=== PATIENT | female | born 1970 | race Caucasian/White ===

== ENCOUNTER 2020-01-26 07:09 | Outpatient (CLI) | payer BC, SELFPAY ==
--- NOTE | ~2020-01-26 | MM_ITS ---
EXAMINATION: MM screening [facility] BI w danielle HISTORY: Screening mammogram TECHNIQUE: Craniocaudal and mediolateral oblique 3-D tomosynthesis images were obtained and synthetic 2-D images were generated. CAD analysis was submitted and interpreted. COMPARISON: 01/24/2019, 01/22/2018, 01/18/2017 BREAST PARENCHYMAL COMPOSITION: There are scattered areas of fibroglandular density. FINDINGS: RIGHT BREAST: There is no evidence of suspicious mass, calcification, or architectural distortion to suggest malignancy. There has been no significant interval change. LEFT BREAST: An asymmetry is present in the middle third of the slightly inner breast best appreciate d 4.2 cm from the nipple on the craniocaudal view. IMPRESSION: 1. Left breast asymmetry on the craniocaudal view. 2. Additional mammographic views and possible breast ultrasound are recommended. BI-RADS Category 0: Incomplete: Needs additional imaging evaluation. Reviewed, dictated and finalized at location A. IMPRESSION: 1. Left breast asymmetry on the craniocaudal view. 2. Additional mammographic views and possible breast ultrasound are recommended . BI-RADS Category 0: Incomplete: Needs additional imaging evaluation.
== END 2020-01-26 07:10 | disposition home or self-care (01) ==
LOC: ANHIMG 07:14
PROVIDERS: PCP Family Medicine; Visit Provider Student in an Organized Health Care Education/Training Program
DX: Z12.31 Encounter for screening mammogram for malignant neoplasm of breast (principal); R92.8 Other abnormal and inconclusive findings on diagnostic imaging of breast
CPT/HCPCS: 77063; 77067

== ENCOUNTER 2020-02-19 11:52 | Outpatient (CLI) | payer BC, SELFPAY ==
--- NOTE | ~2020-02-19 | MMUS_ITS ---
EXAMINATION: MM diagnostic mammo unilat LT, US breast LT limited HISTORY: Left breast asymmetry on screening mammogram TECHNIQUE: Additional 3-D tomosynthesis images of the left breast were performed and synthetic 2-D im ages were generated. CAD analysis was submitted and interpreted. High resolution limited left breast ultrasound was performed. COMPARISON: 01/26/2020, 01/24/2019, 01/22/2018, 01/18/2017 FINDINGS: MAMMOGRAPHIC FINDINGS: A subtle asymmetry persists in the middle third of the breast at the 9:00 location 4 cm deep to the n ipple. With spot compression, this is less prominent than on screening mammogram. There is no suspici ous calcification or architectural distortion. ULTRASOUND: A 7 mm cyst is seen at the 9:00 location. No suspicious cystic or solid mass is identified. IMPRESSION: 1. No mammographic or sonographic evidence of malignancy. 2. Recommend routine screening mammography in one year. BI-RADS Category 2: Benign finding(s). Reviewed, dictated and finalized at location A. IMPRESSION: 1. No mammographic or sonographic evidence of malignancy. 2. Recommend routine screening mammography in one year. BI-RADS Category 2: Benign finding(s).
== END 2020-02-19 11:53 | disposition home or self-care (01) ==
PROVIDERS: PCP Family Medicine; Visit Provider Student in an Organized Health Care Education/Training Program
DX: R92.8 Other abnormal and inconclusive findings on diagnostic imaging of breast (principal)
CPT/HCPCS: 76642; 77065

== ENCOUNTER 2020-08-03 10:06 | Outpatient (CLI) | payer BC, SELFPAY ==
--- NOTE | ~2020-08-03 | US_ITS ---
EXAMINATION: US right upper quadrant EXAM DATE: 08/03/2020 10:34 INDICATION: Other specified abnormal findings of blood chemistry. Elevated liver function tests. TECHNIQUE: Multiple grayscale and Doppler images of the abdomen right upper quadrant were obtained (b y a technologist who performed the scan) and subsequently reviewed. There is no prior study for william bello. FINDINGS: The pancreatic head and body are normal in appearance. The pancreatic tail is not visualized. Mildl y diffusely heterogeneous liver echogenicity, nonspecific. There are no focal liver lesions identifi ed. There is no evidence of intrahepatic biliary duct dilation. Portal venous flow was seen in the hepatopedal, normal direction and has normal Doppler waveform. No right-sided hydronephrosis. Common bile duct measures 3 mm, which is normal. The gallbladder wall is normal in thickness, with ex pected amount of distention. No sonographic evidence of pericholecystic fluid. There is no cholelit hiases. Technologist performing exam reports patient did not demonstrate sonographic Madrid's sign. Please note that this sign is less reliable in patients who have received pain medication. IMPRESSION: 1. Unremarkable abdominal ultrasound exam. Reviewed, dictated and finalized at location B. ERY LABORER
== END 2020-08-03 10:07 | disposition home or self-care (01) ==
PROVIDERS: PCP Family Medicine; Visit Provider Internal Medicine Gastroenterology
DX: R79.89 Other specified abnormal findings of blood chemistry (principal)
CPT/HCPCS: 76705

== ENCOUNTER 2021-02-21 07:12 | Outpatient (CLI) | payer BC, SELFPAY ==
--- NOTE | ~2021-02-21 | MM_ITS ---
EXAMINATION: MM screening [facility] BI w danielle HISTORY: Screening mammogram TECHNIQUE: Craniocaudal and mediolateral oblique 3-D tomosynthesis images were obtained and synthetic 2-D images were generated. CAD analysis was submitted and interpreted. COMPARISON: 02/19/2020, 01/26/2020, 01/24/2019, 01/22/2018 BREAST PARENCHYMAL COMPOSITION: There are scattered areas of fibroglandular density. FINDINGS: There is no evidence of suspicious mass, calcification, or architectural distortion to sugg est malignancy in either breast. There has been no suspicious interval change. IMPRESSION: 1. No mammographic evidence of malignancy. 2. Recommend routine screening mammography in one year. BI-RADS Category 1: Negative Reviewed, dictated and finalized at location A.
== END 2021-02-21 07:13 | disposition home or self-care (01) ==
LOC: ANHIMG 07:16
PROVIDERS: PCP Family Medicine; Visit Provider Student in an Organized Health Care Education/Training Program
DX: Z12.31 Encounter for screening mammogram for malignant neoplasm of breast (principal)
CPT/HCPCS: 77063; 77067

== ENCOUNTER 2022-03-09 14:33 | Outpatient (CLI) | payer BC, SELFPAY ==
--- NOTE | ~2022-03-09 | US_ITS ---
EXAMINATION: US pelvic complete w TV DATE: 03/09/2022 15:12 INDICATION: Multi uterus seen on outside CT. Comparison:Ultrasound dated 03/19/2018 TECHNIQUE: Multiple transabdominal and endovaginal sonographic images of the pelvis performed. FINDINGS: The uterus measures 8.7 x 4.8 x 4.7 cm. Uterus is retroverted. The endometrial complex horacio ures 11 mm. The right ovary measures 2.8 x 1.8 x 2.6 cm and the left ovary measures 1.8 x 0.6 x 1.4 cm. There ar e small follicles in each ovary. Normal doppler signal in both ovaries. There is free fluid in the pelvis. There are no abnormal masses seen on either side. IMPRESSION: 1. Mild endometrial thickening measuring 11 mm. Correlate for menopausal status. Reviewed, dictated and finalized at location A. IMPRESSION: 1. Mild endometrial thickening measuring 11 mm. Correlate for menopausal status .
== END 2022-03-09 14:34 | disposition home or self-care (01) ==
PROVIDERS: PCP Family Medicine; Visit Provider Student in an Organized Health Care Education/Training Program
DX: N85.2 Hypertrophy of uterus (principal)
CPT/HCPCS: 76830; 76856

== ENCOUNTER 2022-03-15 12:05 | Outpatient (CLI) | payer BC, SELFPAY ==
--- NOTE | ~2022-03-15 | MM_ITS ---
EXAMINATION: MM screening [facility] BI w danielle HISTORY: Screening TECHNIQUE: Craniocaudal and mediolateral oblique 3-D tomosynthesis images were obtained and synthetic 2-D images were generated. CAD analysis was submitted and interpreted. COMPARISON: Comparison to multiple prior studies sequentially, with oldest reviewed study dated 03/2017. BREAST PARENCHYMAL COMPOSITION: There are scattered areas of fibroglandular density. FINDINGS: There is a new mass in the upper outer quadrant of the right breast. The left breast is sta ble without evidence for malignancy. IMPRESSION: 1. New right breast mass. 2. Additional mammographic views and possible breast ultrasound are recommended. BI-RADS Category 0: Incomplete: Needs additional imaging evaluation. Reviewed, dictated and finalized at location A. IMPRESSION: 1. New right breast mass. 2. Additional mammographic views and possible breast ultrasound are recommended . BI-RADS Category 0: Incomplete: Needs additional imaging evaluation.
== END 2022-03-15 12:06 | disposition home or self-care (01) ==
PROVIDERS: PCP Family Medicine; Visit Provider Student in an Organized Health Care Education/Training Program
DX: Z12.31 Encounter for screening mammogram for malignant neoplasm of breast (principal); R92.8 Other abnormal and inconclusive findings on diagnostic imaging of breast
CPT/HCPCS: 77063; 77067

== ENCOUNTER 2022-03-27 12:13 | Outpatient (CLI) | payer BC, SELFPAY ==
--- NOTE | ~2022-03-27 | MMUS_ITS ---
EXAMINATION: MM diagnostic [facility] RT w danielle, US breast RT complete HISTORY: New right breast mass reported in upper outer quadrant of right breast on 03/15/2022 screening mammogram TECHNIQUE: Additional 3-D tomosynthesis images of the right breast were performed and synthetic 2-D i mages were generated. CAD analysis was submitted and interpreted. High resolution complete right [facility] st ultrasound including all 4 quadrants and subareolar area was performed. COMPARISON: 03/15/2022 bilateral screening mammogram FINDINGS: MAMMOGRAPHIC FINDINGS: A circumscribed approximately 18 x 21 mm opacity is noted posteriorly in the upper outer quadrant. Ci rcumscribed margins and low density as well as partial halo sign suggest benign process, likely a cys t. ULTRASOUND: 10:00 2 cm from nipple: 2.3 x 1.2 x 1.8 cm sonolucency with through transmission posterior enhancemen t, no internal vascularity, consistent with cyst. 3.8 x 4.1 x 4 mm circumscribed mixed hypoechoic and fatty lesion without internal vascularity or susp icious shadowing is noted at 10:00 2 cm from nipple, likely benign. IMPRESSION: 1. Probably benign findings 2. Six-month targeted right breast ultrasound at 10:00 2 cm from the nipple is recommended. BI-RADS category 3, probably benign findings. Reviewed, dictated and finalized at location C. IMPRESSION: 1. Probably benign findings 2. Six-month targeted right breast ultrasound at 10:00 2 cm from the nipple is recommended. BI-RADS category 3, probably benign findings.
== END 2022-03-27 12:14 | disposition home or self-care (01) ==
LOC: ANHIMG 12:14
PROVIDERS: PCP Family Medicine; Visit Provider Student in an Organized Health Care Education/Training Program
DX: R92.8 Other abnormal and inconclusive findings on diagnostic imaging of breast (principal)
CPT/HCPCS: 76641; 77061; 77065; G0279

== ENCOUNTER → 2022-07-21 15:17 | Outpatient (CLI) | payer BC, SELFPAY ==
--- NOTE | ~2022-07-21 | XR_ITS ---
XR wrist LT min 3V DATE: 07/21/2022 15:31 INDICATION: Osteoarthritis TECHNIQUE: 4 views COMPARISON: None FINDINGS: There is a distal radial volar plate with multiple anteroposteriorly directed through screw s. No recent fracture or dislocation. No periosteal reaction or bone destruction. Moderately severe osteoarthritis at the first carpometacarpal joint. IMPRESSION: Moderately severe osteoarthritis at first carpometacarpal joint Reviewed, dictated and finalized at location B. LE HELPER
--- NOTE | ~2022-07-21 | XR_ITS ---
XR wrist RT min 3V DATE: 07/21/2022 15:31 INDICATION: Bilateral osteoarthritis TECHNIQUE: 4 views COMPARISON: None FINDINGS: Moderate osteoarthritis at the first carpometacarpal joint. No fracture or dislocation, periosteal reaction or bone destruction. No erosive change or chondrocalc inosis. IMPRESSION: Moderate osteoarthrosis at first carpometacarpal joint Reviewed, dictated and finalized at location B. ESS DEVELOPMENT ENGINEER
== END ==
PROVIDERS: PCP Family Medicine; Visit Provider Plastic Surgery
DX: M19.041 Primary osteoarthritis, right hand (principal); M19.042 Primary osteoarthritis, left hand
CPT/HCPCS: 73110

== ENCOUNTER 2022-10-02 10:58 | Outpatient (CLI) | payer BC, SELFPAY ==
--- NOTE | ~2022-10-02 | US_ITS ---
US breast RT limited DATE: 10/02/2022 11:34 INDICATION: Six-month follow-up of probably benign 2.3 x 1.2 x 1.8 cm cyst at 10:00 2 cm from nipple TECHNIQUE: High-resolution color flow ultrasound imaging targeted at 10:00 2 cm from nipple COMPARISON: 03/27/2022 diagnostic right mammogram and complete right breast ultrasound examination FINDINGS: Circumscribed sonolucency measuring 1.2 x 1 x 1.3 cm, with through transmission posterior e nhancement, consistent with simple cyst, diminished in size from approximately 2.4 x 1.2 x 1.9 cm on 03/27/2022. IMPRESSION: BI-RADS Category 2: Benign finding Recommendation: Routine mammographic screening Reviewed, dictated and finalized at Location A. Reviewed, dictated and finalized at location A. N'S STUDIES LECTURER
== END 2022-10-02 10:59 | disposition home or self-care (01) ==
LOC: ANHIMG 10:59
PROVIDERS: PCP Family Medicine; Visit Provider Student in an Organized Health Care Education/Training Program
DX: R92.8 Other abnormal and inconclusive findings on diagnostic imaging of breast (principal)
CPT/HCPCS: 76642

== ENCOUNTER 2023-06-19 09:05 | Outpatient (CLI) | payer BC, SELFPAY ==
--- NOTE | 2023-06-26 20:56 | WPDHOMESLEEP ---
Sleep Study - Home Unattended Date of Study: 06/19/23 Ordering Provider: Asher Horner APRN Interpreting Provider: Zaria Wolff, DO Home Sleep Study Type: Watch PAT Height: 1.63 m Weight: 74.843 kg Body Mass Index: 28.3 Neck Circumference (inches): 13 [place]: 6 Reason for Sleep Study Loud snoring, daytime hypersomnia Sleep History The patient is a 53-year-old with anxiety, chronic inflammatory demyelinating polyneuropathy, dyslipidemia, hypothyroidism, IBS with constipation myopathy, prediabetes proximal muscle weakness that had a sleep study ordered by the pulmonary group for evaluation of sleep apnea. The patient denies awakening from sleep short of breath. She denies awakening at night with heartburn, belching or cough. She frequently snores loudly enough that others complain. She denies having trouble sleeping when she has a cold. She denies waking up gasping for air throughout the night. She denies having breathing problems at night observed by herself or others. She rarely sweats excessively at night. He denies having heart palpitations or irregular heartbeats during the night. She denies falling asleep the day and while driving. She denies cataplexy and hypnagogic/ hypnopompic hallucinations. She denies having trouble at school or work due to sleepiness. She rarely feels unable to move while waking up or falling asleep. She denies feeling afraid of going to sleep. She denies having nightmares. She occasionally remembers her dreams. She occasionally has thoughts racing through her mind. She denies feeling sad or depressed. She occasionally has anxiety. He rarely has muscular tension. She rarely notices parts of her body jerk. She rarely kicks during night. She rarely has crawling and aching feelings in her and rarely has leg pain during the night. She rarely grinds her teeth during sleep but never awakens with morning jaw pain. She is rarely bothered by pain during the day and never awakened by pain during the night. She occasionally wakes feeling stiff in the morning. She rarely wakes up with sore or achy muscles. She rarely wakes up with pain in the, spine or other joints. She goes to bed at 9:30 p.m. on weekdays and between 930 to 10:30 p.m. on the weekends. She is able to fall asleep within a few. She wakes up 1-2 times throughout the night to let her dog out and get it drink. She is able to fall asleep relatively quickly. She wakes up at 6:00 a.m. on both weekdays and weekends. She typically gets 8-9 hours of sleep per night. She does not stay in bed long after waking up in the morning. She currently lives with her and children. She denies consuming any caffeinated beverages within 2 hours of bedtime. She denies engaging in physical exercise before bedtime. She will watch television before falling asleep. She will take naps in afternoon or the evening and they are refreshing. She will drink an occasional caffeinated beverage throughout the day but not on a regular basis. She rarely consumes alcoholic beverages. She denies tobacco and recreational drug use. [facility] Past Medical History Medical History Anxiety CIDP (chronic inflammatory demyelinating polyneuropathy) Dyslipidemia Elevated liver enzymes Hypothyroid Internal hemorrhoids Irritable bowel syndrome with constipation Left wrist fracture (~10/27/02) Myalgia Myopathy Prediabetes Proximal muscle weakness Vaginal delivery Vitamin D deficiency Surgical History Surgical History History of arthroscopy of knee (~1984) History of elbow surgery (~2013) History of eye surgery (~1971) History of open reduction and internal fixation (ORIF) procedure (~10/27/02) wrist History of strabismus surgery Family History Family History Father Family history of hyperchol
[2023-06-26 21:08] VITALS: BMI 28.3
== END 2023-06-20 09:23 | disposition home or self-care (01) ==
LOC: ANHCSM 09:07
PROVIDERS: PCP Family Medicine; Visit Provider Nurse Practitioner Family
DX: R06.83 Snoring (principal); R40.0 Somnolence
CPT/HCPCS: 95800

== ENCOUNTER 2023-08-16 16:28 | Outpatient (CLI) | payer BC, SELFPAY ==
--- NOTE | ~2023-08-16 | MM_ITS ---
EXAMINATION: MM screening [facility] BI w danielle HISTORY: Screening mammogram TECHNIQUE: Craniocaudal and mediolateral oblique 3-D tomosynthesis images were obtained and synthetic 2-D images were generated. CAD analysis was submitted and interpreted. COMPARISON: 03/27/2022, 03/15/2022, 02/21/2021, 01/26/2020, 01/24/2019 BREAST PARENCHYMAL COMPOSITION:Dense: The breasts are heterogeneously dense, which may obscure small masses. FINDINGS: No suspicious mass, calcification, or architectural distortion are identified in either truman ast to suggest malignancy. There has been no suspicious interval change. IMPRESSION: No mammographic evidence of malignancy. Recommend routine screening mammography in one year. BI-RADS Category 1: Negative Reviewed, dictated and finalized at location . ITE TREATER HELPER
== END 2023-08-16 16:29 | disposition home or self-care (01) ==
LOC: ANHIMG 16:30
PROVIDERS: PCP Family Medicine; Visit Provider Obstetrics & Gynecology
DX: Z12.31 Encounter for screening mammogram for malignant neoplasm of breast (principal)
CPT/HCPCS: 77063; 77067

== ENCOUNTER 2023-10-19 16:28 | Outpatient (CLI) | payer BC, SELFPAY ==
--- NOTE | ~2023-10-19 | US_ITS ---
EXAMINATION: US thyroid DATE: 10/19/2023 17:05 INDICATION: Hypothyroidism, unspecified. TECHNIQUE: Multiple ultrasound images of the thyroid were obtained. COMPARISON: None. FINDINGS: The right thyroid lobe measures 3.7 x 1.6 x 1.3 cm. The left thyroid lobe measures 3.8 x 1.1 x 1.4 c m. The thyroid is diffusely heterogeneous and hypoechoic. Vascularity is normal. No discrete nodule. IMPRESSION: 1. Heterogeneous thyroid, likely chronic lymphocytic (Stepan) thyroiditis. Reviewed, dictated and finalized at location E. K DRILLER
== END 2023-10-19 16:29 | disposition home or self-care (01) ==
PROVIDERS: PCP Family Medicine; Visit Provider Internal Medicine
DX: E03.9 Hypothyroidism, unspecified (principal); E04.9 Nontoxic goiter, unspecified
CPT/HCPCS: 76536

== ENCOUNTER 2024-04-10 11:19 | Outpatient (CLI) | payer BC, SELFPAY ==
[2024-04-10 12:25] LABS: Hematocrit 40.4 % (37.0-47.0); Hemoglobin 12.5 g/dL (12.0-15.0); Mean Corpuscular HGB Conc 30.9 g/dl (32-36); Mean Corpuscular Hemoglobin 27.4 pg (26-34); Mean Corpuscular Volume 88.4 fl (80-100); Mean Platelet Volume 8.8 fl (7.4-10.4); Platelet Count Result 414 k/mm3 (150-375); Red Blood Count 4.57 M/mm3 (4.2-5.4); Red Cell Distribution Width 14.6 % (11.5-14.5); White Blood Count 9.7 K/mm3 (4.5-10.0)
[2024-04-10 12:59] LABS: Alanine Aminotransferase 341 U/L (6-35); Alkaline Phosphatase 83 U/L (38-126); Anion Gap 7 mmol/L (4-12); Aspartate Amino Transferase 293 U/L (14-36); Bilirubin,Total 0.3 mg/dL (0.2-1.3); Blood Urea Nitrogen 15 mg/dL (7-17); Calcium 9.3 mg/dL (8.4-10.2); Carbon Dioxide 28 mmol/L (22-30); Chloride 100 mmol/L (98-107); Estimated Glomerular Filt Rate > 60; Glucose 86 mg/dL (65-110); Potassium 4.3 mmol/L (3.4-5.0); Sodium 135 mmol/L (137-145)
[2024-04-10 13:51] LABS: Hepatitis B Surface Antigen Negative (Negative)
[2024-04-10 13:57] LABS: HAV RESULT Negative (Negative); Hepatitis B Core IgM Result Negative (Negative)
[2024-04-10 14:09] LABS: Hepatitis C Virus Antibody Negative (Negative)
[2024-04-10 15:23] LABS: Creatine Kinase 9865 U/L (30-135)
[2024-04-18 16:28] LABS: Aldolase 74.7 U/L (< OR = 8.1)
== END 2024-04-10 11:20 | disposition home or self-care (01) ==
LOC: ANHLAB 11:21
PROVIDERS: PCP Family Medicine; Visit Provider Nurse Practitioner Family
DX: R74.8 Abnormal levels of other serum enzymes (principal); G72.9 Myopathy, unspecified
CPT/HCPCS: 36415; 80053; 80074; 82085; 82550; 85027

== ENCOUNTER 2024-04-15 08:16 | Outpatient (CLI) | payer BC, SELFPAY ==
--- NOTE | ~2024-04-15 | US_ITS ---
Limited Abdominal Sonogram: Real-time sonographic imaging of the right upper quadrant was performed. Clinical History: Abnormal serum enzyme levels Findings: The liver appears normal with no evidence of mass lesion or bile duct dilatation. Main por lcovis vein demonstrates normal direction of flow. The gallbladder is well distended, and appears normal with no evidence of gallstone or wall thickening. The common bile duct measures 3 mm. The visualize d pancreas, aorta, and IVC are unremarkable. Impression: No significant abnormality seen. Reviewed, dictated and finalized at location M. Impression: No significant abnormality seen.
== END 2024-04-15 08:17 | disposition home or self-care (01) ==
PROVIDERS: PCP Family Medicine; Visit Provider Nurse Practitioner Family
DX: R74.8 Abnormal levels of other serum enzymes (principal)
CPT/HCPCS: 76705

== ENCOUNTER 2024-06-09 08:10 | Emergency (ER) | payer BC, SELFPAY ==
--- NOTE | ~2024-06-09 | XR_ITS ---
EXAMINATION: XR abdomen/kub 1V DATE: 06/09/2024 08:39 INDICATION: Low abdominal cramping and bloating. TECHNIQUE: A supine view of the abdomen on 2 radiographs was obtained. COMPARISON: Small bowel series 12/10/2007 FINDINGS: There are no dilated loops of bowel. There is a small volume of stool in the colon. Small c alcifications in the pelvis are likely phleboliths. IMPRESSION: 1. Normal bowel gas pattern. Reviewed, dictated and finalized at location []
--- NOTE | 2024-06-09 08:21 | ED.ABDPAIN ---
HPI - Abdominal Pain General Chief Complaint: Abdominal Pain Stated Complaint: Stomach Pain/Vomiting Time Seen by Provider: 06/09/24 08:21 Source: patient Mode of arrival: ambulatory Limitations: no limitations History of Present Illness HPI narrative: 54 yo F presents with c/o ABD cramping, bloating since 2am. Has had 3 to 5 bowel movements. States were normal, not diarrhea. Hx of IBS. unsure if having IBS flare or appendicitis. No fever, chills, bodyaches, sweats. Has not taken any pain medication. Reports that pain is not that bad right now, is improving . Denies urinary symptoms. yesterday states ate alot of fruit . Watermelon, honey dew, cantaloupe. Also had cauliflower for dinner which is not normal for her. pt is well appearing, no pain distress. All systems reviewed and negative except as noted above. Related Data Home Medications Medication Instructions Recorded Confirmed cholecalciferol (vitamin D3) 125 250 mcg PO DAILY 04/26/23 05/08/24 mcg (5,000 unit) capsule vitamin B complex 1 tablet PO DAILY 04/26/23 05/08/24 Bacillus coagulans 250 million 1 cell PO DAILY 03/20/24 05/08/24 cell chewable tablet (Digestive Advantage Probiotic Gummy) Allergies Allergy/AdvReac Type Severity Reaction Status Date / Time [id number]-[id number]-FpA Reductase AdvReac Unknown myopathy Verified 06/09/24 08:46 Inhibitor [Gsgiutx-Uqz-Xmv Reductase Inhibitor] Review of Systems Review of Systems: CONSTITUTIONAL: Denies fever, chills, or sweats. EYES: Denies visual changes, redness, or discharge. ENT: Denies rhinorrhea, congestion, sore throat, or otalgia. CARDIOVASCULAR: Denies chest pain, palpitations, or edema. RESPIRATORY: Denies cough or dyspnea. GASTROINTESTINAL: Reports lower abdominal cramping, bloating. Denies nausea, vomiting, or diarrhea. GENITOURINARY: Denies dysuria or hematuria. SKIN: Denies rash or itching. MUSCULOSKELETAL: Denies back pain, joint pain, or myalgia. NEUROLOGIC: Denies headache, numbness, or weakness. PSYCHIATRIC: Denies anxiety or depression. All other systems reviewed are negative, except as documented in HPI. [facility] Past Medical History Medical History Anxiety CIDP (chronic inflammatory demyelinating polyneuropathy) Dyslipidemia Elevated liver enzymes Hypothyroid Internal hemorrhoids Irritable bowel syndrome with constipation Left wrist fracture (~10/27/02) Myalgia Myopathy Prediabetes Proximal muscle weakness Vaginal delivery Vitamin D deficiency Surgical History Surgical History History of arthroscopy of knee (~1984) History of elbow surgery (~2013) History of eye surgery (~1971) History of open reduction and internal fixation (ORIF) procedure (~10/27/02) wrist History of strabismus surgery Family History Family History Father Family history of hypercholesterolemia Other Family history of cardiovascular disease Social History Social History (Updated 05/08/24 @ 09:39 by Parviz Chawla MA) Smoking status: Never smoker Second hand tobacco smoke exposure: No Alcohol intake: current Alcohol use details: socially Substance use: never Substance use type: does not use Do You Feel Safe in your Home?: Yes Lack of Transportation: No Lack of Food: Never True Current Housing: I Have Housing Concerned About Future Housing: No Difficulty Paying Gas/Electric Bills: No Difficulty Paying for Meds: No Currently Unemployed: No Education: Trade/Vocational Certificate Difficulty w/ Childcare or Family Care: No Living arrangements: with family Occupation/Education: occupation Gender identity (if verbalized by the patient): Female Sexual Orientation (if Verbalized by the Patient): Straight or Heterosexual Agree to blood products: Yes Comments At time of signature, agree with nursing past medical, surgical, social and family history. There is no relevant family history pertinent to the presenting complaint. Exam Narrative: GENERAL: This is a well-nourished, well-developed patient, in no apparent distress. HEAD: normocephalic, atraumatic. EYES: PERRL. Sclera clear/white. Vision is grossly intact. EARS: External ears normal, auditory canals clear and without drainage, TMs normal without perforation. Hearing grossly intact. NOSE: External nose normal with no obvious nasal discharge, nares without redness, no rhinorrhea. THROAT: Mucous membranes moist, posterior pharynx clear. NECK: Neck supple, non-tender without lymphadenopathy, masses or thyromegaly. CARDIOVASCULAR: Regular rate and rhythm without murmurs, gallops, or rubs. RESPIRATORY: Clear to auscultation. Breath sounds equal bilaterally. No wheezes, rales, or rhonchi. GASTROINTESTINAL: Abdomen soft, suprapubic tender, mild distension. Bowel sounds are hyper active. No hepato-splenomegaly, or palpable masses. No guarding. SKIN: warm, Dry, intact with no suspicious lesions or rash, good texture and turgor. NEURO: awake, alert, and oriented to person, place and time. There were no obvious focal neurologic abnormalities. EXTREMITIES: No joint tenderness, effusion, or edema noted. Course Course Level of Care: Express Care Visit Vital Signs Vital signs: Reviewed MDM - Abdominal Pain MDM Narrative Medical decision making narrative: Discussed x-ray results with patient. Negative for bowel obstruction. Recommend patient purchase [id number] Gas-X to treat her symptoms. Recommend for any worsening of symptoms, right lower quadrant abdominal pain, change in bowel movement, fever go to the ER. Patient continues to be well-appearing, no pain distress. Patient is aware of diagnosis, understands and agrees to treatment plan. Anticipatory guidance given. Patient agrees to follow-up as directed and is aware of reasons to seek care at the emergency department. Portions of this record may have been created with voice recognition software Differential Diagnosis Differential diagnosis: Likely abdominal pain, acute appendicitis, constipation, diverticulitis, gastroenteritis and small bowel obstruction Imaging Data My impression: Agree with radiologist Radiologist's impression: EXAMINATION: XR abdomen/kub 1V DATE: 06/09/2024 08:39 INDICATION: Low abdominal cramping and bloating. TECHNIQUE: A supine view of the abdomen on 2 radiographs was obtained. COMPARISON: Small bowel series 12/10/2007 FINDINGS: There are no dilated loops of bowel. There is a small volume of stool in the colon. Small calcifications in the pelvis are likely phleboliths. IMPRESSION: 1. Normal bowel gas pattern. Discharge Plan Discharge Clinical Impression: Abdominal gas pain Patient Disposition: Home, Self-Care Condition: Stable Instructions: Gas and Bloating (ED), Abdominal Pain (ED) Additional Instructions: The x-ray of your abdomen was normal. Purchase over the counter Gas X and take as directed on packaging. Drink at least 64 ounces of water a day. Eat a bland diet today. Avoid spicy, fried, greasy food. If you have severe pain, fever, worsening of symptoms go to the ER. Prescriptions: No Action vitamin B complex Tablet 1 tablet PO DAILY cholecalciferol (vitamin D3) 125 mcg (5,000 unit) capsule 250 mcg PO DAILY Digestive Advantage Prob Gummy 250 million cell tablet,chewable PO ezetimibe [Zetia] 10 mg tablet 10 mg PO DAILY Qty: 90 3RF colestipol 1 gram tablet 1 g PO BID Qty: 180 1RF levothyroxine [Tirosint] 50 mcg capsule 50 mcg PO DAILY Qty: 90 2RF Follow-up/Referrals: Isra Burns MD [Primary Care Provider] - Time of Disposition: 08:52
[2024-06-09 08:23] VITALS: BP 165/80; PULSE 73; RESP 15; TEMP 36.3; O2SAT 98
== END 2024-06-09 08:54 | disposition home or self-care (01) ==
PROVIDERS: Emergency Provider Nurse Practitioner Family; PCP Family Medicine
DX: R14.1 Gas pain (principal); G61.81 Chronic inflammatory demyelinating polyneuritis; E78.5 Hyperlipidemia, unspecified; E03.9 Hypothyroidism, unspecified; R73.03 Prediabetes; E55.9 Vitamin D deficiency, unspecified
CPT/HCPCS: 74018; 99213; G0463

== ENCOUNTER 2024-06-10 00:14 | Inpatient (IN) | payer BC, SELFPAY ==
[2024-06-10] VITALS (20 sets, daily range): BP systolic 118–154; BP diastolic 56–67; PULSE 72–103; RESP 13–25; TEMP 36.4–37.5; O2SAT 92–100
--- NOTE | ~2024-06-10 | CT_ITS ---
CT of the Abdomen and Pelvis: Indication: Abdominal pain Technique: 2.5 mm axial scans were obtained through the abdomen and pelvis following intravenous adm inistration of 100 cc of Omnipaque 350. Dose reduction technique was used on this scan by utilizing a utomated exposure control and iterative reconstruction technique. The dose-length product (DLP) was 4 75.75 mGy-cm. Findings: Scans through the lung bases are unremarkable. The liver, spleen, pancreas, gallbladder, adrenals and kidneys are within normal limits. There are at herosclerotic calcifications of the aorta. No lymphadenopathy. Appendix is extensive dilated 10-11 mm. There is right lower quadrant inflammatory change. There is p robable mild wall thickening of the terminal ileum. No yossi bowel obstruction evident. Images through the pelvis were performed. Urinary bladder unremarkable. No adnexal mass seen. Small a mount of pelvic ascites present. Impression: Suspected acute appendicitis with right lower quadrant inflammatory change. No abscess or free air. O ther inflammatory bowel disease/enteritis would be a potential alternative consideration with reactiv e dilatation of the appendix. Correlate clinically. Reviewed, dictated and finalized at location . Impression: Suspected acute appendicitis with right lower quadrant inflammatory change. No abscess or free air. Other inflammatory bowel disease/enteritis would be a pote ntial alternative consideration with reactive dilatation of the appendix. Corre late clinically.
[2024-06-10 00:35] LABS: Basophils Percent Auto 0.4 % (0.2-1.2); Hematocrit 42.5 % (37.0-47.0); Hemoglobin 14.1 g/dL (12.0-15.0); Immature Granulocyte Absolute 0.04 K/mm3 (0.00-0.031); Immature Granulocyte Percent A 0.4 % (0-0.5); Lymphocytes Absolute Auto 0.87 K/mm3 (0.9-3.2); Lymphocytes Percent Auto 7.7 % (18.3-44.2); Mean Corpuscular HGB Conc 33.2 g/dl (32-36); Mean Corpuscular Hemoglobin 28.1 pg (26-34); Mean Corpuscular Volume 84.7 fl (80-100); Mean Platelet Volume 8.5 fl (7.4-10.4); Monocytes Absolute Auto 0.3 K/mm3 (0.1-0.6); Monocytes Percent Auto 2.4 % (2.6-8.5); Neutrophils Absolute Auto 10.1 K/mm3 (1.3-6.7); Neutrophils Percent Auto 89.1 % (45.5-73.1); Platelet Count Result 402 k/mm3 (150-375); Red Blood Count 5.02 M/mm3 (4.2-5.4); White Blood Count 11.3 K/mm3 (4.5-10.0)
[2024-06-10 00:58] LABS: Alanine Aminotransferase 345 U/L (6-35); Albumin Level 4.3 g/dL (3.5-5.1); Alkaline Phosphatase 86 U/L (38-126); Anion Gap 15 mmol/L (4-12); Aspartate Amino Transferase 232 U/L (14-36); Bilirubin,Total 1.6 mg/dL (0.2-1.3); Blood Urea Nitrogen 14 mg/dL (7-17); Calcium 9.3 mg/dL (8.4-10.2); Carbon Dioxide 17 mmol/L (22-30); Chloride 101 mmol/L (98-107); Estimated CRCL calculation 105 ml/min; Estimated Glomerular Filt Rate > 60; Glucose 232 mg/dL (65-110); Lipase 219 U/L (23-300); Potassium 3.9 mmol/L (3.4-5.0); Sodium 133 mmol/L (137-145)
[2024-06-10 05:24] LABS: BEDSIDEPREGUCG Negative (Negative)
[2024-06-10 05:47] LABS: Bacteria Urine 3+ /hpf; Budding Yeast Urine Present /hpf; Granular Casts Urine Present /lpf; Mucus Urine Present /lpf; Need Manual Microscopic Reviewed; Non Pathogenic Casts >20; RBC Urine >100 /hpf (0-2); Squamous Epithelial Cell Urine Many /hpf (Few)
[2024-06-10 05:49] LABS: Add Urine Microscopic? YES; Appearance Urine Turbid (Clear); Bilirubin Urine 2+ (Negative); Blood Urine 3+ (Negative); Color Urine Brown (Yellow); Glucose Urine UA Trace mg/dL (Negative); Ketones Urine 2+ mg/dL (Negative); Leukocyte Esterase Ur 1+ LEU/UL (Negative); Nitrate Urine Negative (Negative); Protein Urine 4+ mg/dL (Negative); Specific Grav Ur 1.036 (1.001-1.035); pH Urine 5.5 (5.0-9.0)
--- NOTE | 2024-06-10 06:25 | ED.GENADULT ---
HPI - General Adult General Chief complaint: Abdominal Pain <Marcelo Irving MD - Last Filed: 06/10/24 06:26> Stated complaint: medial abdominal pain with cramping <Marcelo Irving MD - Last Filed: 06/10/24 06:26> Time Seen by Provider: 06/10/24 06:31 <Marcelo Irving MD - Last Filed: 06/10/24 06:26> History of Present Illness HPI narrative: Patient is a 54-year-old female who presents emergency department with chief complaint of abdominal pain. Patient reports that she has been having abdominal discomfort since earlier this week and was seen in the urgent care and diagnosed gas pains. The patient reports she has had multiple bowel movements but no diarrhea reports that she has had some nausea as well the patient reports the pain is a cramping like pain generalized throughout the abdomen reports worse with palpation patient does report that her abdomen feels more full than normal <Marcelo Irving MD - Last Filed: 06/10/24 06:26> Related Data Home medications: Home Medications Medication Instructions Recorded Confirmed cholecalciferol (vitamin D3) 125 250 mcg PO DAILY 04/26/23 05/08/24 mcg (5,000 unit) capsule vitamin B complex 1 tablet PO DAILY 04/26/23 05/08/24 Bacillus coagulans 250 million 1 cell PO DAILY 03/20/24 05/08/24 cell chewable tablet (Digestive Advantage Probiotic Gummy) <Marcelo Irving MD - Last Filed: 06/10/24 06:26> Allergies/adverse reactions: Allergies Allergy/AdvReac Type Severity Reaction Status Date / Time Qdiuaev-AMC-VzW Reductase AdvReac Unknown myopathy Verified 06/09/24 08:46 Inhibitor [Jirwaux-Msz-Cqf Reductase Inhibitor] <Marcelo Irving MD - Last Filed: 06/10/24 06:26> Review of Systems Review of Systems: A 10 system review of systems was completed on the patient and is negative except for what is stated in the HPI. Nursing and ancillary documentation was reviewed. <Marcelo Irving MD - Last Filed: 06/10/24 06:26> PMFSH Past Medical History Medical History: Medical History Anxiety CIDP (chronic inflammatory demyelinating polyneuropathy) Dyslipidemia Elevated liver enzymes Hypothyroid Internal hemorrhoids Irritable bowel syndrome with constipation Left wrist fracture (~10/27/02) Myalgia Myopathy Prediabetes Proximal muscle weakness Vaginal delivery Vitamin D deficiency <Marcelo Irving MD - Last Filed: 06/10/24 06:26> Surgical History Surgical History: Surgical History History of arthroscopy of knee (~1984) History of elbow surgery (~2013) History of eye surgery (~1971) History of open reduction and internal fixation (ORIF) procedure (~10/27/02) wrist History of strabismus surgery <Marcelo Irving MD - Last Filed: 06/10/24 06:26> Family History Family History: Family History Father Family history of hypercholesterolemia Other Family history of cardiovascular disease <Marcelo Irving MD - Last Filed: 06/10/24 06:26> Social History Social History: Social History Smoking status: Never smoker Second hand tobacco smoke exposure: No Alcohol intake: current Alcohol use details: socially Substance use: never Substance use type: does not use Do You Feel Safe in your Home?: Yes Lack of Transportation: No Lack of Food: Never True Current Housing: I Have Housing Concerned About Future Housing: No Difficulty Paying Gas/Electric Bills: No Difficulty Paying for Meds: No Currently Unemployed: No Education: Trade/Vocational Certificate Difficulty w/ Childcare or Family Care: No Living arrangements: with family Occupation/Education: occupation Gender identity (if verbalized by the patient): Female Sexual Orientation (if Verbalized by the Patient): Straight or Heterosexual Agree to blood products: Yes <Marcelo Irving MD - Last Filed: 06/10/24 06:26> Exam Narrative: GENERAL: Well-appearing, well-nourished, and in no acute distress. HEAD: Normocephalic, atraumatic. EYES: PERRLA and EOMI. ENT: Nares clear, no rhinorrhea or epistaxis. Mucous membranes moist. NECK: Supple. CHEST: Clear to auscultation. No respiratory distress. HEART: Regular rate and rhythm. No murmur heard. Normal peripheral pulses. ABDOMEN: Soft, diffusely tender to palpation, nondistended, normal active bowel sounds. EXTREMITIES: Normal range of motion. No edema. SKIN: Warm, dry, no rash. NEURO: No focal deficits. Alert and oriented x3. PSYCH: Normal mood and affect. <Marcelo Irving MD - Last Filed: 06/10/24 06:26> Course Course Emergency Course: I assumed care of this patient at shift change with pending CT and disposition. I have re-examined the patient she is tender in the right lower abdomen. Discussed labs and CT findings with the patient. 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 Discussed with Dr. Lee will admit , advised IV zosyn <Jimenez Banks MD - Last Filed: 06/10/24 09:29> Vital Signs Vital signs: Vital Signs Temperature 36.6 C 06/10/24 00:15 Pulse Rate 100 06/10/24 00:15 Respiratory Rate 21 H 06/10/24 00:15 Blood Pressure 154/61 H 06/10/24 00:15 Pulse Oximetry 98 06/10/24 00:15 Oxygen Delivery Room Air 06/10/24 00:15 Temperature 36.6 C 06/10/24 00:15 Pulse Rate 95 06/10/24 07:59 Respiratory Rate 24 H 06/10/24 07:59 Blood Pressure 137/64 06/10/24 07:59 Pulse Oximetry 95 06/10/24 07:59 Oxygen Delivery Room Air 06/10/24 00:15 <Marcelo Irving MD - Last Filed: 06/10/24 06:26> Vital Signs Temperature 36.6 C 06/10/24 00:15 Pulse Rate 100 06/10/24 00:15 Respiratory Rate 21 H 06/10/24 00:15 Blood Pressure 154/61 H 06/10/24 00:15 Pulse Oximetry 98 06/10/24 00:15 Oxygen Delivery Room Air 06/10/24 00:15 Temperature 36.6 C 06/10/24 00:15 Pulse Rate 95 06/10/24 07:59 Respiratory Rate 24 H 06/10/24 07:59 Blood Pressure 137/64 06/10/24 07:59 Pulse Oximetry 95 06/10/24 07:59 Oxygen Delivery Room Air 06/10/24 00:15 <Jimenez Banks MD - Last Filed: 06/10/24 09:29> Medical Decision Making Differential Diagnosis Differential Diagnosis: Gastroenteritis, acute appendicitis, renal colic <Jimenez Banks MD - Last Filed: 06/10/24 09:29> Vital Signs Vital Signs: Vital Signs Temperature 36.6 C 06/10/24 00:15 Pulse Rate 100 06/10/24 00:15 Respiratory Rate 21 H 06/10/24 00:15 Blood Pressure 154/61 H 06/10/24 00:15 Pulse Oximetry 98 06/10/24 00:15 Oxygen Delivery Room Air 06/10/24 00:15 Temperature 36.6 C 06/10/24 00:15 Pulse Rate 95 06/10/24 07:59 Respiratory Rate 24 H 06/10/24 07:59 Blood Pressure 137/64 06/10/24 07:59 Pulse Oximetry 95 06/10/24 07:59 Oxygen Delivery Room Air 06/10/24 00:15 <Marcelo Irving MD - Last Filed: 06/10/24 06:26> Vital Signs Temperature 36.6 C 06/10/24 00:15 Pulse Rate 100 06/10/24 00:15 Respiratory Rate 21 H 06/10/24 00:15 Blood Pressure 154/61 H 06/10/24 00:15 Pulse Oximetry 98 06/10/24 00:15 Oxygen Delivery Room Air 06/10/24 00:15 Temperature 36.6 C 06/10/24 00:15 Pulse Rate 95 06/10/24 07:59 Respiratory Rate 24 H 06/10/24 07:59 Blood Pressure 137/64 06/10/24 07:59 Pulse Oximetry 95 06/10/24 07:59 Oxygen Delivery Room Air 06/10/24 00:15 <Jimenez Banks MD - Last Filed: 06/10/24 09:29> Lab Data Lab results reviewed: Yes I reviewed the patient's lab results. <Jimenez Banks MD - Last Filed: 06/10/24 09:29> Result diagrams: 06/10/24 00:30 06/10/24 00:31 <Marcelo Irving MD - Last Filed: 06/10/24 06:26> Labs: Lab Results 06/10/24 06/10/24 06/10/24 Range/Units 00:30 00:31 05:20 WBC 11.3 H (4.5-10.0) K/mm3 RBC 5.02 (4.2-5.4) M/mm3 Hgb 14.1 (12.0-15.0) g/dL Hct 42.5 (37.0-47.0) % MCV 84.7 (80-100) fl MCH 28.1 (26-34) pg MCHC 33.2 (32-36) g/dl RDW 14.0 (11.5-14.5) % Plt Count 402 H (150-375) k/mm3 MPV 8.5 (7.4-10.4) fl Immature Gran % (Auto) 0.4 (0-0.5) % Neut % (Auto) 89.1 H (45.5-73.1) % Lymph % (Auto) 7.7 L (18.3-44.2) % [place] % (Auto) 2.4 L (2.6-8.5) % Eos % (Auto) 0.0 (0-4.4) % Baso % (Auto) 0.4 (0.2-1.2) % Lymph # (Auto) 0.87 L (0.9-3.2) K/mm3 [place] # (Auto) 0.3 (0.1-0.6) K/mm3 Eos # (Auto) 0.0 (0-0.3) K/mm3 Baso # (Auto) 0.0 (0.0-0.1) K/mm3 Abs Immat Gran (auto) 0.04 H (0.00-0.031) K/mm3 Absolute Neuts (auto) 10.1 H (1.3-6.7) K/mm3 Absolute Nucleated RBC 0.000 (0.0-0.012) K/mm3 Nucleated RBC % 0.0 (0.0-0.2) % Sodium 133 L (137-145) mmol/L Potassium 3.9 (3.4-5.0) mmol/L Chloride 101 (98-107) mmol/L Carbon Dioxide 17 L (22-30) mmol/L Anion Gap 15 H (4-12) mmol/L BUN 14 (7-17) mg/dL Creatinine 0.50 L (0.7-1.0) mg/dL Estim Creat Clear Calc 105 ml/min Estimated GFR > 60 (59 - ) Glucose 232 H (65-110) mg/dL Calcium 9.3 (8.4-10.2) mg/dL Total Bilirubin 1.6 H (0.2-1.3) mg/dL AST 232 H (14-36) U/L ALT 345 H (6-35) U/L Alkaline Phosphatase 86 (38-126) U/L Total Protein 8.0 (6.3-8.2) g/dL Albumin 4.3 (3.5-5.1) g/dL Lipase 219 (23-300) U/L Urine Color Brown H (Yellow) Urine Appearance Turbid H (Clear) Urine pH 5.5 (5.0-9.0) Ur Specific [place] 1.036 H (1.001-1.035) Urine Protein 4+ H (Negative) mg/dL Urine Glucose (UA) Trace H (Negative) mg/dL Urine Ketones 2+ H (Negative) mg/dL Ur Blood (Man) 3+ H (Negative) Urine Nitrate Negative (Negative) Urine Bilirubin 2+ H (Negative) Urine Urobilinogen 1.0 (<2.0) mg/dL Add Ur Microanalysis Reviewed Leukocyte Esterase Rfl 1+ H (Negative) ANNABELLE/UL Urine RBC >100 H (0-2) /hpf Urine WBC 11-20 H (0-3) /hpf Ur Squamous Epith Cells Many H (Few) /hpf Urine Bacteria 3+ H /hpf Urine Casts >20 Granular Casts Present (None) /lpf Urine Mucus Present /lpf Urine Yeast (Budding) Present H (None) /hpf POC Urine HCG, Qual (Negative) 06/10/24 Range/Units 05:22 WBC (4.5-10.0) K/mm3 RBC (4.2-5.4) M/mm3 Hgb (12.0-15.0) g/dL Hct (37.0-47.0) % MCV (80-100) fl MCH (26-34) pg MCHC (32-36) g/dl RDW (11.5-14.5) % Plt Count (150-375) k/mm3 MPV (7.4-10.4) fl Immature Gran % (Auto) (0-0.5) % Neut % (Auto) (45.5-73.1) % Lymph % (Auto) (18.3-44.2) % [place] % (Auto) (2.6-8.5) % Eos % (Auto) (0-4.4) % Baso % (Auto) (0.2-1.2) % Lymph # (Auto) (0.9-3.2) K/mm3 [place] # (Auto) (0.1-0.6) K/mm3 Eos # (Auto) (0-0.3) K/mm3 Baso # (Auto) (0.0-0.1) K/mm3 Abs Immat Gran (auto) (0.00-0.031) K/mm3 Absolute Neuts (auto) (1.3-6.7) K/mm3 Absolute Nucleated RBC (0.0-0.012) K/mm3 Nucleated RBC % (0.0-0.2) % Sodium (137-145) mmol/L Potassium (3.4-5.0) mmol/L Chloride (98-107) mmol/L Carbon Dioxide (22-30) mmol/L Anion Gap (4-12) mmol/L BUN (7-17) mg/dL Creatinine (0.7-1.0) mg/dL Estim Creat Clear Calc ml/min Estimated GFR (59 - ) Glucose (65-110) mg/dL Calcium (8.4-10.2) mg/dL Total Bilirubin (0.2-1.3) mg/dL AST (14-36) U/L ALT (6-35) U/L Alkaline Phosphatase (38-126) U/L Total Protein (6.3-8.2) g/dL Albumin (3.5-5.1) g/dL Lipase (23-300) U/L Urine Color (Yellow) Urine Appearance (Clear) Urine pH (5.0-9.0) Ur Specific [place] (1.001-1.035) Urine Protein (Negative) mg/dL Urine Glucose (UA) (Negative) mg/dL Urine Ketones (Negative) mg/dL Ur Blood (Man) (Negative) Urine Nitrate (Negative) Urine Bilirubin (Negative) Urine Urobilinogen (<2.0) mg/dL Add Ur Microanalysis Leukocyte Esterase Rfl (Negative) ANNABELLE/UL Urine RBC (0-2) /hpf Urine WBC (0-3) /hpf Ur Squamous Epith Cells (Few) /hpf Urine Bacteria /hpf Urine Casts Granular Casts (None) /lpf Urine Mucus /lpf Urine Yeast (Budding) (None) /hpf POC Urine HCG, Qual Negative (Negative) <Marcelo Irving MD - Last Filed: 06/10/24 06:26> Lab Results 06/10/24 06/10/24 06/10/24 Range/Units 00:30 00:31 05:20 WBC 11.3 H (4.5-10.0) K/mm3 RBC 5.02 (4.2-5.4) M/mm3 Hgb 14.1 (12.0-15.0) g/dL Hct 42.5 (37.0-47.0) % MCV 84.7 (80-100) fl MCH 28.1 (26-34) pg MCHC 33.2 (32-36) g/dl RDW 14.0 (11.5-14.5) % Plt Count 402 H (150-375) k/mm3 MPV 8.5 (7.4-10.4) fl Immature Gran % (Auto) 0.4 (0-0.5) % Neut % (Auto) 89.1 H (45.5-73.1) % Lymph % (Auto) 7.7 L (18.3-44.2) % [place] % (Auto) 2.4 L (2.6-8.5) % Eos % (Auto) 0.0 (0-4.4) % Baso % (Auto) 0.4 (0.2-1.2) % Lymph # (Auto) 0.87 L (0.9-3.2) K/mm3 [place] # (Auto) 0.3 (0.1-0.6) K/mm3 Eos # (Auto) 0.0 (0-0.3) K/mm3 Baso # (Auto) 0.0 (0.0-0.1) K/mm3 Abs Immat Gran (auto) 0.04 H (0.00-0.031) K/mm3 Absolute Neuts (auto) 10.1 H (1.3-6.7) K/mm3 Absolute Nucleated RBC 0.000 (0.0-0.012) K/mm3 Nucleated RBC % 0.0 (0.0-0.2) % Sodium 133 L (137-145) mmol/L Potassium 3.9 (3.4-5.0) mmol/L Chloride 101 (98-107) mmol/L Carbon Dioxide 17 L (22-30) mmol/L Anion Gap 15 H (4-12) mmol/L BUN 14 (7-17) mg/dL Creatinine 0.50 L (0.7-1.0) mg/dL Estim Creat Clear Calc 105 ml/min Estimated GFR > 60 (59 - ) Glucose 232 H (65-110) mg/dL Calcium 9.3 (8.4-10.2) mg/dL Total Bilirubin 1.6 H (0.2-1.3) mg/dL AST 232 H (14-36) U/L ALT 345 H (6-35) U/L Alkaline Phosphatase 86 (38-126) U/L Total Protein 8.0 (6.3-8.2) g/dL Albumin 4.3 (3.5-5.1) g/dL Lipase 219 (23-300) U/L Urine Color Brown H (Yellow) Urine Appearance Turbid H (Clear) Urine pH 5.5 (5.0-9.0) Ur Specific [place] 1.036 H (1.001-1.035) Urine Protein 4+ H (Negative) mg/dL Urine Glucose (UA) Trace H (Negative) mg/dL Urine Ketones 2+ H (Negative) mg/dL Ur Blood (Man) 3+ H (Negative) Urine Nitrate Negative (Negative) Urine Bilirubin 2+ H (Negative) Urine Urobilinogen 1.0 (<2.0) mg/dL Add Ur Microanalysis Reviewed Leukocyte Esterase Rfl 1+ H (Negative) ANNABELLE/UL Urine RBC >100 H (0-2) /hpf Urine WBC 11-20 H (0-3) /hpf Ur Squamous Epith Cells Many H (Few) /hpf Urine Bacteria 3+ H /hpf Urine Casts >20 Granular Casts Present (None) /lpf Urine Mucus Present /lpf Urine Yeast (Budding) Present H (None) /hpf POC Urine HCG, Qual (Negative) 06/10/24 Range/Units 05:22 WBC (4.5-10.0) K/mm3 RBC (4.2-5.4) M/mm3 Hgb (12.0-15.0) g/dL Hct (37.0-47.0) % MCV (80-100) fl MCH (26-34) pg MCHC (32-36) g/dl RDW (11.5-14.5) % Plt Count (150-375) k/mm3 MPV (7.4-10.4) fl Immature Gran % (Auto) (0-0.5) % Neut % (Auto) (45.5-73.1) % Lymph % (Auto) (18.3-44.2) % [place] % (Auto) (2.6-8.5) % Eos % (Auto) (0-4.4) % Baso % (Auto) (0.2-1.2) % Lymph # (Auto) (0.9-3.2) K/mm3 [place] # (Auto) (0.1-0.6) K/mm3 Eos # (Auto) (0-0.3) K/mm3 Baso # (Auto) (0.0-0.1) K/mm3 Abs Immat Gran (auto) (0.00-0.031) K/mm3 Absolute Neuts (auto) (1.3-6.7) K/mm3 Absolute Nucleated RBC (0.0-0.012) K/mm3 Nucleated RBC % (0.0-0.2) % Sodium (137-145) mmol/L Potassium (3.4-5.0) mmol/L Chloride (98-107) mmol/L Carbon Dioxide (22-30) mmol/L Anion Gap (4-12) mmol/L BUN (7-17) mg/dL Creatinine (0.7-1.0) mg/dL Estim Creat Clear Calc ml/min Estimated GFR (59 - ) Glucose (65-110) mg/dL Calcium (8.4-10.2) mg/dL Total Bilirubin (0.2-1.3) mg/dL AST (14-36) U/L ALT (6-35) U/L Alkaline Phosphatase (38-126) U/L Total Protein (6.3-8.2) g/dL Albumin (3.5-5.1) g/dL Lipase (23-300) U/L Urine Color (Yellow) Urine Appearance (Clear) Urine pH (5.0-9.0) Ur Specific [place] (1.001-1.035) Urine Protein (Negative) mg/dL Urine Glucose (UA) (Negative) mg/dL Urine Ketones (Negative) mg/dL Ur Blood (Man) (Negative) Urine Nitrate (Negative) Urine Bilirubin (Negative) Urine Urobilinogen (<2.0) mg/dL Add Ur Microanalysis Leukocyte Esterase Rfl (Negative) ANNABELLE/UL Urine RBC (0-2) /hpf Urine WBC (0-3) /hpf Ur Squamous Epith Cells (Few) /hpf Urine Bacteria /hpf Urine Casts Granular Casts (None) /lpf Urine Mucus /lpf Urine Yeast (Budding) (None) /hpf POC Urine HCG, Qual Negative (Negative) <Jimenez Banks MD - Last Filed: 06/10/24 09:29> Imaging Data Radiologist's impression: ITS Impressions Abdomen/Pelvis CT 06/10/24 06:55 Impression: Suspected acute appendicitis with right lower quadrant inflammatory change. No abscess or free air. Other inflammatory bowel disease/enteritis would be a potential alternative consideration with reactive dilatation of the appendix. Correlate clinically. <Jimenez Banks MD - Last Filed: 06/10/24 09:29> Discharge Plan Discharge Clinical Impression: Acute appendicitis, Elevated LFTs <Marcelo Irving MD - Last Filed: 06/10/24 06:26> Patient Disposition: Still a Patient <Marcelo Irving MD - Last Filed: 06/10/24 06:26> Condition: Stable <Marcelo Irving MD - Last Filed: 06/10/24 06:26> Instructions: Antibiotic Form <Marcelo Irving MD - Last Filed: 06/10/24 06:26> Prescriptions: No Action vitamin B complex Tablet 1 tablet PO DAILY cholecalciferol (vitamin D3) 125 mcg (5,000 unit) capsule 250 mcg PO DAILY Digestive Advantage Prob Gummy 250 million cell tablet,chewable 1 cell PO DAILY ezetimibe [Zetia] 10 mg tablet 10 mg PO DAILY Qty: 90 3RF colestipol 1 gram tablet 1 g PO BID Qty: 180 1RF levothyroxine [Tirosint] 50 mcg capsule 50 mcg PO DAILY Qty: 90 2RF <Marcelo Irving MD - Last Filed: 06/10/24 06:26> Follow-up/Referrals: Isra Burns MD [Primary Care Provider] - <Marcelo Irving MD - Last Filed: 06/10/24 06:26> Time of Disposition: 09:29 <Marcelo Irving MD - Last Filed: 06/10/24 06:26> 09:29 <Jimenez Banks MD - Last Filed: 06/10/24 09:29>
[2024-06-10] MEDS: MORPHINE SULFATE (*CRX) 4 MG/ML INJ IV PUSH (06:29)
[2024-06-10] MEDS: ONDANSETRON INJ 4 MG/2 ML VIAL IV PUSH (06:29)
[2024-06-10] MEDS: SODIUM CHLORIDE 0.9% IV 1,000 ML 999 ML IV CONT (06:29)
[2024-06-10] MEDS: PIPERACILLN/TAZ 3.375GM/NS50ML 3.375 GM/50 ML BAG IVPB ×2 (09:40→16:08)
[2024-06-10] MEDS: SODIUM CHLORIDE 0.9% IV 1,000 ML 125 ML IV CONT (10:31)
--- NOTE | 2024-06-10 11:55 | P.HP_ITS ---
H&P: HPI History of Present Illness Date/Time: 06/10/24 11:55 Chief Complaint: Lower abdominal pain Narrative: This is a 54-year-old woman who presented to the ED today with complaints of lower abdominal pain. She reports waking up from sleep 2 nights ago around midnight with cramping lower abdominal pain. At first her pain was mild and she compares it to menstrual cramps. She then developed nausea and vomiting. She vomited multiple times through the night. Yesterday, her abdominal pain began to localize to the right lower quadrant. She was unable to eat anything all day due to poor appetite and nausea. Her abdominal pain was aggravated by any movement, bending, or walking. She went to an urgent care around 8:00 a.m. yesterday morning. They did an abdominal x-ray and she was reportedly told she was constipated. They recommended she go to the ED if her pain did not improve. Since her symptoms persisted, she came into the ED last night for further evaluation. Workup in the ED showed mild leukocytosis and CT evidence of acute appendicitis. Labs also showed elevated LFTs with total bilirubin 1.6, AST 232, and ALT 345. She has been following GI as an outpatient with extensive workup for elevated LFTs. She was previously on statins, which she reports led to a myopathy and were discontinued. Her outpatient workup has been negative for chronic liver disease. She reports recently having recurrent symptoms of generalized weakness and is scheduled to see Neurology in August. In the ED, her urine was grossly abnormal. Urine cx pending. She reports voiding without any difficulties and has not noticed any discolored urine up until this morning in the ED. She reports her urine has been clear and yellow, but she did noticed dark cloudy urine when she gave her urine specimen today. She denies dysuria, hematuria, urinary frequency, vaginal discharge or itching, or any other complaints. Our service was called for further evaluation of acute appendicitis. She is hemodynamically stable in the ED. She appears comfortable and is now seen with no family at the bedside. She is still complaining of lower abdominal pain that is worse in the right lower quadrant. Denies ever thompson ving this pain in the past. No previous abdominal surgeries. Review of Systems Review of Systems: All systems reviewed & are unremarkable except as noted in HPI and below PMFSH Past Medical History Medical History Anxiety CIDP (chronic inflammatory demyelinating polyneuropathy) Dyslipidemia Elevated liver enzymes Hypothyroid Internal hemorrhoids Irritable bowel syndrome with constipation Left wrist fracture (~10/27/02) Myalgia Myopathy Prediabetes Proximal muscle weakness Vaginal delivery Vitamin D deficiency Surgical History Surgical History History of arthroscopy of knee (~1984) History of elbow surgery (~2013) History of eye surgery (~1971) History of open reduction and internal fixation (ORIF) procedure (~10/27/02) wrist History of strabismus surgery Family History Family History Father Family history of hypercholesterolemia Other Family history of cardiovascular disease Social History Social History Smoking status: Never smoker Second hand tobacco smoke exposure: No Alcohol intake: current Alcohol use details: socially Substance use: never Substance use type: does not use Do You Feel Safe in your Home?: Yes Lack of Transportation: No Lack of Food: Never True Current Housing: I Have Housing Concerned About Future Housing: No Difficulty Paying Gas/Electric Bills: No Difficulty Paying for Meds: No Currently Unemployed: No Education: Trade/Vocational Certificate Difficulty w/ Childcare or Family Care: No Living arrangements: with family Occupation/Education: occupation Gender identity (if verbalized by the patient): Female Sexual Orientation (if Verbalized by the Patient): Straight or Heterosexual Agree to blood products: Yes Meds Home Medications and Allergies Home Medications Medication Instructions Recorded Confirmed Type cholecalciferol (vitamin D3) 125 250 mcg PO DAILY 04/26/23 05/08/24 History mcg (5,000 unit) capsule vitamin B complex 1 tablet PO DAILY 04/26/23 05/08/24 History colestipol 1 gram tablet 1 g PO BID #180 tabs 12/17/23 05/08/24 Rx Bacillus coagulans 250 million 1 cell PO DAILY 03/20/24 05/08/24 History cell chewable tablet (Digestive Advantage Probiotic Gummy) ezetimibe 10 mg tablet (Zetia) 10 mg PO DAILY #90 tabs 03/20/24 05/08/24 Rx Tirosint 50 mcg capsule 50 mcg PO DAILY #90 caps 05/19/24 Rx (levothyroxine) Allergies Allergy/AdvReac Type Severity Reaction Status Date / Time Ejhwlue-MYI-YqP Reductase AdvReac Unknown myopathy Verified 06/09/24 08:46 Inhibitor [Aooltdc-Rxg-Fql Reductase Inhibitor] Vital Signs Vital Signs - 24 hr 06/10/24 00:15 06/10/24 05:21 06/10/24 06:12 Temperature 97.9 F Pulse Rate 100 96 81 Respiratory Rate 21 H 20 16 Blood Pressure 154/61 H 130/57 L 118/60 Pulse Oximetry 98 100 100 Oxygen Delivery Room Air 06/10/24 07:14 06/10/24 07:59 06/10/24 09:43 Temperature Pulse Rate 96 95 97 Respiratory Rate 18 24 H 15 Blood Pressure 137/67 137/64 128/62 Pulse Oximetry 95 95 96 Oxygen Delivery 06/10/24 10:32 06/10/24 11:00 Temperature 98.1 F Pulse Rate 87 90 Respiratory Rate 25 H 20 Blood Pressure 127/58 L 127/58 L Pulse Oximetry 97 97 Oxygen Delivery Exam Const: General: comfortable and no acute distress Nutritional Appearance: average body habitus Orientation/consciousness: patient oriented x3 HENMT: Head: normocephalic and atraumatic Ears: hearing grossly normal trent aterally Mouth: Yes moist mucous membranes Eyes: General: appearance normal, both eyes and all related structures Pupils: Equal, round and reactive pupils present Neck: Neck: normal visual inspection and full ROM Resp: Effort & Inspection: no respiratory distress Auscultation: clear to auscultation bilaterally Cardio: Rate: regular rate Rhythm: regular rhythm Heart sounds: S1 normal heart sound present and S2 normal heart sound present Peripheral pulses: Peripheral pulses 2+ throughout GI: Inspection: non-distended, no scars and no visible herniation GI Palp: Yes Soft to palpation, Yes Tenderness to palpation present (GI) (lower abdominal tenderness with focal tenderness in the RLQ with guarding), Yes Guarding due to palpation present (GI) (RLQ), Yes No hepatosplenomegaly present and No Rebound tenderness present Percussion: Yes normal to percussion Auscultation: normal bowel sounds Skin: General skin exam: normal color Neuro: General: moves all extremities and no focal motor deficits Speech: normal speech Motor exam (neuro): 5/5 motor strength present throughout Extrem: General: normal to inspection and no edema Psych: Mental Status: mental status grossly normal Attitude: cooperative Insight: Good insight present (Psych) Judgement: Good judgement present (Psych) H&P: Results Labs Labs: Short CBC 06/10/24 Range/Units 00:30 WBC 11.3 H (4.5-10.0) K/mm3 Hgb 14.1 (12.0-15.0) g/dL Hct 42.5 (37.0-47.0) % Plt Count 402 H (150-375) k/mm3 BMP 06/10/24 00:31 Sodium 133 L Potassium 3.9 Chloride 101 Carbon Dioxide 17 L BUN 14 Creatinine 0.50 L Glucose 232 H Calcium 9.3 Liver Function 06/10/24 Range/Units 00:31 Total Bilirubin 1.6 H (0.2-1.3) mg/dL AST 232 H (14-36) U/L ALT 345 H (6-35) U/L Alkaline Phosphatase 86 (38-126) U/L Albumin 4.3 (3.5-5.1) g/dL Urine 06/10/24 Range/Units 05:20 Urine Color Brown H (Yellow) Urine Appearance Turbid H (Clear) Urine pH 5.5 (5.0-9.0) Ur Specific [place] 1.036 H (1.001-1.035) Urine Protein 4+ H (Negative) mg/dL Urine Glucose (UA) Trace H (Negative) mg/dL Imaging CT scan - abdomen: Radiologist's impression: ITS Impressions Abdomen/Pelvis CT 06/10/24 06:55 Impression: Suspected acute appendicitis with right lower quadrant inflammatory change. No abscess or free air. Other inflammatory bowel disease/enteritis would be a potential alternative consideration with reactive dilatation of the appendix. Correlate clinically. Assessment and Plan Assessment and plan (1) Acute appendicitis: Qualifiers: Acute appendicitis type: with localized peritonitis Appendicitis abscess presence: without abscess Appendicitis gangrene presence: without gangrene Appendicitis perforation presence: without perforation Qualified Code(s): K35.30 - Acute appendicitis with localized peritonitis, without perforation or gangrene Code(s): K35.80 - Unspecified acute appendicitis Status: Acute Assessment and Plan: CT scan showed a dilated appendix with surrounding inflammatory changes, consistent with acute appendicitis. Her clinical presentation and exam correlate with these findings. We discussed both nonoperative treatment with IV antibiotics/monitoring versus proceeding with surgery. We discussed the details of a laparoscopic appendectomy, possible open, under general anesthesia that would be done by Dr. Lee. Description of the procedure, risks, benefits, alternatives, and expected recovery were discussed. She wishes to proceed with surgery. Will keep her NPO and continue IV antibiotics, IV fluids, and analgesics as needed pre-operatively. She has been added to the surgery schedule for today. (2) Elevated LFTs: Code(s): R79.89 - Other specified abnormal findings of blood chemistry Status: Acute Assessment and Plan: AST and ALT have been chronically elevated around 200-300 in the past. She has been following GI and had extensive outpatient workup that has been negative for any chronic liver conditions. Her total bilirubin is also slightly up to 1.6. CT abdomen and pelvis showed no abnormalities of the gallbladder or liver. Discussed labs with the patient and recommended f/u outpatient with GI as scheduled. (3) Abnormal urinalysis: Code(s): R82.90 - Unspecified abnormal findings in urine Status: Acute Assessment and Plan: UA is grossly abnormal in the ER. She denies any urinary symptoms. She has been voiding normally and noticed dark cloudy urine for the first time in the ER today. Denies any vaginal discharge or symptoms. She has had intermittent abnormal vaginal bleeding about 5 times in the past year, which she is following with Gynecology (with a scheduled f/u next week). Urine cx pending. She is currently on IV Zosyn preoperatively and could consider discharging her on oral antibiotics with PCP f/u. (4) Prediabetes: Code(s): R73.03 - Prediabetes Status: Acute (5) CIDP (chronic inflammatory demyelinating polyneuropathy): Code(s): G61.81 - Chronic inflammatory demyelinating polyneuritis Status: Acute Assessment and Plan: Previously treated for statin myopathy and was evaluated by Neurology. Her symptoms resolved, but returned recently with generalized weakness of her extremities. She is scheduled to be evaluated by a new Neurologist for a second opinion in August. (6) Irritable bowel syndrome with constipation: Code(s): K58.1 - Irritable bowel syndrome with constipation Status: Acute Plan I have discussed the patient's case and plan of care with Dr. Lee.
--- NOTE | 2024-06-10 13:11 | WPDHPUPDATE1 ---
History and Physical Update Update Date/Time: 06/10/24 13:11 History and Physical has been reviewed, including an updated exam of the patient. There are NO changes in the patient's condition. Risks, benefits, and alternatives have been discussed and questions answered. Patient agrees to proceed with procedure.
--- NOTE | 2024-06-10 13:42 | P.PNAN_ITS ---
Anes - Initial Pre Proc Eval Procedure: Operation Date: 06/10/24 15:00 Proposed Procedures p Laparoscopic Appendectomy, Possible Open - Wang Lee DO Date/Time: 06/10/24 13:42 Surgeon: Wang Lee DO Pre Op Diagnosis: Acute Appendicitis Patient Data Age: 54 Gender: F Height: 1.63 m Weight: 73.63 kg Last Vital Signs Temp 37.5 C 06/10/24 12:24 Pulse 90 06/10/24 12:24 Resp 20 06/10/24 11:00 BP 141/56 H 06/10/24 12:24 Pulse Ox 94 06/10/24 12:24 O2 Del Method Room Air 06/10/24 12:24 Allergies Allergy/AdvReac Type Severity Reaction Status Date / Time Ammpswn-UBL-UcE Reductase AdvReac Unknown myopathy Verified 06/09/24 08:46 Inhibitor [Jbpgemg-Tkb-Jyk Reductase Inhibitor] Home Medications Medication Instructions Recorded Confirmed Type cholecalciferol (vitamin D3) 125 250 mcg PO DAILY 04/26/23 05/08/24 History mcg (5,000 unit) capsule vitamin B complex 1 tablet PO DAILY 04/26/23 05/08/24 History colestipol 1 gram tablet 1 g PO BID #180 tabs 12/17/23 05/08/24 Rx Bacillus coagulans 250 million 1 cell PO DAILY 03/20/24 05/08/24 History cell chewable tablet (Digestive Advantage Probiotic Gummy) ezetimibe 10 mg tablet (Zetia) 10 mg PO DAILY #90 tabs 03/20/24 05/08/24 Rx Tirosint 50 mcg capsule 50 mcg PO DAILY #90 caps 05/19/24 Rx (levothyroxine) Laboratory Tests 06/10/24 06/10/24 06/10/24 00:30 00:31 05:20 WBC 11.3 H K/mm3 (4.5-10.0) RBC 5.02 M/mm3 (4.2-5.4) Hgb 14.1 g/dL (12.0-15.0) Hct 42.5 % (37.0-47.0) MCV 84.7 fl (80-100) MCH 28.1 pg (26-34) MCHC 33.2 g/dl (32-36) RDW 14.0 % (11.5-14.5) Plt Count 402 H k/mm3 (150-375) MPV 8.5 fl (7.4-10.4) Immature Gran % (Auto) 0.4 % (0-0.5) Neut % (Auto) 89.1 H % (45.5-73.1) Lymph % (Auto) 7.7 L % (18.3-44.2) [place] % (Auto) 2.4 L % (2.6-8.5) Eos % (Auto) 0.0 % (0-4.4) Baso % (Auto) 0.4 % (0.2-1.2) Lymph # (Auto) 0.87 L K/mm3 (0.9-3.2) [place] # (Auto) 0.3 K/mm3 (0.1-0.6) Eos # (Auto) 0.0 K/mm3 (0-0.3) Baso # (Auto) 0.0 K/mm3 (0.0-0.1) Abs Immat Gran (auto) 0.04 H K/mm3 (0.00-0.031) Absolute Neuts (auto) 10.1 H K/mm3 (1.3-6.7) Absolute Nucleated RBC 0.000 K/mm3 (0.0-0.012) Nucleated RBC % 0.0 % (0.0-0.2) Sodium 133 L mmol/L (137-145) Potassium 3.9 mmol/L (3.4-5.0) Chloride 101 mmol/L (98-107) Carbon Dioxide 17 L mmol/L (22-30) Anion Gap 15 H mmol/L (4-12) BUN 14 mg/dL (7-17) Creatinine 0.50 L mg/dL (0.7-1.0) Estim Creat Clear Calc 105 ml/min Estimated GFR > 60 (59 - ) Glucose 232 H mg/dL (65-110) Calcium 9.3 mg/dL (8.4-10.2) Total Bilirubin 1.6 H mg/dL (0.2-1.3) AST 232 H U/L (14-36) ALT 345 H U/L (6-35) Alkaline Phosphatase 86 U/L (38-126) Total Protein 8.0 g/dL (6.3-8.2) Albumin 4.3 g/dL (3.5-5.1) Lipase 219 U/L (23-300) Urine Color Brown H (Yellow) Urine Appearance Turbid H (Clear) Urine pH 5.5 (5.0-9.0) Ur Specific [place] 1.036 H (1.001-1.035) Urine Protein 4+ H mg/dL (Negative) Urine Glucose (UA) Trace H mg/dL (Negative) Urine Ketones 2+ H mg/dL (Negative) Ur Blood (Man) 3+ H (Negative) Urine Nitrate Negative (Negative) Urine Bilirubin 2+ H (Negative) Urine Urobilinogen 1.0 mg/dL (<2.0) Add Ur Microanalysis Reviewed Leukocyte Esterase Rfl 1+ H ANNABELLE/UL (Negative) Urine RBC >100 H /hpf (0-2) Urine WBC 11-20 H /hpf (0-3) Ur Squamous Epith Cells Many H /hpf (Few) Urine Bacteria 3+ H /hpf Urine Casts >20 Granular Casts Present /lpf (None) Urine Mucus Present /lpf Urine Yeast (Budding) Present H /hpf (None) POC Urine HCG, Qual 06/10/24 05:22 WBC RBC Hgb Hct MCV MCH MCHC RDW Plt Count MPV Immature Gran % (Auto) Neut % (Auto) Lymph % (Auto) [place] % (Auto) Eos % (Auto) Baso % (Auto) Lymph # (Auto) [place] # (Auto) Eos # (Auto) Baso # (Auto) Abs Immat Gran (auto) Absolute Neuts (auto) Absolute Nucleated RBC Nucleated RBC % Sodium Potassium Chloride Carbon Dioxide Anion Gap BUN Creatinine Estim Creat Clear Calc Estimated GFR Glucose Calcium Total Bilirubin AST ALT Alkaline Phosphatase Total Protein Albumin Lipase Urine Color Urine Appearance Urine pH Ur Specific [place] Urine Protein Urine Glucose (UA) Urine Ketones Ur Blood (Man) Urine Nitrate Urine Bilirubin Urine Urobilinogen Add Ur Microanalysis Leukocyte Esterase Rfl Urine RBC Urine WBC Ur Squamous Epith Cells Urine Bacteria Urine Casts Granular Casts Urine Mucus Urine Yeast (Budding) POC Urine HCG, Qual Negative (Negative) Patient hx anesthesia problems: none Family hx anesthesia problems: none Results Review: All pre-operative results and documents have been reviewed as part of the pre- operative evaluation. [facility] [place] Past Medical History Medical History Anxiety CIDP (chronic inflammatory demyelinating polyneuropathy) Dyslipidemia Elevated liver enzymes Hypothyroid Internal hemorrhoids Irritable bowel syndrome with constipation Left wrist fracture (~10/27/02) Myalgia Myopathy Prediabetes Proximal muscle weakness Vaginal delivery Vitamin D deficiency Surgical History Surgical History History of arthroscopy of knee (~1984) History of elbow surgery (~2013) History of eye surgery (~1971) History of open reduction and internal fixation (ORIF) procedure (~10/27/02) wrist History of strabismus surgery Family History Family History Father Family history of hypercholesterolemia Other Family history of cardiovascular disease Social History Social History Smoking status: Never smoker Second hand tobacco smoke exposure: No Alcohol intake: current Alcohol use details: socially Substance use: never Substance use type: does not use Do You Feel Safe in your Home?: Yes Lack of Transportation: No Lack of Food: Never True Current Housing: I Have Housing Concerned About Future Housing: No Difficulty Paying Gas/Electric Bills: No Difficulty Paying for Meds: No Currently Unemployed: No Education: Trade/Vocational Certificate Difficulty w/ Childcare or Family Care: No Living arrangements: with family Occupation/Education: occupation Gender identity (if verbalized by the patient): Female Sexual Orientation (if Verbalized by the Patient): Straight or Heterosexual Agree to blood products: Yes Anes - Eval Final PreProcedure Day of Procedure 06/10/24 13:42 Patient weight: overweight Heart: regular rate and rhythm Lungs: clear to auscultation Airway: Mallampati scale class II Neurological: alert and oriented Last oral intake: >/= 8 hours ASA classification: II Emergent: no Anesthetic plan: proceed Anesthesia type and monitoring: general ETT and standard monitoring Results Review: All pre-operative results and documents have been reviewed as part of the pre- operative evaluation. Informed Consent: The patient's anesthetic plan and its attendant risks and benefits were discussed with the patient/family/POA. Questions were solicited and answers provided to the satisfaction of the patient/family/POA.
[2024-06-10] MEDS: LACTATED RINGERS 1,000 ML 30 ML IV CONT ×2 (13:51→15:43)
[2024-06-10] MEDS: BUPIVACAINE/EPINEPHRINE 0.5% 50 ML VIAL 30 ML INFILTRATE (15:02)
[2024-06-10] MEDS: KETOROLAC 30 MG/ML VIAL (*BKC) IV PUSH (15:12)
--- NOTE | 2024-06-10 16:10 | W.PM.PROC2 ---
Procedure Note - Detailed Date of Procedure 06/10/24 Pre-op Diagnosis Acute Appendicitis Post-op Diagnosis Same (Acute perforated appendicitis with generalized peritonitis) Procedure Performed Laparoscopic appendectomy Surgeon Wang Lee, DO Anesthesia General and Local (0.5% bupivicaine with epinephrine) Indications This is a 54-year-old woman who presented to the emergency department today complaining of right lower quadrant abdominal pain. Her symptoms started about 2 days ago and continued to worsen. She was also experiencing nausea and vomiting. In the emergency department she was noted to have an elevated white blood count and CT showed evidence of acute appendicitis. Discussions were made with the patient about treatment options and decision was made to proceed with laparoscopic appendectomy, possible open. Findings Laparoscopic appendectomy was performed. The abdomen was inspected as soon as a laparoscopic port was placed and there did appear to be signs of purulence fluid throughout the abdomen. There appeared to be some reactive hyperemia of some of the loops of small bowel as well as at the cecum. The appendix appeared inflamed and perforated near the base. I was able to identify healthy appearing appendix just beyond the perforation to allow for the stapler to be advanced. The appendix was removed and sent to the lab for pathology. There appeared to be more purulence fluid down in the pelvis. The abdomen and pelvis was irrigated with about 2 L of sterile saline. No other significant abnormalities were noted. Description of Procedure Procedure as well as risks, benefits, and alternatives were explained to the patient. The patient agreed to proceed. Written consent was obtained and placed in chart prior to procedure. The patient was brought back to surgical suite. She was placed supine on operating table. Time-out was done to confirm the patient and procedure. The patient was then intubated by the Anesthesia Department. Her abdomen was prepped and draped in sterile fashion using chlorhexidine prep. A 5 mm incision was made just to the left of the patient's umbilicus and a 5 mm Optiview trocar was advanced through the abdominal layers under direct visualization. Once inside the peritoneal cavity, carbon dioxide insufflation was used to create a pneumoperitoneum. The camera was inserted and the abdomen was inspected. No immediate abnormalities were identified. The patient was then placed in slight Trendelenburg position and rotated to the left. A 5 mm incision was made in the suprapubic region in midline and a 5 mm trocar was inserted under direct visualization. A 12 mm incision was made in the left lower quadrant and a 12 mm trocar was inserted under direct visualization. The right lower quadrant was carefully inspected. The cecum was identified and then this was traced back to the appendix. The appendix was identified and grasped at the mesoappendix and lifted anteriorly. Careful blunt dissection was carried out at the base of the appendix through the mesoappendix using a [place] grasper. An Endo-ILYA 45 mm blue load stapler was then advanced across the base of the appendix and clamped and fired. A white reload was then clamped across the mesoappendix and fired. This freed up our appendix completely. It was then placed in an EndoCatch bag and removed through the left lower quadrant port. The staple lines were then inspected. Hemostasis appeared adequate and the staple lines appeared secure. The area was then irrigated with sterile saline. The pelvis was then carefully inspected and irrigated with sterile saline as well and the remainder of the abdomen was carefully inspected. The patient was then flattened out in bed. One final inspection was made around the abdominal cavity and no other abnormalities were seen. The left lower quadrant port was removed and a Saman-Zaira cone was used to approximate the fascia with an 0 Vicryl simple interrupted suture. The remaining ports were then removed under direct visualization. The camera was removed and the pneumoperitoneum was released. 0.5% bupivacaine with epinephrine was infiltrated locally around each of the incisions. The skin of the incisions was then approximated using 4-0 Monocryl subcuticular suture and Exofin glue was applied on top. The patient was then awakened from anesthesia, extubated, and transferred to Recovery. Estimated Blood Loss 10 Urine Output 300 Pathology Yes (Appendix) Complications No immediate complications Condition Stable Disposition Floor [facility] Billing Surgery - Charge Forward: Surgery Billing
--- NOTE | 2024-06-10 17:36 | ADMGEN ---
This patient, Edwige Bryan, was admitted to 2 Medical Room 259-. Patient/family oriented to hospital policies and general routines including ID bracelet, bed and alarms, visiting hours, pain management, procedures, bathroom and other care routines, personal items, smoking policy, room service/diet, and visiting hours. Information on how to activate the Rapid Response Team has been discussed. Patient/Family are encouraged to report perceived risks to care and to ask questions if they do not understand what they are told or what they should do.
[2024-06-10] MEDS: LACTATED RINGERS 1,000 ML 100 ML IV CONT (17:45)
[2024-06-11] VITALS (8 sets, daily range): BP systolic 132–155; BP diastolic 55–83; PULSE 65–91; RESP 16–20; TEMP 36.2–36.8; O2SAT 95–99
[2024-06-11 06:22] LABS: Basophils Percent Auto 0.2 % (0.2-1.2); Hematocrit 37.4 % (37.0-47.0); Hemoglobin 11.7 g/dL (12.0-15.0); Immature Granulocyte Absolute 0.05 K/mm3 (0.00-0.031); Immature Granulocyte Percent A 0.4 % (0-0.5); Lymphocytes Absolute Auto 1.21 K/mm3 (0.9-3.2); Lymphocytes Percent Auto 9.3 % (18.3-44.2); Mean Corpuscular HGB Conc 31.3 g/dl (32-36); Mean Corpuscular Hemoglobin 28.1 pg (26-34); Mean Corpuscular Volume 89.9 fl (80-100); Mean Platelet Volume 9.1 fl (7.4-10.4); Monocytes Absolute Auto 0.4 K/mm3 (0.1-0.6); Monocytes Percent Auto 3.4 % (2.6-8.5); Neutrophils Absolute Auto 11.3 K/mm3 (1.3-6.7); Neutrophils Percent Auto 86.7 % (45.5-73.1); Platelet Count Result 354 k/mm3 (150-375); Red Blood Count 4.16 M/mm3 (4.2-5.4); Red Cell Distribution Width 14.6 % (11.5-14.5)
[2024-06-11 06:40] LABS: Alanine Aminotransferase 263 U/L (6-35); Albumin Level 3.5 g/dL (3.5-5.1); Alkaline Phosphatase 74 U/L (38-126); Anion Gap 6 mmol/L (4-12); Aspartate Amino Transferase 120 U/L (14-36); Bilirubin,Total 0.8 mg/dL (0.2-1.3); Blood Urea Nitrogen 18 mg/dL (7-17); Carbon Dioxide 27 mmol/L (22-30); Chloride 103 mmol/L (98-107); Estimated CRCL calculation 90 ml/min; Estimated Glomerular Filt Rate > 60; Glucose 111 mg/dL (65-110); Potassium 3.7 mmol/L (3.4-5.0); Sodium 136 mmol/L (137-145)
[2024-06-11] MEDS: ENOXAPARIN 40 MG/0.4 ML SYRINGE SUB-Q (08:10)
[2024-06-11] MEDS: HYDROcodone/acetaminophen (*CRX) 5-325 MG TABLET 1 TAB PO ×2 (08:13→18:26)
--- NOTE | 2024-06-11 08:59 | PM.PNGS ---
Progress Note: A&P Assessment and Plan (1) Acute appendicitis: Qualifiers: Acute appendicitis type: with generalized peritonitis Appendicitis abscess presence: without abscess Appendicitis gangrene presence: without gangrene Appendicitis perforation presence: with perforation Qualified Code(s): K35.201 - Acute appendicitis with generalized peritonitis, with perforation, without abscess Code(s): K35.80 - Unspecified acute appendicitis Status: Acute Plan Continue Zosyn Will resume IV fluids as patient might be developing ileus Continue clear liquids today Subjective Subjective Date/Time Seen: 06/11/24 08:59 Interval history: Nauseated and bloated with clear liquids. No vomiting. +Flatus and small liquid BM. Pain controlled. No fevers. Exam GI: Inspection: distended and incision (intact with glue) GI Palp: Yes Soft to palpation, Yes Tenderness to palpation present (GI) (mild) and No Guarding due to palpation present (GI) Auscultation: Hypoactive bowel sounds present Objective Data Vital Signs Vital Signs: Vital Signs - 24 hr 06/10/24 09:43 06/10/24 10:32 06/10/24 11:00 Temperature 98.1 F Pulse Rate 97 87 90 Respiratory Rate 15 25 H 20 Blood Pressure 128/62 127/58 L 127/58 L Pulse Oximetry 96 97 97 Oxygen Delivery Oxygen Flow Rate 06/10/24 12:24 06/10/24 15:37 06/10/24 15:50 Temperature 99.5 F 97.6 F Pulse Rate 90 103 H 90 Respiratory Rate 20 20 Blood Pressure 141/56 H 125/65 149/59 H Pulse Oximetry 94 97 99 Oxygen Delivery Room Air Simple Face Mask Simple Face Mask Oxygen Flow Rate 8 8 06/10/24 16:05 06/10/24 16:20 06/10/24 16:35 Temperature Pulse Rate 93 88 83 Respiratory Rate 22 H 13 17 Blood Pressure 145/61 H 139/61 138/65 Pulse Oximetry 94 95 95 Oxygen Delivery Room Air Nasal Cannula Nasal Cannula Oxygen Flow Rate 2 2 06/10/24 17:00 06/10/24 17:15 06/10/24 17:45 Temperature 97.6 F 97.6 F 97.6 F Pulse Rate 75 74 72 Respiratory Rate 16 17 17 Blood Pressure 134/59 L 132/62 145/59 H Pulse Oximetry 100 100 100 Oxygen Delivery Oxygen Flow Rate 06/10/24 18:31 06/10/24 20:48 06/10/24 20:30 Temperature 97.6 F 97.5 F L Pulse Rate 75 77 77 Respiratory Rate 17 16 16 Blood Pressure 132/59 L 129/64 Pulse Oximetry 92 95 95 Oxygen Delivery Room Air Oxygen Flow Rate 06/11/24 02:31 06/11/24 04:30 Temperature 97.6 F 98.0 F Pulse Rate 65 78 Respiratory Rate 16 16 Blood Pressure 138/62 132/55 L Pulse Oximetry 97 99 Oxygen Delivery Oxygen Flow Rate Intake/Output Intake/Output: Intake & Output 06/08/24 06/09/24 06/10/24 06/11/24 23:59 23:59 23:59 23:59 Intake Total 1450 400 Output Total 300 Balance 1150 400 Meds/Results Medications: Active Medications Generic Name Dose Route Start Last Admin Trade Name Freq PRN Reason Stop Dose Admin Hydrocodone Bitart/Acetaminophen 1 tab 06/10/24 16:46 06/11/24 08:13 Hydrocodone/Acetaminophen (*Crx) 5-325 Mg Tablet PO 1 tab Q4H PRN Administration Pain Rated 4-6 Hydrocodone Bitart/Acetaminophen 1 tab 06/10/24 16:46 Hydrocodone/Acetaminophen (*Crx) 7.5-325 Mg Tablet PO Q4H PRN Pain Rated 7-10 Diphenhydramine HCl 25 mg 06/10/24 16:46 Diphenhydramine Hcl Inj 50 Mg/Ml Vial IV PUSH Q6H PRN Itching Enoxaparin Sodium 40 mg 06/11/24 09:00 06/11/24 08:10 Enoxaparin 40 Mg/0.4 Ml Syringe SUB-Q 40 mg DAILY AMANDA Administration Hydromorphone HCl 1 mg 06/10/24 16:46 Hydromorphone Hcl Inj (*Crx) 1 Mg/Ml Syr IV PUSH Q2H PRN Breakthrough Pain Rated 7-10 or NPO Hydromorphone HCl 0.5 mg 06/10/24 16:46 Hydromorphone Hcl Inj (*Crx) 1 Mg/Ml Syr IV PUSH Q2H PRN Breakthrough Pain Rated 4-6 or NPO Ibuprofen 800 mg in 200 mls @ 400 mls/hr 06/10/24 16:46 Caldolor 800 Mg/200 Ml IVPB Q6H PRN Breakthrough Pain Rated 1-3 or NPO Lactated Ringer's 1,000 mls @ 100 mls/hr 06/11/24 09:00 Lr - Lactated Ringers Iv IV CONT .Q10H AMANDA Piperacillin/Tazobactam/Dextrose 3.375 gm in 50 mls @ 100 mls/hr 06/11/24 09:00 Zosyn 3.375 Gm/Ns 50 Ml IVPB Q6H AMANDA Ibuprofen 600 mg 06/10/24 16:46 Ibuprofen 600 Mg Tablet PO Q6H PRN Pain Rated 1-3 Naloxone HCl 0.1 mg 06/10/24 16:46 Naloxone Hcl 0.4 Mg/Ml Vial IV PUSH Q2M PRN Opiate Reversal Ondansetron HCl 4 mg 06/10/24 16:46 Ondansetron Inj 4 Mg/2 Ml Vial IV PUSH Q4H PRN Nausea And Vomiting Radiology Results: ITS Impressions Abdomen/Pelvis CT 06/10/24 06:55 Impression: Suspected acute appendicitis with right lower quadrant inflammatory change. No abscess or free air. Other inflammatory bowel disease/enteritis would be a potential alternative consideration with reactive dilatation of the appendix. Correlate clinically. Labs Labs: Laboratory Results - last 24 hr 06/11/24 05:35 WBC 13.0 H RBC 4.16 L Hgb 11.7 L Hct 37.4 MCV 89.9 D MCH 28.1 MCHC 31.3 L RDW 14.6 H Plt Count 354 MPV 9.1 Immature Gran % (Auto) 0.4 Neut % (Auto) 86.7 H Lymph % (Auto) 9.[address] [place] % (Auto) 3.4 Eos % (Auto) 0.0 Baso % (Auto) 0.2 Lymph # (Auto) 1.21 [place] # (Auto) 0.4 Eos # (Auto) 0.0 Baso # (Auto) 0.0 Abs Immat Gran (auto) 0.05 H Absolute Neuts (auto) 11.3 H Absolute Nucleated RBC 0.000 Nucleated RBC % 0.0 Sodium 136 L Potassium 3.7 Chloride 103 Carbon Dioxide 27 Anion Gap 6 BUN 18 H Creatinine 0.60 L Estim Creat Clear Calc 90 Estimated GFR > 60 Glucose 111 H Calcium 9.0 Total Bilirubin 0.8 Direct Bilirubin 0.0 AST 120 H ALT 263 H Alkaline Phosphatase 74 Total Protein 7.0 Albumin 3.5
[2024-06-11] MEDS: PIPERACILLN/TAZ 3.375GM/NS50ML 3.375 GM/50 ML BAG IVPB ×3 (09:11→20:22)
[2024-06-11] MEDS: LACTATED RINGERS 1,000 ML 100 ML IV CONT ×2 (09:12→21:01)
[2024-06-11] MEDS: ONDANSETRON INJ 4 MG/2 ML VIAL IV PUSH (09:52)
--- NOTE | 2024-06-11 14:23 | P.PNAN_ITS ---
Anes - Prog Note Post-Op Date/Time: 06/11/24 14:23 Cardiovascular status: normal Respiratory status: normal Airway patency: baseline Mental status: baseline Post-Op hydration status: normal Vital Signs: Last Vital Signs Temp 97.7 F 06/11/24 14:00 Pulse 82 06/11/24 14:00 Resp 20 06/11/24 14:00 BP 152/73 H 06/11/24 14:00 Pulse Ox 98 06/11/24 14:00 O2 Del Method Room Air 06/11/24 08:10 O2 Flow Rate 2 06/10/24 16:35 Pain Score (VAS): 0/10 I/O: Intake & Output 06/10/24 06/11/24 06/11/24 23:59 07:59 15:59 Intake Total 400 400 236 Output Total 300 Balance 100 400 236 Laboratory Tests 06/11/24 05:35 06/11/24 05:35 06/11/24 05:35 WBC 13.0 H RBC 4.16 L Hgb 11.7 L Hct 37.4 MCV 89.9 D MCH 28.1 MCHC 31.3 L RDW 14.6 H Plt Count 354 MPV 9.1 Immature Gran % (Auto) 0.4 Neut % (Auto) 86.7 H Lymph % (Auto) 9.3 L [place] % (Auto) 3.4 Eos % (Auto) 0.0 Baso % (Auto) 0.2 Lymph # (Auto) 1.21 [place] # (Auto) 0.4 Eos # (Auto) 0.0 Baso # (Auto) 0.0 Abs Immat Gran (auto) 0.05 H Absolute Neuts (auto) 11.3 H Absolute Nucleated RBC 0.000 Nucleated RBC % 0.0 Sodium 136 L Potassium 3.7 Chloride 103 Carbon Dioxide 27 Anion Gap 6 BUN 18 H Creatinine 0.60 L Estim Creat Clear Calc 90 Estimated GFR > 60 Glucose 111 H Calcium 9.0 Total Bilirubin 0.8 Direct Bilirubin 0.0 AST 120 H ALT 263 H Alkaline Phosphatase 74 Total Protein 7.0 Albumin 3.5 Post-procedural complaints: none Patient Feedback: Patient satisfied with anesthetic care.
[2024-06-12] MEDS: PIPERACILLN/TAZ 3.375GM/NS50ML 3.375 GM/50 ML BAG IVPB ×4 (03:16→22:11)
[2024-06-12 05:17] VITALS: BP 146/61; PULSE 81; RESP 16; TEMP 36.5; O2SAT 99
[2024-06-12] MEDS: LACTATED RINGERS 1,000 ML 100 ML IV CONT ×2 (05:39→16:33)
[2024-06-12 06:22] LABS: Hematocrit 36.8 % (37.0-47.0); Hemoglobin 11.1 g/dL (12.0-15.0); Mean Corpuscular HGB Conc 30.2 g/dl (32-36); Mean Corpuscular Hemoglobin 28.4 pg (26-34); Mean Corpuscular Volume 94.1 fl (80-100); Mean Platelet Volume 8.9 fl (7.4-10.4); Platelet Count Result 337 k/mm3 (150-375); Red Blood Count 3.91 M/mm3 (4.2-5.4); Red Cell Distribution Width 14.5 % (11.5-14.5); White Blood Count 11.5 K/mm3 (4.5-10.0)
[2024-06-12 06:32] LABS: Anion Gap 11 mmol/L (4-12); Blood Urea Nitrogen 23 mg/dL (7-17); Calcium 8.6 mg/dL (8.4-10.2); Carbon Dioxide 20 mmol/L (22-30); Chloride 103 mmol/L (98-107); Estimated CRCL calculation 62 ml/min; Estimated Glomerular Filt Rate > 60; Glucose 125 mg/dL (65-110); Potassium 3.7 mmol/L (3.4-5.0); Sodium 134 mmol/L (137-145)
[2024-06-12] MEDS: ENOXAPARIN 40 MG/0.4 ML SYRINGE SUB-Q (08:24)
[2024-06-12] MEDS: ONDANSETRON INJ 4 MG/2 ML VIAL IV PUSH (08:32)
--- NOTE | 2024-06-12 11:53 | P.PNGS_ITS ---
Progress Note: A&P Assessment and Plan (1) Acute appendicitis: Qualifiers: Acute appendicitis type: with generalized peritonitis Appendicitis abscess presence: without abscess Appendicitis gangrene presence: without gangrene Appendicitis perforation presence: with perforation Qualified Code(s): K35.201 - Acute appendicitis with generalized peritonitis, with perforation, without abscess Code(s): K35.80 - Unspecified acute appendicitis Status: Acute (2) Postoperative ileus: Code(s): K91.89 - Other postprocedural complications and disorders of digestive system; K56.7 - Ileus, unspecified Status: Acute Plan * Continue Zosyn * Await improved bowel function * Continue clear liquids Subjective Subjective Date/Time Seen: 06/12/24 11:53 Interval history: Passing flatus. Still feeling bloated and not much appetite. A little nauseated but no vomiting. Pain controlled and up ambulating. Exam GI: Inspection: distended and incision (intact with glue) GI Palp: Yes Soft to palpation, Yes Tenderness to palpation present (GI) (mild) and No Guarding due to palpation present (GI) Auscultation: Hypoactive bowel sounds present Objective Data Vital Signs Vital Signs: Vital Signs - 24 hr 06/11/24 14:00 06/11/24 18:26 06/11/24 20:17 Temperature 97.7 F 97.2 F L 98.2 F Pulse Rate 82 91 75 Respiratory Rate 20 18 18 Blood Pressure 152/73 H 155/80 H 154/83 H Pulse Oximetry 98 99 95 Oxygen Delivery 06/11/24 20:20 06/11/24 23:44 06/12/24 05:17 Temperature 97.9 F 97.7 F Pulse Rate 75 80 81 Respiratory Rate 18 16 16 Blood Pressure 149/60 H 146/61 H Pulse Oximetry 95 99 99 Oxygen Delivery Room Air Intake/Output Intake/Output: Intake & Output 06/09/24 06/10/24 06/11/24 06/12/24 23:59 23:59 23:59 23:59 Intake Total 1450 2025 2029 Output Total 300 Balance 1150 2025 2029 Meds/Results Medications: Active Medications Generic Name Dose Route Start Last Admin Trade Name Freq PRN Reason Stop Dose Admin Hydrocodone Bitart/Acetaminophen 1 tab 06/10/24 16:46 06/11/24 18:26 Hydrocodone/Acetaminophen (*Crx) 5-325 Mg Tablet PO 1 tab Q4H PRN Administration Pain Rated 4-6 Hydrocodone Bitart/Acetaminophen 1 tab 06/10/24 16:46 Hydrocodone/Acetaminophen (*Crx) 7.5-325 Mg Tablet PO Q4H PRN Pain Rated 7-10 Diphenhydramine HCl 25 mg 06/10/24 16:46 Diphenhydramine Hcl Inj 50 Mg/Ml Vial IV PUSH Q6H PRN Itching Enoxaparin Sodium 40 mg 06/11/24 09:00 06/12/24 08:24 Enoxaparin 40 Mg/0.4 Ml Syringe SUB-Q 40 mg DAILY AMANDA Administration Hydromorphone HCl 1 mg 06/10/24 16:46 Hydromorphone Hcl Inj (*Crx) 1 Mg/Ml Syr IV PUSH Q2H PRN Breakthrough Pain Rated 7-10 or NPO Hydromorphone HCl 0.5 mg 06/10/24 16:46 Hydromorphone Hcl Inj (*Crx) 1 Mg/Ml Syr IV PUSH Q2H PRN Breakthrough Pain Rated 4-6 or NPO Ibuprofen 800 mg in 200 mls @ 400 mls/hr 06/10/24 16:46 Caldolor 800 Mg/200 Ml IVPB Q6H PRN Breakthrough Pain Rated 1-3 or NPO Lactated Ringer's 1,000 mls @ 100 mls/hr 06/11/24 09:00 06/12/24 09:02 Lr - Lactated Ringers Iv IV CONT 100 mls/hr .Q10H AMANDA Infusion Piperacillin/Tazobactam/Dextrose 3.375 gm in 50 mls @ 100 mls/hr 06/11/24 09:00 06/12/24 08:54 Zosyn 3.375 Gm/Ns 50 Ml IVPB Infused Q6H AMANDA Infusion Ibuprofen 600 mg 06/10/24 16:46 Ibuprofen 600 Mg Tablet PO Q6H PRN Pain Rated 1-3 Naloxone HCl 0.1 mg 06/10/24 16:46 Naloxone Hcl 0.4 Mg/Ml Vial IV PUSH Q2M PRN Opiate Reversal Ondansetron HCl 4 mg 06/10/24 16:46 06/12/24 08:32 Ondansetron Inj 4 Mg/2 Ml Vial IV PUSH 4 mg Q4H PRN Administration Nausea And Vomiting Radiology Results: ITS Impressions Abdomen/Pelvis CT 06/10/24 06:55 Impression: Suspected acute appendicitis with right lower quadrant inflammatory change. No abscess or free air. Other inflammatory bowel disease/enteritis would be a potential alternative consideration with reactive dilatation of the appendix. Correlate clinically. Labs Labs: Laboratory Results - last 24 hr 06/12/24 06:08 WBC 11.5 H RBC 3.91 L Hgb 11.1 L Hct 36.8 L MCV 94.1 MCH 28.4 MCHC 30.2 L RDW 14.5 Plt Count 337 MPV 8.9 Sodium 134 L Potassium 3.7 Chloride 103 Carbon Dioxide 20 L Anion Gap 11 BUN 23 H Creatinine 0.90 Estim Creat Clear Calc 62 Estimated GFR > 60 Glucose 125 H Calcium 8.6
[2024-06-12] MEDS: HYDROcodone/acetaminophen (*CRX) 5-325 MG TABLET 1 TAB PO (12:14)
[2024-06-12 14:00] VITALS: BP 138/64; PULSE 78; RESP 16; TEMP 36.5; O2SAT 99
[2024-06-12 20:00] VITALS: BP 142/63; PULSE 74; RESP 12; TEMP 36.1; O2SAT 96
[2024-06-12 21:09] VITALS: BP 142/63; PULSE 74; RESP 12; TEMP 36.1; O2SAT 96
[2024-06-13] MEDS: PIPERACILLN/TAZ 3.375GM/NS50ML 3.375 GM/50 ML BAG IVPB ×3 (03:17→14:08)
[2024-06-13] MEDS: LACTATED RINGERS 1,000 ML 100 ML IV CONT (04:28)
[2024-06-13 05:16] VITALS: BP 154/64; PULSE 77; RESP 16; TEMP 36.6; O2SAT 97
[2024-06-13 05:53] LABS: Anion Gap 10 mmol/L (4-12); Blood Urea Nitrogen 19 mg/dL (7-17); Calcium 9.5 mg/dL (8.4-10.2); Carbon Dioxide 25 mmol/L (22-30); Chloride 101 mmol/L (98-107); Estimated CRCL calculation 56 ml/min; Estimated Glomerular Filt Rate 58; Glucose 117 mg/dL (65-110); Potassium 3.9 mmol/L (3.4-5.0); Sodium 136 mmol/L (137-145)
[2024-06-13 06:14] LABS: Hematocrit 41.7 % (37.0-47.0); Hemoglobin 12.2 g/dL (12.0-15.0); Mean Corpuscular HGB Conc 29.3 g/dl (32-36); Mean Corpuscular Hemoglobin 28.4 pg (26-34); Mean Platelet Volume 9.1 fl (7.4-10.4); Platelet Count Result 409 k/mm3 (150-375); Red Cell Distribution Width 14.6 % (11.5-14.5); White Blood Count 9.1 K/mm3 (4.5-10.0)
[2024-06-13] MEDS: ENOXAPARIN 40 MG/0.4 ML SYRINGE SUB-Q (08:25)
[2024-06-13 14:00] VITALS: BP 144/58; PULSE 75; RESP 16; TEMP 36.6; O2SAT 98
--- NOTE | 2024-06-13 15:04 | P.DS_ITS ---
DS: Admitting Diagnosis Discharge Date 06/13/2024 Admitting Diagnosis Acute perforated appendicitis, hypothyroid DS: Discharge Diagnosis Discharge Diagnosis (1) Acute appendicitis: Qualifiers: Acute appendicitis type: with generalized peritonitis Appendicitis abscess presence: without abscess Appendicitis gangrene presence: without gangrene Appendicitis perforation presence: with perforation Qualified Code(s): K35.201 - Acute appendicitis with generalized peritonitis, with perforation, without abscess Code(s): K35.80 - Unspecified acute appendicitis Status: Acute (2) Hypothyroid: Code(s): E03.9 - Hypothyroidism, unspecified Status: Acute DS: Summary Hospital Course Reason for hospitalization: Acute perforated appendicitis Hospital Course: This is a 54-year-old woman who presented to the emergency department on 06/10/2024 with complaints of right lower quadrant abdominal pain. Her imaging showed evidence of acute appendicitis and she had an elevated white blood count. Her history and exam were consistent with acute appendicitis. She underwent laparoscopic appendectomy on 06/10/2024 and was found to have perforated appendicitis at that time. She was returned to the surgical floor postoperatively and Zosyn was continued. She was started on a clear liquid diet initially. On postop day 1 her white blood count was slightly improved and her pain was well controlled but she was still feeling bloated and somewhat nauseated. She was kept on clear liquid diet to prevent any worsening signs of ileus. On postop day 2 she was still feeling bloated and did not have much appetite. She was ambulating in the halls and was overall gradually feeling better. She was passing some flatus. On postop day 3 she was feeling much better and had multiple bowel movements. She was advanced to full liquid diet and then to a regular diet and seemed to tolerate this well. She was remaining hemodynamically stable and afebrile. She was discharged on 06/13/2024. Status at Discharge Functional status at discharge: independent ambulation Overall status at discharge: patient is progressing back to baseline Time Spent with Patient Time attestation: Total time spent providing and/or coordinating discharge services: Time spent: Less than 30 minutes Exam Const: General: comfortable, no acute distress and alert Resp: Effort & Inspection: normal respiratory effort Auscultation: clear to auscultation bilaterally Cardio: Rate: regular rate Rhythm: regular rhythm Heart sounds: S1 normal heart sound present and S2 normal heart sound present GI: Inspection: non-distended and incision (Intact with glue) GI Palp: Yes Soft to palpation, No Tenderness to palpation present (GI) and No Guarding due to palpation present (GI) DS: Data Data Completed and Pending Completed studies during hospitalization: Pending at discharge 06/10/24 15:10 Surgical [PTH] Routine Labs on day of discharge: Labs from last 24 hours 06/13/24 05:22 WBC 9.1 RBC 4.30 Hgb 12.2 Hct 41.7 MCV 97.0 MCH 28.4 MCHC 29.3 L RDW 14.6 H Plt Count 409 H MPV 9.1 Sodium 136 L Potassium 3.9 Chloride 101 Carbon Dioxide 25 Anion Gap 10 BUN 19 H Creatinine 1.00 Estim Creat Clear Calc 56 Estimated GFR 58 L Glucose 117 H Calcium 9.5 Discharge Plan Discharge Attending physician on discharge: Wang Ng Consulting providers: Andrea Sanchez Jr.; Jose Maria Ramirez; Aylin Ramirez; Baljeet Hewitt; Jimenez Banks Discharging Clinician: Wang Ng Anticipated Discharge Date/Time: 06/13/24 17:00 Patient Disposition: Home, Self-Care Activity: other - see discharge instructions Diet: regular Wound Care Instructions: other - see discharge instructions Discharge Instructions: DISCHARGE INSTRUCTION SHEET FOR HERNIA, GALLBLADDER AND APPENDIX SURGERIES DR. NG PATIENT TO TAKE HOME 1. May shower in 24 hours, no soaking in bath x 2weeks. 2. Call office for: * Wound increasingly painful or bleeding * Vomiting * Fever of greater than 101 degrees 3. If no bowel movement for three days, take 1 oz. (30 ml) Milk of Magnesia or MiraLax 17g 1 to 2 times daily. 4. No heavy lifting > 10-15 pounds x weeks for hernia repairs and 2 weeks for laparoscopic cholecystectomy or appendectomy. 5. No driving for 3 days or while taking narcotic pain medications. 6. Ice to surgical site for 48 hours (30 min on, then 30 min off). 7. Up walking 10-30 minutes three times per day. 8. Resume previous home medications. 9. Follow-up 10-14 days in office for wound check or as previously scheduled. ([id number]) 10. Oral pain medications prescription to be sent to pharmacy. Take Tylenol 500mg every 6 hours and Ibuprofen 600mg every 6 hours for the first 2 days, then as needed. 11. NUTRITION: Start out by drinking fluids and increase your diet as tolerated. If you experience nausea, try dry toast, crackers, and 7-UP. If nausea or vomiting persists, contact your surgeon?s office. 12. Gallbladders-Low Fat Diet for 2 weeks (send care note of low fat diet) 13. Inguinal Hernias-wear scrotal support for 48 hours 14. Abdominal Hernias-if sent home with abdominal binder, wear for the first 2 weeks (may remove to shower or at night to sleep). Revised December 2018 Patient Instructions: Antibiotic Form Stand Alone Forms: General Discharge Information Follow-up/Referrals: Wang Ng DO [Physician] - 2 Weeks Discharge Medications: New hydrocodone-acetaminophen 5-325 mg tablet 1 tablet PO Q4H PRN (Reason: pain) Qty: 10 0RF metronidazole 500 mg tablet 500 mg PO Q8H 7 Days Qty: 21 0RF amoxicillin-pot clavulanate 875-125 mg tablet 1 tablet PO Q12H 7 Days Qty: 14 0RF Continued vitamin B complex Tablet 1 tablet PO DAILY cholecalciferol (vitamin D3) 125 mcg (5,000 unit) capsule 250 mcg PO DAILY Digestive Advantage Prob Gummy 250 million cell tablet,chewable 1 cell PO DAILY ezetimibe [Zetia] 10 mg tablet 10 mg PO DAILY Qty: 90 3RF colestipol 1 gram tablet 1 g PO BID Qty: 180 1RF levothyroxine [Tirosint] 50 mcg capsule 50 mcg PO DAILY Qty: 90 2RF Date of admission: 06/12/24 14:52 Primary Care Provider: Isra Burns Admitting Provider: Wang Ng Attending physician on admission: Wang Ng Condition: Stable
== END 2024-06-13 17:45 | disposition home or self-care (01) | DRG 398 ==
LOC: ANHED 09:29 → ANH3MEDSUR 11:06 → ANHSURGERY 11:30 → ANH2MED 17:27
PROVIDERS: Family Medicine; Admitting Provider Surgery; Emergency Provider Emergency Medicine; PCP Family Medicine; Visit Provider Surgery
PROC: 0DTJ4ZZ Resection of Appendix, Percutaneous Endoscopic Approach (ICD-10-PCS; CPT 44970; principal; 2024-06-10 15:00)
DX: K35.201 Acute appendicitis with generalized peritonitis, with perforation, without abscess (principal); G61.81 Chronic inflammatory demyelinating polyneuritis; K91.89 Other postprocedural complications and disorders of digestive system; K56.7 Ileus, unspecified; E03.9 Hypothyroidism, unspecified; E78.5 Hyperlipidemia, unspecified; E55.9 Vitamin D deficiency, unspecified; K58.1 Irritable bowel syndrome with constipation; R73.03 Prediabetes; F41.9 Anxiety disorder, unspecified
CPT/HCPCS: 36415; 74177; 80048; 80053; 80076; 81001; 81025; 83690; 85025; 85027; 87086; 88304; 96361; 96365; 96366; 96375; 99285; A9270; G0378; J1100; J1650; J1885; J2003; J2250; J2270; J2405; J2543; J2704; J3010; J7030; J7120; Q9967

== ENCOUNTER 2024-07-03 07:16 | Outpatient (CLI) | payer BC, SELFPAY ==
[2024-07-03 10:24] LABS: Alanine Aminotransferase 357 U/L (6-35); Albumin Level 4.2 g/dL (3.5-5.1); Alkaline Phosphatase 67 U/L (38-126); Aspartate Amino Transferase 284 U/L (14-36); Bilirubin,Total 0.6 mg/dL (0.2-1.3)
[2024-07-03 10:40] LABS: Hemoglobin A1C 6.4 % (<5.7)
[2024-07-03 10:59] LABS: Creatine Kinase 11871 U/L (30-135)
[2024-07-03 11:00] LABS: Folic Acid > 20.0 ng/mL (2.76->20)
[2024-07-08 06:12] LABS: Methylmalonic Acid 179 nmol/L (55-335)
== END 2024-07-03 07:17 | disposition home or self-care (01) ==
LOC: ANHLAB 07:18
PROVIDERS: PCP Family Medicine; Visit Provider Psychiatry & Neurology Neurology
DX: G72.9 Myopathy, unspecified (principal); G61.81 Chronic inflammatory demyelinating polyneuritis; M62.81 Muscle weakness (generalized); E55.9 Vitamin D deficiency, unspecified
CPT/HCPCS: 36415; 80076; 82550; 82607; 82746; 83036; 83090; 83519; 83921; 86038; 86039; 86334

== ENCOUNTER 2024-10-07 14:13 | Outpatient (CLI) | payer BC, SELFPAY ==
--- NOTE | ~2024-10-07 | MM_ITS ---
EXAMINATION: MM screening teresa BI w danielle HISTORY: Screening mammogram TECHNIQUE: Craniocaudal and mediolateral oblique 3-D tomosynthesis images were obtained and synthetic 2-D images were generated. CAD analysis was submitted and interpreted. COMPARISON: 08/16/2023, 03/15/2022, 02/21/2021 BREAST PARENCHYMAL COMPOSITION:Dense: The breasts are heterogeneously dense, which may obscure small masses. FINDINGS: No suspicious mass, calcification, or architectural distortion are identified in either truman ast to suggest malignancy. There has been no suspicious interval change. IMPRESSION: No mammographic evidence of malignancy. Recommend routine screening mammography in one year. BI-RADS Category 1: Negative Reviewed, dictated and finalized at location . BAGGER
--- OUTSIDE RECORDS SUMMARY | 2024-10-07 16:29 | XMS_ITS | Patient Health Summary ---
Author Organization [facility] Address [address] [place] [address] Care Team Providers Care Medical Receptionist Medical Assistant Name Role Phone Unavailable Primary Care Provider Unavailabl e Note from [facility],non-owned Affiliates and Associated Physician Practices is amultiple site organization consisting of ambulatory clinics and hospital sitesin [place], [place], [place] and [place]. This disclosure is being madepursuant to the Care Everywhere program and may not contain all information available regarding this patient. Last updated 18.[facility] Immunizations * INFLUENZA VACCINE, QUADR. (FLUZONE; FLULAVAL; FLUARIX; AFLURIA QUADRIVALENT; 6MO+), 0.5 ML (IIV4)(Given 05/20/2020, 05/25/2019, 05/21/2017) * Influenza Pf Intradermal (ADULT)(Given 05/12/2016) Social History Tobacco Use Types Packs/Day Years Used Date Smoking Tobacco: Never Assessed Sex and Gender Information Value Date Recorded Sex Assigned at Not on file Gender Identity Not on file Sexual Orientation Not on file
--- OUTSIDE RECORDS SUMMARY | 2024-10-07 16:29 | XMS_ITS | Clinical Summary ---
Author Organization [facility] Address [address] [place] [address] Care Team Providers Care Sports Betting Manager Name Role Phone Loree Burns MD Primary Care Provider Allergies No known active allergies Medications atorvastatin 40 MG tablet Take 40 mg by mouth daily. 1 12/19/2017 Active vitamin D3, cholecalciferol , 1000 UNIT Tab tablet Take 1 tablet by mouth daily. Active B Complex Cap capsule Take 1 capsule by mouth daily. Active polyethylene glycol packet Take 1 packet by mouth daily. 10/11/2017 Active Active Problems Problem Noted Date Diagnosed Date Abdominal bloating 10/11/2017 Abdominal pain 10/11/2017 Heartburn 10/11/2017 Constipation 10/02/2017 Dyslipidemia 10/02/2017 IBS (irritable bowel syndrome) 10/02/2017 Immunizations Name Administration Dates Next Due Influenza Adult (Generic) 05/21/2017,05/12/2016 Family History Medical History Relation Comments Heart Disease Father Hyperlipidemia Father Heart Disease Mother Relation Status Comments Father Mother Social History Tobacco Use Types Packs/Day Years Used Date Smoking Tobacco: Never Smokeless Tobacco: Never Alcohol Use Standard Drinks/Week Comments No 0 (1 standard drink = 0.6 oz pur e alcohol) Comments No Sex and Gender Information Value Date Recorded Sex Assigned at Not on file Legal Sex Female 9:04 AM CDT Gender Identity Not on file Sexual Orientation Not on file Last Filed Vital Signs Vital Sign Reading Time Taken Comments Blood Pressure 136/71 01/22/2018 2:25 PM CDT Pulse 72 01/22/2018 2:25 PM CDT Temperature 36.6 C (97.9 F) 01/22/2018 11:28 AM CDT Respiratory Rate 18 01/22/2018 2:25 PM CDT Oxygen Saturation 98% 01/22/2018 2:25 PM CDT Inhaled Oxygen Concentration - - Weight 72.6 kg (160 lb) 01/30/2019 2:32 PM CDT Height 162.6 cm (5' 4 ) 01/30/2019 2:32 PM CDT Body Mass Index 27.46 01/30/2019 2:32 PM CDT Plan of Treatment Health Maintenance Due Date Last Done Comments Cervical Cancer Screening Pa p Smear (Age 30 to 64) Every 3 Years 1970 Annual Physical 1973 Hepatitis C 01/12/1988 DTaP, Tdap and Td Vaccines ( 1 - Tdap) 1989 Hepatitis B Vaccines (1 of 3 - 19+ 3-dose series) 1989 Cervical Cancer Screening Pa p with HPV Testing (Age 30 to 64) Every 5 Years 01/12/2000 Cervical Cancer Screening wi th HPV 01/12/2000 Mammogram Screening 2010 Zoster Vaccines (1 of 2) 01/12/2020 COVID-19 Vaccine (2023-2 5 season) 2024 Influenza Adult (#1) 2024 05/21/2017, 05/12/2016 Colorectal Cancer Screening Colonoscopy (10 Years) 01/23/2028 01/22/2018, 01/22/2018 Meningococcal B Vaccine Aged Out No l onger eligible based on patient's age to complete this topic Meningococcal Vaccine Aged Out No jose daniel talia eligible based on patient's age to complete this topic Pneumococcal Vaccine: Pediatrics (0 to 5 Years) and At-Risk Patients (6 to 64 Years) Aged Out No longer eligible b ased on patient's age to complete this topic RSV Immunizations Under 20 Months Aged Out No longer eligible b ased on patient's age to complete this topic Medical Devices Implanted Type Area Grocery Clerk Device Identifier Shelf Expiration Date Model / Serial / Lot Left Wrist Procedures Procedure Name Priority Date/Time Associated Diagnosis Comments COLONOSCOPY/EGD GENERIC (SCA N ORDER) Routine 01/22/2018 from Last 3 Months or Most Recently Relevant to Health Maintenance Results * COLONOSCOPY/EGD (01/22/2018) us Documents Scanned SCANNING Final Result from Last 3 Months or Most Recently Relevant to Health Maintenance Insurance Care Teams Sports Betting Manager Relationship Specialty Start Date End Date Loree Burns MD PCP - General FAMILY PRACTICE 01/22/18
--- OUTSIDE RECORDS SUMMARY | 2024-10-07 16:29 | XMS_ITS | Clinical Summary ---
Author Organization [facility] Address [address] [place] [address] Care Team Providers Care Pile Driving Technician Name Role Phone Unavailable Primary Care Provider Unavailabl e Source Comments [facility],non-owned Affiliates and Associated Physician Practices is amultiple site organization consisting of ambulatory clinics and hospital sitesin [place], [place], [place]. This disclosure is being madepursuant to the Care Everywhere program and may not contain all information available regarding this patient. Last updated 18.[facility] Immunizations Name Administration Dates Next Due INFLUENZA VACCINE, QUADR. (F LUZONE; FLULAVAL; FLUARIX; AFLURIA QUADRIVALENT; 6MO+), 0.5 ML (IIV4) 05/20/2020,05/25/2019,05/21/2017 Influenza Pf Intradermal (ADULT) 05/12/2016 Social History Tobacco Use Types Packs/Day Years Used Date Smoking Tobacco: Never Assessed Sex and Gender Information Value Date Recorded Sex Assigned at Not on file Gender Identity Not on file Sexual Orientation Not on file Plan of Treatment Health Maintenance Due Date Last Done Comments COLOGUARD (AGES 45-75) - COLON CA SCREENING 1970 COLON MONITORING 1970 COLONOSCOPY - COLON CA SCREENING 1970 CT COLONOGRAPHY - COLON CA SCREENING 1970 Colorectal Cancer Screening 1970 FIT - COLON CA SCREENING 1970 FLEX SIG - COLON CA SCREENING 1970 LIPID TESTING 1970 MAMMOGRAM 1970 PAP SMEAR 1970 HIV SCREENING 1985 HEPATITIS C SCREENING 01/07/1988 DTAP/TDAP/TD VACCINES (1 - Tdap) 1989 HEPATITIS B VACCINE (1 of 3 - 19+ 3-dose series) 1989 PNEUMOCOCCAL VACCINE 50+ (1 of 1 - PCV) 01/12/2020 ZOSTER VACCINE (1 of 2) 01/12/2020 COVID-19 VACCINE (1 - 2023- season) 2024 INFLUENZA VACCINE (#1) 2024 0, 05/25/2019, 05/21/2017, Additional history exists DEPRESSION SCREENING 08/13/2024 HIB VACCINE Aged Out No longer eligi ble based on patient's age to complete this topic HPV VACCINE Aged Out No longer eligi ble based on patient's age to complete this topic MENINGOCOCCAL (Group B) VACCINE Aged Out No longer eligible based on patient's age to complete this topic MENINGOCOCCAL VACCINE Aged Out No jose daniel talia eligible based on patient's age to complete this topic PNEUMOCOCCAL VACCINE Aged Out No long er eligible based on patient's age to complete this topic Edwige Bryan Personal/Family Self 1970
--- OUTSIDE RECORDS SUMMARY | 2024-10-07 16:29 | XMS_ITS | Clinical Summary ---
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 Role Phone Loree Burns MD Primary Care Provider Allergies Active Allergy Reactions Criticality Noted Date Comments Dcaynvn-Scd-Vwf Reductase Inhibitors Other (See comments) Low 09/16/2021 myopathy Medications cholecalcifero l (VITAMIN D-3) 25 mcg (1,000 unit) tablet Take 1 tablet (1,000 Units total) by mouth daily Active vitamin B complex capsule Take 1 capsule by mouth daily Active colestipoL (COLESTID) 1 gram tablet Take 1 tablet (1 g total) by mouth 2 (two) times a day 03/16/20 22 Active ezetimibe (ZETIA) 10 mg tablet Take 1 tablet (10 mg total) by mouth daily 12/19/19 23 Active iron bisgly,ps-FA-B -C#12-succ 65 mg-65 mg -1,000 mcg (24) tablet Take by mouth Acti ve levothyroxine (SYNTHROID) 75 mcg tablet Take 1 tablet (75 mcg total) by mouth peer educator before breakfast 09/23/19 25 Active levothyroxine (SYNTHROID) 75 mcg tablet Take 1 tablet (75 mcg total) by mouth peer educator before breakfast 09/23/19 25 025 Discontinued Active Problems Problem Noted Date Diagnosed Date 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 Encounters Date Type Department Care Team Description 09/22/2024 Documentation [facility] Muscle [address] [facility] Medicine 6th [place] [address] [place] [address] Sierra Mcgrath RN 09/19/2024 8:14 PM LUNCH COOK - 09/22/2024 9:00 PM LUNCH COOK [address] [address] Rajiv Grimm MD PhD Neetu Ron MD PhD 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) Discharge Disposition: Discharge to home or self care 08/29/2024 1:30 PM LUNCH COOK Infusion [address] [address] Statin myopathy (Primary Dx) 08/27/2024 Orders Only [facility] Scanning, Provider 08/22/2024 2:00 PM LUNCH COOK Infusion [address] [address] Statin myopathy (Primary Dx) 08/21/2024 9:35 AM LUNCH COOK Lab [facility] [address] [place] [address] 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 7:30 AM LUNCH COOK Office Visit [facility] Muscle [address] [facility] Medicine 6th [place] [address] Judie Enriquez NP 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 Documentation [facility] Muscle [address] [facility] Medicine 6th [place] [address] Edyta Cates, JENNIFER 08/15/2024 3:00 PM LUNCH COOK Infusion [address] [address] Statin myopathy (Primary Dx) 08/08/2024 1:30 PM LUNCH COOK Infusion [address] [place] [phone] Statin myopathy (Primary Dx) 08/07/[address] [place] [phone] Augie Stevenson MD 08/01/2024 1:00 PM LUNCH COOK Infusion [address] [place] [phone] Statin myopathy (Primary Dx) 07/31/2024 8:00 AM LUNCH COOK Infusion [address] [place] [phone] Statin myopathy (Primary Dx) 07/30/2024 2:30 PM LUNCH COOK Infusion [address] [address] Statin myopathy (Primary Dx) 07/29/2024 1:30 PM LUNCH COOK Infusion [address] [address] Statin myopathy (Primary Dx) 07/28/2024 2:30 PM LUNCH COOK Infusion [address] [address] Statin myopathy (Primary Dx) 07/23/[address] [address] Love Lawson RN 07/23/[address] [place] [phone] Love Lawson, RN from Last 3 Months Surgical History Surgery Date Site/Laterality Comments KNEE SURGERY Left WRIST SURGERY Left post-injury repair, with carpal tunnel release ELBOW SURGERY Right Medical History Medical History Date Comments High cholesterol Thyroid disorder Anxiety Family History Medical History Relation Name Comments No Known Problems Father No Known Problems Mother Relation Name Status Comments Father Mother Social History Tobacco Use Types Packs/Day Years Used Date Smoking Tobacco: Never Smokeless Tobacco: Never Tobacco Cessation:Counseling Given: No AUDIT-C Answer Date Recorded Q1: How often do you have a drink containing alc ohol? Monthly or less 12/09/2020 Average Number of Drinks Not on file 021 Q3: How often do you have si x or more drinks on one occasion? Never 12/09/2020 Personal Safety Answer Date Recorded Have you ever been in or are you currently in a harmful physical or emotional relationship or is someone making you feel afraid or unsafe? Denies 09/19/2024 Comments Unknown Sex and Gender Information Value Date Recorded Sex Assigned at Not on file Legal Sex Female 3:48 AM LUNCH COOK Gender Identity Female 07/26/2022 9:02 AM LUNCH COOK Sexual Orientation Straight 07/26/2022 9: 02 AM LUNCH COOK Obstetrics History Last Filed Vital Signs Vital Sign Reading Time Taken Comments Blood Pressure 157/74 09/22/2024 7:58 PM LUNCH COOK Pulse 101 09/22/2024 7:58 PM LUNCH COOK Temperature 36.8 C (98.2 F) 09/22/2024 7:58 PM LUNCH COOK Respiratory Rate 19 09/22/2024 7:58 PM LUNCH COOK Oxygen Saturation 96% 09/22/2024 7:58 PM LUNCH COOK Inhaled Oxygen Concentration - - Weight 66.5 kg (146 lb 9.7 oz) 09/22/2024 11:20 AM LUNCH COOK Height 162.6 cm (5' 4.02 ) 09/22/2024 11:[address] Body Mass Index 25.15 09/22/2024 11:20 AM LUNCH COOK Plan of Treatment Health Maintenance Due Date Last Done Comments Breast Cancer Screening-Mammogram 1970 Cervical Cancer Screening 1970 Colon Cancer Screening-Colonoscopy 1970 Depression Screening 1970 Hepatitis B Screening 01/12/1988 Regular Well Visit/Exam 18-64 01/12/1988 Zoster Vaccine (1 of 2) 01/12/2020 DTaP/Tdap/Td Vaccine (2 - Td or Tdap) 01/22/2022 01/23/2012 Influenza Vaccine (#1) 2024 3, 05/20/2020, 05/25/2019, Additional history exists Hepatitis C Screening Completed 09/19/2024, 022 Pneumococcal vaccine <65 Aged Out No longer eligible based on patient's age to complete this topic Procedures Procedure Name Priority Date/Time Associated Diagnosis Comments T-SPOT.TB Routine 09/22/2024 10:46 AM LUNCH COOK EGFR Routine 09/22/2024 12:42 AM LUNCH COOK DIFFERENTIAL AUTO Routine 09/22/2024 12: 42 AM LUNCH COOK CBC WITH AUTO DIFFERENTIAL Routine 09/22/2024 12:42 AM LUNCH COOK BASIC METABOLIC PANEL Routine 09/22/2024 12:42 AM LUNCH COOK EGFR Routine 09/20/2024 8:12 PM LUNCH COOK DIFFERENTIAL AUTO Routine 09/20/2024 8:1 2 PM LUNCH COOK CBC WITH AUTO DIFFERENTIAL Routine 09/20/2024 8:12 PM LUNCH COOK BASIC METABOLIC PANEL Routine 09/20/2024 8:12 PM LUNCH COOK APTT STAT 09/20/2024 1:18 AM LUNCH COOK PROTIME-INR STAT 09/20/2024 1:18 AM LUNCH COOK DIFFERENTIAL AUTO STAT 09/19/2024 11: 23 PM LUNCH COOK CBC WITH AUTO DIFFERENTIAL STAT 09/19/2024 11:23 PM LUNCH COOK EGFR Timed 09/19/2024 10:24 PM LUNCH COOK IMMUNOGLOBULIN PROFILE Timed 10:24 PM LUNCH COOK BASIC METABOLIC PANEL Timed 09/19/2024 10:24 PM LUNCH COOK HEPATITIS B CORE ANTIBODY, TOTAL Timed 09/19/2024 10:24 PM LUNCH COOK HEPATITIS PANEL, ACUTE Timed 10:24 PM LUNCH COOK INSPIRATORY FORCE / LUNG MECHANICS Routine 09/19/2024 9:06 PM LUNCH COOK PULMONARY - RESULT SCAN 08/27/2024 4:59 PM LUNCH COOK NEUROMUSCULAR SPECIMEN TRACKING OUTPATIENT Routine 08/24/2024 2:13 PM LUNCH COOK Autoimmune necrotizing myopathy EGFR Routine 08/21/2024 9:08 AM LUNCH COOK Autoimmune necrotizing myopathy DIFFERENTIAL AUTO Routine 08/21/2024 9:0 8 AM LUNCH COOK Autoimmune necrotizing myopathy CREATINE KINASE (CK), TOTAL Routine 08/21/2024 9:08 AM LUNCH COOK Autoimmune necrotizing myopathy COMPREHENSIVE METABOLIC PANEL Routine 08/21/2024 9:08 AM LUNCH COOK Autoimmune necrotizing myopathy IMMUNE COMPETENCE Routine 08/21/2024 9:0 8 AM LUNCH COOK Autoimmune necrotizing myopathy CBC WITH AUTO DIFFERENTIAL Routine 08/21/2024 9:08 AM LUNCH COOK Autoimmune necrotizing myopathy from Last 3 Months Results * T-SPOT.TB Blood (09/22/2024 10:46 AM LUNCH COOK) [facility] T-SPOT.TB Negative SeeBelow Comment: Normal Value: Negative A negative test result does not exclude the possibility of exposure to or infection with Mycobacterium tuberculosis (M. tuberculosis). Patients with recent exposure to TB infected individuals exhibiting a negative T-SPOT.TB result should be considered for retesting within 6 weeks or if other relevant clinical symptoms indicate. Results from T-SPOT.TB testing must be used in conjunction with each individual's epidemiological history, current medical status, and results of other diagnostic evaluations. The T-SPOT.TB test is qualitative and results are reported as positive, borderline or negative, given that the test controls perform as expected. In line with the Centers for Disease Control and Prevention's 2010 recommendation to report quantitative measurements alongside the qualitative result, the laboratory provides spot counts for informational purposes only. The T-SPOT.TB test should not be interpreted as a quantitative test. T-SPOT.TB Panel A Spot Count 0 [facility] T-SPOT.TB Panel B Spot Count 0 [facility] T-SPOT.TB Negative Control Passed [facility] T-SPOT.TB Positive Control Passed [facility] Comment: Test Performed at: [facility] [address] [place] [address] SHAKIRA HUDDLESTON,PHD Blood 09/22/2024 10:4 6 AM LUNCH COOK 09/22/2024 10:53 AM LUNCH COOK Keya Rodríguez MD LAB MICROBIOLOGY - GENERAL O RDERABLES Final Result [facility] [place] [address] * eGFR (09/22/2024 12:42 AM LUNCH COOK) eGFR >90 >=60 mL/min/1. 73 m2 Comment: Interpretive Data Reference Interval Normal >/= 90 mL/min/1.73m2 Mildly decreased* 60 - 89 mL/min/1.73m2 Mildly to moderately decreased 45 - 59 mL/min/1.73m2 Moderately to severely decreased 30 - 44 mL/min/1.73m2 Severely decreased 15 - 29 mL/min/1.73m2 Kidney Failure < 15 mL/min/1.73m2 *Relative to young adult level Estimated glomerular filtration rate is determined by the 2020 CKD-EPI equation recommended by the National Kidney Foundation (A Unifying Approach to GFR Estimation: Recommendations of the NKF-ASK Task Force on Reassessing the Inclusion of Race in Diagnosing Kidney Disease, JASN 2020). The CKD-EPI equation should not be used for patients with unstable renal function and has not been validated in children and those over 70. Current interpretive data was last reviewed 2021. Blood 09/22/2024 12:4 2 AM LUNCH COOK 09/22/2024 1:39 AM LUNCH COOK us Rajiv Grimm MD PhD LAB BLOOD ORDCinda DC Final Result [facility] [place] [address] * Differential, auto (09/22/2024 12:42 AM LUNCH COOK) Neutrophil abs 2.6 1.5 - 6.5 K/cumm Imm gran abs 0.0 0.0 - 0.1 K/cumm [facility] Lymphocyte abs 2.5 0.8 - 3.3 K/cumm [facility] Monocyte abs 0.3 0.2 - 0.8 K/cumm [facility] Eosinophil abs 0.1 0.0 - 0.5 K/cumm [facility] Basophil abs 0.0 0.0 - 0.1 K/cumm [facility] Neutrophil pct 47.2 % [facility] Comment: Interpretive Data Percent cell count reference ranges are not reported, since discordance with absolute values may lead to misinterpretation of CBC data. Current Interpretive Data was last revised on 2017. Imm gran pct 0.4 % [facility] Comment: Interpretive Data Percent cell count reference ranges are not reported, since discordance with absolute values may lead to misinterpretation of CBC data. Current Interpretive Data was last revised on 2017. Lymphocyte pct 44.2 % [facility] Comment: Interpretive Data Percent cell count reference ranges are not reported, since discordance with absolute values may lead to misinterpretation of CBC data. Current Interpretive Data was last revised on 2017. Monocyte pct 5.0 % [facility] Comment: Interpretive Data Percent cell count reference ranges are not reported, since discordance with absolute values may lead to misinterpretation of CBC data. Current Interpretive Data was last revised on 2017. Eosinophil pct 2.5 % [facility] Comment: Interpretive Data Percent cell count reference ranges are not reported, since discordance with absolute values may lead to misinterpretation of CBC data. Current Interpretive Data was last revised on 2017. Basophil pct 0.7 % [facility] Comment: Interpretive Data Percent cell count reference ranges are not reported, since discordance with absolute values may lead to misinterpretation of CBC data. Current Interpretive Data was last revised on 2017. Blood 09/22/2024 12:4 2 AM LUNCH COOK 09/22/2024 1:39 AM LUNCH COOK Rajiv Grimm MD PhD LAB BLOOD CANDICE DC Final Result [facility] [place] [address] * (ABNORMAL) CBC with auto differential (09/22/2024 12:42 AM LUNCH COOK) [facility] WBC 5.6 3.8 - 9.9 K/cumm Hgb 12.9 11.9 - 15.5 g/dL [facility] Hct 39.8 35.6 - 45.5 % [facility] Plt 404(H) 150 - 400 K/cumm [facility] MPV 8.9(L) 9.1 - 12.3 fL [facility] RBC 4.39 3.90 - 5.20 M/cumm [facility] MCV 90.7 81.3 - 96.4 fL [facility] MCH 29.4 27.1 - 33.3 pg [facility] MCHC 32.4 32.3 - 35.7 g/dL [facility] RDW CV 14.2 11.1 - 14.9 % [facility] RDW SD 47.4 35.7 - 48.1 fL [facility] NRBC abs 0.00 0.00 - 0.01 K/cumm [facility] Blood 09/22/2024 12:4 2 AM LUNCH COOK 09/22/2024 1:39 AM LUNCH COOK us Rajiv Grimm MD PhD LAB BLOOD CANDICE DC Final Result [facility] [place] [address] * (ABNORMAL) Basic metabolic panel (09/22/2024 12:42 AM LUNCH COOK) Pathologist [facility] Sodium 139 135 - 145 mmol/L Potassium, pl 4.1 3.3 - 4.9 mmol/L [facility] Chloride 104 97 - 110 mmol/L [facility] CO2 25 22 - 32 mmol/L [facility] Anion gap 10 2 - 15 mmol/L [facility] BUN 13 6 - 25 mg/dL [facility] Creatinine 0.51(L) 0.60 - 1.10 mg/dL [facility] Glucose 145 70 - 199 mg/dL [facility] Comment: Interpretive Data Fasting glucose >/= 126 mg/dl is diagnostic for diabetes. Fasting is defined as no caloric intake for at least 8 hours. Fasting glucose between 100 mg/dl to 125 mg/dl is diagnostic of prediabetes. In a patient with classic symptoms of hyperglycemia or hyperglycemic crisis, a random glucose >/= 200 mg/dl is diagnostic for diabetes. In the absence of unequivocal hyperglycemia, results should be confirmed by repeat testing. The classification and Diagnosis of Diabetes Diabetes Care 202; 46: S19-S40. Current interpretive data was last revised 2022. Calcium 9.6 8.5 - 10.3 mg/dL [facility] Blood 09/22/2024 12:4 2 AM LUNCH COOK 09/22/2024 1:39 AM LUNCH COOK us Rajiv Grimm MD PhD LAB BLOOD CANDICE DC Final Result [facility] [place] [address] * eGFR (09/20/2024 8:12 PM LUNCH COOK) eGFR >90 >=60 mL/min/1. 73 m2 Comment: Interpretive Data Reference Interval Normal >/= 90 mL/min/1.73m2 Mildly decreased* 60 - 89 mL/min/1.73m2 Mildly to moderately decreased 45 - 59 mL/min/1.73m2 Moderately to severely decreased 30 - 44 mL/min/1.73m2 Severely decreased 15 - 29 mL/min/1.73m2 Kidney Failure < 15 mL/min/1.73m2 *Relative to young adult level Estimated glomerular filtration rate is determined by the 2020 CKD-EPI equation recommended by the National Kidney Foundation (A Unifying Approach to GFR Estimation: Recommendations of the NKF-ASK Task Force on Reassessing the Inclusion of Race in Diagnosing Kidney Disease, JASN 202). The CKD-EPI equation should not be used for patients with unstable renal function and has not been validated in children and those over 70. Current interpretive data was last reviewed 2021. Blood 09/20/2024 8:12 PM LUNCH COOK 09/20/2024 8:35 PM LUNCH COOK us Rajiv Grimm MD PhD LAB BLOOD ORDE VANDA Final Result [facility] [place] [address] * Differential, auto (09/20/2024 8:12 PM LUNCH COOK) Pathologist [facility] Neutrophil abs 5.2 1.5 - 6.5 K/cumm Imm gran abs 0.0 0.0 - 0.1 K/cumm [facility] Lymphocyte abs 2.3 0.8 - 3.3 K/cumm [facility] Monocyte abs 0.4 0.2 - 0.8 K/cumm [facility] Eosinophil abs 0.1 0.0 - 0.5 K/cumm [facility] Basophil abs 0.1 0.0 - 0.1 K/cumm [facility] Neutrophil pct 64.1 % [facility] Comment: Interpretive Data Percent cell count reference ranges are not reported, since discordance with absolute values may lead to misinterpretation of CBC data. Current Interpretive Data was last revised on 2017. Imm gran pct 0.5 % [facility] Comment: Interpretive Data Percent cell count reference ranges are not reported, since discordance with absolute values may lead to misinterpretation of CBC data. Current Interpretive Data was last revised on 2017. Lymphocyte pct 28.1 % [facility] Comment: Interpretive Data Percent cell count reference ranges are not reported, since discordance with absolute values may lead to misinterpretation of CBC data. Current Interpretive Data was last revised on 2017. Monocyte pct 5.3 % [facility] Comment: Interpretive Data Percent cell count reference ranges are not reported, since discordance with absolute values may lead to misinterpretation of CBC data. Current Interpretive Data was last revised on 2017. Eosinophil pct 1.4 % [facility] Comment: Interpretive Data Percent cell count reference ranges are not reported, since discordance with absolute values may lead to misinterpretation of CBC data. Current Interpretive Data was last revised on 2017. Basophil pct 0.6 % [facility] Comment: Interpretive Data Percent cell count reference ranges are not reported, since discordance with absolute values may lead to misinterpretation of CBC data. Current Interpretive Data was last revised on 2017. Blood 09/20/2024 8:12 PM LUNCH COOK 09/20/2024 8:39 PM LUNCH COOK us Rajiv Grimm MD PhD LAB BLOOD MONTCLAIRCinda DC Final Result [facility] [place] [address] * (ABNORMAL) CBC with auto differential (09/20/2024 8:12 PM LUNCH COOK) WBC 8.1 3.8 - 9.9 K/cumm Hgb 12.1 11.9 - 15.5 g/dL [facility] Hct 38.1 35.6 - 45.5 % [facility] Plt 411(H) 150 - 400 K/cumm [facility] MPV 8.5(L) 9.1 - 12.3 fL [facility] RBC 4.16 3.90 - 5.20 M/cumm [facility] MCV 91.6 81.3 - 96.4 fL [facility] MCH 29.1 27.1 - 33.3 pg [facility] MCHC 31.8(L) 32.3 - 35.7 g/dL [facility] RDW CV 14.4 11.1 - 14.9 % [facility] RDW SD 48.8(H) 35.7 - 48.1 fL [facility] NRBC abs 0.00 0.00 - 0.01 K/cumm [facility] Blood 09/20/2024 8:12 PM LUNCH COOK 09/20/2024 8:39 PM LUNCH COOK Rajiv Grimm MD PhD LAB BLOOD ORDCinda DC Final Result Performing Organization Address City/[facility]/ZIP Co de Phone Number [facility] [place] [address] * (ABNORMAL) Basic metabolic panel (09/20/2024 8:12 PM LUNCH COOK) [facility] Sodium 140 135 - 145 mmol/L Potassium, pl 3.8 3.3 - 4.9 mmol/L [facility] Chloride 107 97 - 110 mmol/L [facility] CO2 26 22 - 32 mmol/L [facility] Anion gap 7 2 - 15 mmol/L [facility] BUN 13 6 - 25 mg/dL [facility] Creatinine 0.56(L) 0.60 - 1.10 mg/dL [facility] Glucose 128 70 - 199 mg/dL [facility] Comment: Interpretive Data Fasting glucose >/= 126 mg/dl is diagnostic for diabetes. Fasting is defined as no caloric intake for at least 8 hours. Fasting glucose between 100 mg/dl to 125 mg/dl is diagnostic of prediabetes. In a patient with classic symptoms of hyperglycemia or hyperglycemic crisis, a random glucose >/= 200 mg/dl is diagnostic for diabetes. In the absence of unequivocal hyperglycemia, results should be confirmed by repeat testing. The classification and Diagnosis of Diabetes Diabetes Care 2021; 46: S19-S40. Current interpretive data was last revised 2022. Calcium 9.3 8.5 - 10.3 mg/dL [facility] Blood 09/20/2024 8:12 PM LUNCH COOK 09/20/2024 8:35 PM LUNCH COOK Rajiv Grimm MD PhD LAB BLOOD CANDICE DC Final Result Performing Organization Address [facility]/ZIP Co de Phone Number [facility] [place] [address] * aPTT (09/20/2024 1:18 AM LUNCH COOK) aPTT 29 28 - 38 sec Comment: Interpretive Data Heparin therapeutic range: 66.0 - 100.0 seconds. Range based on correlation with therapeutic heparin activity range of 0.3 - 0.7 Units/mL. Current interpretive data was last revised on 2023. Blood 09/20/2024 1:18 AM LUNCH COOK 09/20/2024 2:24 AM LUNCH COOK Sebastián Payne MD LAB BLOOD ORDERABLES Final Result Performing Organization Address [facility] de Phone Number [facility] [place] [address] * Protime-INR (09/20/2024 1:18 AM LUNCH COOK) Pathologist [facility] PT 10.1 9.7 - 13.0 sec INR 0.94 0.90 - 1.20 [facility] Comment: Interpretive data Oral anticoagulant therapeutic ranges: Venous thromboembolism prophylaxis or treatment: 2.0-3.0 CARDIOLOGY Standard range: 2.0-3.0 High-intensity range: 2.5-3.5 Refer to indication-specific guidelines for appropriate target ranges for prosthetic heart valve replacement. Current interpretive data was last revised on 2019. Blood 09/20/2024 1:18 AM LUNCH COOK 09/20/2024 2:24 AM LUNCH COOK Sebastián Payne MD LAB BLOOD ORDERABLES Final Result Performing Organization Address [facility] Co de Phone Number [facility] [place] [address] * Differential, auto (09/19/2024 11:23 PM LUNCH COOK) Pathologist [facility] Neutrophil abs 4.5 1.5 - 6.5 K/cumm Imm gran abs 0.0 0.0 - 0.1 K/cumm [facility] Lymphocyte abs 3.0 0.8 - 3.3 K/cumm [facility] Monocyte abs 0.4 0.2 - 0.8 K/cumm [facility] Eosinophil abs 0.1 0.0 - 0.5 K/cumm [facility] Basophil abs 0.0 0.0 - 0.1 K/cumm [facility] Neutrophil pct 55.3 % [facility] Comment: Interpretive Data Percent cell count reference ranges are not reported, since discordance with absolute values may lead to misinterpretation of CBC data. Current Interpretive Data was last revised on 2017. Imm gran pct 0.4 % [facility] Comment: Interpretive Data Percent cell count reference ranges are not reported, since discordance with absolute values may lead to misinterpretation of CBC data. Current Interpretive Data was last revised on 2017. Lymphocyte pct 37.3 % [facility] Comment: Interpretive Data Percent cell count reference ranges are not reported, since discordance with absolute values may lead to misinterpretation of CBC data. Current Interpretive Data was last revised on 2017. Monocyte pct 5.1 % [facility] Comment: Interpretive Data Percent cell count reference ranges are not reported, since discordance with absolute values may lead to misinterpretation of CBC data. Current Interpretive Data was last revised on 2017. Eosinophil pct 1.4 % [facility] Comment: Interpretive Data Percent cell count reference ranges are not reported, since discordance with absolute values may lead to misinterpretation of CBC data. Current Interpretive Data was last revised on 2017. Basophil pct 0.5 % [facility] Comment: Interpretive Data Percent cell count reference ranges are not reported, since discordance with absolute values may lead to misinterpretation of CBC data. Current Interpretive Data was last revised on 2017. Blood 09/19/2024 11:2 3 PM LUNCH COOK 09/20/2024 12:07 AM LUNCH COOK us Sebastián Payne MD LAB BLOOD ORDERABLES Final Result [facility] [place] [address] * (ABNORMAL) CBC with auto differential (09/19/2024 11:23 PM LUNCH COOK) [facility] WBC 8.1 3.8 - 9.9 K/cumm Hgb 12.7 11.9 - 15.5 g/dL [facility] Hct 39.2 35.6 - 45.5 % [facility] Plt 219 150 - 400 K/cumm [facility] MPV 10.0 9.1 - 12.3 fL [facility] RBC 4.28 3.90 - 5.20 M/cumm [facility] MCV 91.6 81.3 - 96.4 fL [facility] MCH 29.7 27.1 - 33.3 pg [facility] MCHC 32.4 32.3 - 35.7 g/dL [facility] RDW CV 14.6 11.1 - 14.9 % [facility] RDW SD 49.1(H) 35.7 - 48.1 fL [facility] NRBC abs 0.00 0.00 - 0.01 K/cumm [facility] Blood 09/19/2024 11:2 3 PM LUNCH COOK 09/20/2024 12:07 AM LUNCH COOK us Sebastián Payne MD LAB BLOOD ORDERABLES Final Result [facility] [place] [address] * (ABNORMAL) Immunoglobulin profile (09/19/2024 10:24 PM LUNCH COOK) [facility] Immunoglobulin G 676(L) 700 - 1,600 mg/dL Immunoglobulin A 195 70 - 400 mg/dL [facility] Immunoglobulin M 68 40 - 230 mg/dL [facility] Blood 09/19/2024 10:2 4 PM LUNCH COOK 09/19/2024 10:56 PM LUNCH COOK Neetu Ron MD PhD LAB BLOOD ORDERABLES Final Result [facility] [place] [address] * eGFR (09/19/2024 10:24 PM LUNCH COOK) Pathologist [facility] [place] eGFR >90 >=60 mL/min/1. 73 m2 Comment: Interpretive Data Reference Interval Normal >/= 90 mL/min/1.73m2 Mildly decreased* 60 - 89 mL/min/1.73m2 Mildly to moderately decreased 45 - 59 mL/min/1.73m2 Moderately to severely decreased 30 - 44 mL/min/1.73m2 Severely decreased 15 - 29 mL/min/1.73m2 Kidney Failure < 15 mL/min/1.73m2 *Relative to young adult level Estimated glomerular filtration rate is determined by the 2020 CKD-EPI equation recommended by the National Kidney Foundation (A Unifying Approach to GFR Estimation: Recommendations of the NKF-ASK Task Force on Reassessing the Inclusion of Race in Diagnosing Kidney Disease, JASN 2020). The CKD-EPI equation should not be used for patients with unstable renal function and has not been validated in children and those over 70. Current interpretive data was last reviewed 2021. Blood 09/19/2024 10:2 4 PM LUNCH COOK 09/19/2024 10:55 PM LUNCH COOK Neetu Ron MD PhD LAB BLOOD ORDERABLES Final Result [facility] [place] [address] * Hepatitis panel, acute Blood (09/19/2024 10:24 PM LUNCH COOK) [facility] Hep A IgM Nonreactive Nonreactive Hep B core IgM Nonreactive Nonreactive [facility] Hep C Ab Nonreactive Nonreactive [facility] Comment:Antibodies to HCV no t detected. Does NOT exclude the possibility of recent exposure to HCV. Current interpretive data was last revised on 22 HepBsAg Nonreactive Nonreactive [facility] Blood 09/19/2024 10:2 4 PM LUNCH COOK 09/19/2024 10:56 PM LUNCH COOK Neetu Ron MD PhD LAB MICROBIOLOGY - GENERAL ORDERABLES Final Result Performing Organization Address City/[facility]/ZIP Co de Phone Number [facility] [place] [address] * Hepatitis B core antibody, total Blood (09/19/2024 10:24 PM LUNCH COOK) Pathologist [facility] [place] Hep B core IgG/IgM Nonreactive Nonreactive Blood 09/19/2024 10:2 4 PM LUNCH COOK 09/19/2024 10:56 PM LUNCH COOK Neetu Ron MD PhD LAB MICROBIOLOGY - GENERAL ORDERABLES Final Result Performing Organization Address [facility] de Phone Number [facility] [place] [address] * (ABNORMAL) Basic metabolic panel (09/19/2024 10:24 PM LUNCH COOK) [facility] Sodium 140 135 - 145 mmol/L Potassium, pl See Comment 3.3 - 4.9 mmol/L [facility] Comment:Credited; Hemolyzed Specimen Chloride 105 97 - 110 mmol/L [facility] CO2 26 22 - 32 mmol/L [facility] Anion gap 9 2 - 15 mmol/L [facility] BUN 14 6 - 25 mg/dL [facility] Creatinine 0.51(L) 0.60 - 1.10 mg/dL [facility] Glucose 116 70 - 199 mg/dL [facility] Comment: Interpretive Data Fasting glucose >/= 126 mg/dl is diagnostic for diabetes. Fasting is defined as no caloric intake for at least 8 hours. Fasting glucose between 100 mg/dl to 125 mg/dl is diagnostic of prediabetes. In a patient with classic symptoms of hyperglycemia or hyperglycemic crisis, a random glucose >/= 200 mg/dl is diagnostic for diabetes. In the absence of unequivocal hyperglycemia, results should be confirmed by repeat testing. The classification and Diagnosis of Diabetes Diabetes Care 2021; 46: S19-S40. Current interpretive data was last revised 2022. Calcium 8.9 8.5 - 10.3 mg/dL [facility] Blood 09/19/2024 10:2 4 PM LUNCH COOK 09/19/2024 10:55 PM LUNCH COOK us Neetu Ron MD PhD LAB BLOOD ORDERABLES Final Result Performing Organization Address City/[facility] Co de Phone Number [facility] [place] [address] * PULMONARY - RESULT SCAN (08/27/2024 4:59 PM LUNCH COOK) Anatomical Region Laterality Modality Other Provider Scanning Final Result * Neuromuscular Specimen Tracking Outpatient Blood (08/24/2024 2:13 PM LUNCH COOK) Blood Narrative [facility] - 08/24/2024 2:13 PM LUNCH COOK Blood draw complete Judie Enriquez GENERAL OPERATOR LAB BLOOD ORDERABLES F inal Result Performing Organization Address [facility] Co de Phone Number [facility] [place] [address] * eGFR (08/21/2024 9:08 AM LUNCH COOK) eGFR >90 >=60 mL/min/1. 73 m2 Comment: Interpretive Data Reference Interval Normal >/= 90 mL/min/1.73m2 Mildly decreased* 60 - 89 mL/min/1.73m2 Mildly to moderately decreased 45 - 59 mL/min/1.73m2 Moderately to severely decreased 30 - 44 mL/min/1.73m2 Severely decreased 15 - 29 mL/min/1.73m2 Kidney Failure < 15 mL/min/1.73m2 *Relative to young adult level Estimated glomerular filtration rate is determined by the 2020 CKD-EPI equation recommended by the National Kidney Foundation (A Unifying Approach to GFR Estimation: Recommendations of the NKF-ASK Task Force on Reassessing the Inclusion of Race in Diagnosing Kidney Disease, JASN 2020). The CKD-EPI equation should not be used for patients with unstable renal function and has not been validated in children and those over 70. Current interpretive data was last reviewed 2021. Blood 08/21/2024 9:08 AM LUNCH COOK 08/21/2024 9:49 AM LUNCH COOK Judie Enriquez GENERAL OPERATOR LAB BLOOD ORDERABLES F inal Result [facility] [place] [address] * (ABNORMAL) Differential, auto (08/21/2024 9:08 AM LUNCH COOK) Neutrophil abs 7.0(H) 1.5 - 6.5 K/cumm Imm gran abs 0.0 0.0 - 0.1 K/cumm [facility] Lymphocyte abs 2.7 0.8 - 3.3 K/cumm [facility] Monocyte abs 0.5 0.2 - 0.8 K/cumm [facility] Eosinophil abs 0.1 0.0 - 0.5 K/cumm [facility] Basophil abs 0.1 0.0 - 0.1 K/cumm [facility] Neutrophil pct 67.4 % [facility] Comment: Interpretive Data Percent cell count reference ranges are not reported, since discordance with absolute values may lead to misinterpretation of CBC data. Current Interpretive Data was last revised on 2017. Imm gran pct 0.4 % [facility] Comment: Interpretive Data Percent cell count reference ranges are not reported, since discordance with absolute values may lead to misinterpretation of CBC data. Current Interpretive Data was last revised on 2017. Lymphocyte pct 26.5 % [facility] Comment: Interpretive Data Percent cell count reference ranges are not reported, since discordance with absolute values may lead to misinterpretation of CBC data. Current Interpretive Data was last revised on 2017. Monocyte pct 4.6 % [facility] Comment: Interpretive Data Percent cell count reference ranges are not reported, since discordance with absolute values may lead to misinterpretation of CBC data. Current Interpretive Data was last revised on 2017. Eosinophil pct 0.6 % [facility] Comment: Interpretive Data Percent cell count reference ranges are not reported, since discordance with absolute values may lead to misinterpretation of CBC data. Current Interpretive Data was last revised on 2017. Basophil pct 0.5 % [facility] Comment: Interpretive Data Percent cell count reference ranges are not reported, since discordance with absolute values may lead to misinterpretation of CBC data. Current Interpretive Data was last revised on 2017. Blood 08/21/2024 9:08 AM LUNCH COOK 08/21/2024 9:41 AM LUNCH COOK Judie Pippa Enriquez GENERAL OPERATOR LAB BLOOD ORDERABLES F inal Result Performing Organization Address City/[facility]/ZIP Co de Phone Number [facility] [place] [place] [address] * (ABNORMAL) Immune competence (08/21/2024 9:08 AM LUNCH COOK) CD3 pct 77 60 - 88 % CD3 Absolute 2,045(H) 661 - 1,963 cells/mcL [facility] CD4 pct 64 31 - 64 % [facility] CD4 Absolute 1,725(H) 365 - 1,294 cells/mcL [facility] CD8 pct 13 12 - 40 % [facility] CD8 Absolute 360 187 - 781 cells/mcL [facility] CD19 pct 10 6 - 25 % [facility] CD19 Absolute 263 86 - 488 cells/mcL [facility] [id number] pct 12 5 - 25 % [facility] [id number] Absolute 314 76 - 467 cells/mcL [facility] CD4/CD8 ratio 4.9(H) 0.9 - 4.4 [facility] Blood 08/21/2024 9:08 AM LUNCH COOK 08/21/2024 9:41 AM LUNCH COOK Judie Pippa Zoe BURCIAGA LAB BLOOD ORDERABLES F inal Result Performing Organization Address City/[facility]/ZIP Co de Phone Number [facility] [place] [address] * (ABNORMAL) CBC with auto differential (08/21/2024 9:08 AM LUNCH COOK) Pathologist [facility] [place] WBC 10.3(H) 3.8 - 9.9 K/cumm Hgb 14.2 11.9 - 15.5 g/dL [facility] Hct 44.2 35.6 - 45.5 % [facility] Plt 441(H) 150 - 400 K/cumm [facility] MPV 8.8(L) 9.1 - 12.3 fL [facility] RBC 4.99 3.90 - 5.20 M/cumm [facility] MCV 88.6 81.3 - 96.4 fL [facility] MCH 28.5 27.1 - 33.3 pg [facility] MCHC 32.1(L) 32.3 - 35.7 g/dL [facility] RDW CV 15.4(H) 11.1 - 14.9 % [facility] RDW SD 50.1(H) 35.7 - 48.1 fL [facility] NRBC abs 0.00 0.00 - 0.01 K/cumm [facility] Blood 08/21/2024 9:08 AM LUNCH COOK 08/21/2024 9:41 AM LUNCH COOK Judie Enriquez NP LAB BLOOD ORDERABLES F inal Result Performing Organization Address [facility] de Phone Number [facility] [place] [place] [address] * (ABNORMAL) Creatine kinase (CK), total (08/21/2024 9:08 AM LUNCH COOK) Pathologist [facility] [place] CK 5,538(H) 30 - 200 Units/L Blood 08/21/2024 9:08 AM LUNCH COOK 08/21/2024 9:41 AM LUNCH COOK Judie Pippa Enriquez LAB BLOOD ORDERABLES F inal Result Performing Organization Address [facility] de Phone Number [facility] [place] [address] * (ABNORMAL) Comprehensive metabolic panel (08/21/2024 9:08 AM LUNCH COOK) Sodium 140 135 - 145 mmol/L Potassium, pl 4.2 3.3 - 4.9 mmol/L [facility] Chloride 104 97 - 110 mmol/L [facility] CO2 24 22 - 32 mmol/L [facility] Anion gap 12 2 - 15 mmol/L [facility] BUN 17 6 - 25 mg/dL [facility] Creatinine 0.48(L) 0.60 - 1.10 mg/dL [facility] Glucose 116 70 - 199 mg/dL [facility] Comment: Interpretive Data Fasting glucose >/= 126 mg/dl is diagnostic for diabetes. Fasting is defined as no caloric intake for at least 8 hours. Fasting glucose between 100 mg/dl to 125 mg/dl is diagnostic of prediabetes. In a patient with classic symptoms of hyperglycemia or hyperglycemic crisis, a random glucose >/= 200 mg/dl is diagnostic for diabetes. In the absence of unequivocal hyperglycemia, results should be confirmed by repeat testing. The classification and Diagnosis of Diabetes Diabetes Care 202; 46: S19-S40. Current interpretive data was last revised 2022. Calcium 9.5 8.5 - 10.3 mg/dL [facility] Bilirubin, total 0.5 0.1 - 1.2 mg/dL [facility] Protein, pl 6.9 6.5 - 8.5 g/dL [facility] Albumin 3.9 3.5 - 5.0 g/dL [facility] Alk phos 64 40 - 130 Units/L [facility] ALT 290(H) 7 - 45 Units/L [facility] AST 157(H) 10 - 45 Units/L [facility] Blood 08/21/2024 9:08 AM LUNCH COOK 08/21/2024 9:41 AM LUNCH COOK us Judie Chengca Zoe GENERAL OPERATOR LAB BLOOD ORDERABLES F inal Result [facility] [place] [address] from Last 3 Months Insurance [facility] Advance Directives For more information, please contact: [phone] * Full Code (Latest Code Status on File) Date Activated Date Inactivated Comments 09/19/2024 9:06 PM 09/23/2024 1:46 AM 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
--- OUTSIDE RECORDS SUMMARY | 2024-10-07 16:29 | XMS_ITS | Referral Summary ---
Author Organization [facility] Medical Office Building B Address [address] [place] [address] Care Team Providers Care Insurance Case Manager Name Role Phone Loree Burns MD Primary Care Provider Encounters Date Type Department Care Team Description 09/22/2024 Documentation [facility]cle [address] [place] [address] Advanced Medicine 6th [address] [place] [phone] Sierra Mcgrath RN 09/19/2024 8:14 PM CONDUCTOR SLEEPING CAR - 09/22/2024 9:00 PM CONDUCTOR SLEEPING CAR Hospital Encounter [address] [phone] Rajiv Grimm MD PhD Neetu Ron MD PhD 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) Discharge Disposition: Discharge to home or self care 08/29/2024 1:30 PM CONDUCTOR SLEEPING CAR Infusion [address] [place] [phone] Statin myopathy (Primary Dx) 08/27/2024 Orders Only [facility] Scanning, Provider 08/22/2024 2:00 PM CONDUCTOR SLEEPING CAR Infusion [address] [place] [phone] Statin myopathy (Primary Dx) 08/21/2024 9:35 AM CONDUCTOR SLEEPING CAR Lab [facility] Advanced Medicine [facility] [address] [place] [address] [place] [phone] 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 Documentation [facility]cle [address] [facility] Medicine 6th Floor [address] [place] [address] [employer] 08/21/2024 7:30 AM CONDUCTOR SLEEPING CAR Office Visit [facility]cle [address] [facility] 6th Floor [address] [place] [address] Judie Enriquez NP Autoimmune necrotizing myopathy (Primary Dx) 08/15/2024 3:00 PM CONDUCTOR SLEEPING CAR Infusion [address] [place] [phone] Statin myopathy (Primary Dx) 08/08/2024 1:30 PM CONDUCTOR SLEEPING CAR Infusion [address] [phone] Statin myopathy (Primary Dx) 08/07/[address] [place] [phone] Augie Stevenson MD 08/01/2024 1:00 PM CONDUCTOR SLEEPING CAR Infusion [address] [phone] Statin myopathy (Primary Dx) 07/31/2024 8:00 AM CONDUCTOR SLEEPING CAR Infusion [address] [phone] Statin myopathy (Primary Dx) 07/30/2024 2:30 PM CONDUCTOR SLEEPING CAR Infusion [address] [place] [phone] Statin myopathy (Primary Dx) 07/29/2024 1:30 PM CONDUCTOR SLEEPING CAR Infusion [address] [place] [phone] Statin myopathy (Primary Dx) 07/28/2024 2:30 PM CONDUCTOR SLEEPING CAR Infusion [address] [place] [address] Statin myopathy (Primary Dx) 07/23/[address] [phone] Love Lawson RN 07/23/[address] [place] [phone] Love Lawson, MIRNA from Last 3 Months Allergies Active Allergy Reactions Criticality Noted Date Comments Imdcnbr-Lqx-Epa Reductase Inhibitors Other (See comments) Low 09/16/2021 [...] 1 tablet (75 mcg total) by mouth 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 before 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 09/23/19 25 Active levothyroxine (SYNTHROID) 75 mcg tablet Take 1 tablet (75 mcg total) by mouth 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 before breakfast 09/23/19 25 025 Discontinued Active Problems Problem Noted Date Diagnosed Date 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 Social History Tobacco Use Types Packs/Day Years [...] on file Legal Sex Female 3:48 AM CONDUCTOR SLEEPING CAR Gender Identity Female 07/26/2022 9:02 AM CONDUCTOR SLEEPING CAR Sexual Orientation Straight 07/26/2022 9: 02 AM CONDUCTOR SLEEPING CAR Last Filed Vital Signs Vital Sign Reading Time Taken Comments Blood Pressure 157/74 09/22/2024 7:58 PM CONDUCTOR SLEEPING CAR Pulse 101 09/22/2024 7:58 PM CONDUCTOR SLEEPING CAR Temperature 36.8 C (98.2 F) 09/22/2024 7:58 PM CONDUCTOR SLEEPING CAR Respiratory Rate 19 09/22/2024 7:58 PM CONDUCTOR SLEEPING CAR Oxygen Saturation 96% 09/22/2024 7:58 PM CONDUCTOR SLEEPING CAR Inhaled Oxygen Concentration - - Weight 66.5 kg (146 lb 9.7 oz) 09/22/2024 11:20 AM CONDUCTOR SLEEPING CAR Height 162.6 cm (5' 4.02 ) 09/22/2024 11:[address] Body Mass Index 25.15 09/22/2024 11:20 AM CONDUCTOR SLEEPING CAR Plan of Treatment Not on file Procedures Procedure Name Priority Date/Time Associated Diagnosis Comments T-SPOT.TB Routine 09/22/2024 10:46 AM CONDUCTOR SLEEPING CAR EGFR Routine 09/22/2024 12:42 AM CONDUCTOR SLEEPING CAR DIFFERENTIAL AUTO Routine 09/22/2024 12: 42 AM CONDUCTOR SLEEPING CAR CBC WITH AUTO DIFFERENTIAL Routine 09/22/2024 12:42 AM CONDUCTOR SLEEPING CAR BASIC METABOLIC PANEL Routine 09/22/2024 12:42 AM CONDUCTOR SLEEPING CAR EGFR Routine 09/20/2024 8:12 PM CONDUCTOR SLEEPING CAR DIFFERENTIAL AUTO Routine 09/20/2024 8:1 2 PM CONDUCTOR SLEEPING CAR CBC WITH AUTO DIFFERENTIAL Routine 09/20/2024 8:12 PM CONDUCTOR SLEEPING CAR BASIC METABOLIC PANEL Routine 09/20/2024 8:12 PM CONDUCTOR SLEEPING CAR APTT STAT 09/20/2024 1:18 AM CONDUCTOR SLEEPING CAR PROTIME-INR STAT 09/20/2024 1:18 AM CONDUCTOR SLEEPING CAR DIFFERENTIAL AUTO STAT 09/19/2024 11: 23 PM CONDUCTOR SLEEPING CAR CBC WITH AUTO DIFFERENTIAL STAT 09/19/2024 11:23 PM CONDUCTOR SLEEPING CAR EGFR Timed 09/19/2024 10:24 PM CONDUCTOR SLEEPING CAR IMMUNOGLOBULIN PROFILE Timed 10:24 PM CONDUCTOR SLEEPING CAR BASIC METABOLIC PANEL Timed 09/19/2024 10:24 PM CONDUCTOR SLEEPING CAR HEPATITIS B CORE ANTIBODY, TOTAL Timed 09/19/2024 10:24 PM CONDUCTOR SLEEPING CAR HEPATITIS PANEL, ACUTE Timed 10:24 PM CONDUCTOR SLEEPING CAR INSPIRATORY FORCE / LUNG MECHANICS Routine 09/19/2024 9:06 PM CONDUCTOR SLEEPING CAR PULMONARY - RESULT SCAN 08/27/2024 4:59 PM CONDUCTOR SLEEPING CAR NEUROMUSCULAR SPECIMEN TRACKING OUTPATIENT Routine 08/24/2024 2:13 PM CONDUCTOR SLEEPING CAR Autoimmune necrotizing myopathy EGFR Routine 08/21/2024 9:08 AM CONDUCTOR SLEEPING CAR Autoimmune necrotizing myopathy DIFFERENTIAL AUTO Routine 08/21/2024 9:0 8 AM CONDUCTOR SLEEPING CAR Autoimmune necrotizing myopathy CREATINE KINASE (CK), TOTAL Routine 08/21/2024 9:08 AM CONDUCTOR SLEEPING CAR Autoimmune necrotizing myopathy COMPREHENSIVE METABOLIC PANEL Routine 08/21/2024 9:08 AM CONDUCTOR SLEEPING CAR Autoimmune necrotizing myopathy IMMUNE COMPETENCE Routine 08/21/2024 9:0 8 AM CONDUCTOR SLEEPING CAR Autoimmune necrotizing myopathy CBC WITH AUTO DIFFERENTIAL Routine 08/21/2024 9:08 AM CONDUCTOR SLEEPING CAR Autoimmune necrotizing myopathy from Last 3 Months Results * T-SPOT.TB Blood (09/22/2024 10:46 AM CONDUCTOR SLEEPING CAR) Pathologist [facility] T-SPOT.TB Negative SeeBelow Comment: Normal Value: Negative [...] test. T-SPOT.TB Panel A Spot Count 0 [facility] T-SPOT.TB Panel B Spot Count 0 [facility] T-SPOT.TB Negative Control Passed [facility] T-SPOT.TB Positive Control Passed [facility] Comment: Test Performed at: [facility] [address] [place] [phone] SHAKIRA HUDDLESTON,PHD Blood 09/22/2024 10:4 6 AM CONDUCTOR SLEEPING CAR 09/22/2024 10:53 AM CONDUCTOR SLEEPING CAR Keya Margaret Rodríguez MD LAB MICROBIOLOGY - GENERAL O RDERABLES Final Result [facility] Department [place] [address] * eGFR (09/22/2024 12:42 AM CONDUCTOR SLEEPING CAR) Pathologist [facility] eGFR >90 >=60 mL/min/1. 73 m2 Comment: [...] reviewed 2021. Blood 09/22/2024 12:4 2 AM CONDUCTOR SLEEPING CAR 09/22/2024 1:39 AM CONDUCTOR SLEEPING CAR us Rajiv Grimm MD PhD LAB BLOOD CANDICE DC Final Result [facility] Department [place] [address] * Differential, auto (09/22/2024 12:42 AM CONDUCTOR SLEEPING CAR) Neutrophil abs 2.6 1.5 - 6.5 K/cumm Imm gran abs 0.0 0.0 - 0.1 K/cumm [facility] Lymphocyte abs 2.5 0.8 - 3.3 K/cumm [facility] Monocyte abs 0.3 0.2 - 0.8 K/cumm [facility] Eosinophil abs 0.1 0.0 - 0.5 K/cumm [facility] Basophil abs 0.0 0.0 - 0.1 K/cumm [facility] Neutrophil pct 47.2 % [facility] Comment: Interpretive Data Percent cell count reference ranges are not reported, since discordance with absolute values may lead to misinterpretation of CBC data. Current Interpretive Data was last revised on 2017. Imm gran pct 0.4 % [facility] Comment: Interpretive Data Percent cell count reference ranges are not reported, since discordance with absolute values may lead to misinterpretation of CBC data. Current Interpretive Data was last revised on 2017. Lymphocyte pct 44.2 % [facility] Comment: Interpretive Data Percent cell count reference ranges are not reported, since discordance with absolute values may lead to misinterpretation of CBC data. Current Interpretive Data was last revised on 2017. Monocyte pct 5.0 % [facility] Comment: Interpretive Data Percent cell count reference ranges are not reported, since discordance with absolute values may lead to misinterpretation of CBC data. Current Interpretive Data was last revised on 2017. Eosinophil pct 2.5 % [facility] Comment: Interpretive Data Percent cell count reference ranges are not reported, since discordance with absolute values may lead to misinterpretation of CBC data. Current Interpretive Data was last revised on 2017. Basophil pct 0.7 % [facility] Comment: Interpretive Data Percent cell count reference ranges are not reported, since discordance with absolute values may lead to misinterpretation of CBC data. Current Interpretive Data was last revised on 2017. Blood 09/22/2024 12:4 2 AM CONDUCTOR SLEEPING CAR 09/22/2024 1:39 AM CONDUCTOR SLEEPING CAR Rajiv Grimm MD PhD LAB BLOOD CANDICE DC Final Result [facility] Department [place] [address] * (ABNORMAL) CBC with auto differential (09/22/2024 12:42 AM CONDUCTOR SLEEPING CAR) WBC 5.6 3.8 - 9.9 K/cumm Hgb 12.9 11.9 - 15.5 g/dL [facility] Hct 39.8 35.6 - 45.5 % [facility] Plt 404(H) 150 - 400 K/cumm [facility] MPV 8.9(L) 9.1 - 12.3 fL [facility] RBC 4.39 3.90 - 5.20 M/cumm [facility] MCV 90.7 81.3 - 96.4 fL [facility] MCH 29.4 27.1 - 33.3 pg [facility] MCHC 32.4 32.3 - 35.7 g/dL [facility] RDW CV 14.2 11.1 - 14.9 % [facility] RDW SD 47.4 35.7 - 48.1 fL [facility] NRBC abs 0.00 0.00 - 0.01 K/cumm [facility] Blood 09/22/2024 12:4 2 AM CONDUCTOR SLEEPING CAR 09/22/2024 1:39 AM CONDUCTOR SLEEPING CAR Rajiv Grimm MD PhD LAB BLOOD ORDE VANDA Final Result [facility] Department [place] [address] * (ABNORMAL) Basic metabolic panel (09/22/2024 12:42 AM CONDUCTOR SLEEPING CAR) [facility] Signature Sodium 139 135 - 145 mmol/L Potassium, pl 4.1 3.3 - 4.9 mmol/L [facility] Chloride 104 97 - 110 mmol/L [facility] CO2 25 22 - 32 mmol/L [facility] Anion gap 10 2 - 15 mmol/L [facility] BUN 13 6 - 25 mg/dL [facility] Creatinine 0.51(L) 0.60 - 1.10 mg/dL [facility] Glucose 145 70 - 199 mg/dL [facility] Comment: Interpretive Data Fasting glucose >/= 126 [...] 2022. Calcium 9.6 8.5 - 10.3 mg/dL [facility] Blood 09/22/2024 12:4 2 AM CONDUCTOR SLEEPING CAR 09/22/2024 1:39 AM CONDUCTOR SLEEPING CAR Rajiv Grimm MD PhD LAB BLOOD CANIDCE DC Final Result Performing Organization Address City/[facility]/ZIP Co de Phone Number [facility] Department [place] [address] * eGFR (09/20/2024 8:12 PM CONDUCTOR SLEEPING CAR) eGFR >90 >=60 mL/min/1. 73 m2 Comment: [...] last reviewed 2021. Blood 09/20/2024 8:12 PM CONDUCTOR SLEEPING CAR 09/20/2024 8:35 PM CONDUCTOR SLEEPING CAR us Rajiv Grimm MD PhD LAB BLOOD CANDICE DC Final Result Performing Organization Address City/[facility]/ZIP Co de Phone Number [facility] Department [place] [address] * Differential, auto (09/20/2024 8:12 PM CONDUCTOR SLEEPING CAR) Neutrophil abs 5.2 1.5 - 6.5 K/cumm Imm gran abs 0.0 0.0 - 0.1 K/cumm [facility] Lymphocyte abs 2.3 0.8 - 3.3 K/cumm [facility] Monocyte abs 0.4 0.2 - 0.8 K/cumm [facility] Eosinophil abs 0.1 0.0 - 0.5 K/cumm [facility] Basophil abs 0.1 0.0 - 0.1 K/cumm [facility] Neutrophil pct 64.1 % [facility] [place] Comment: Interpretive Data Percent cell count reference ranges are not reported, since discordance with absolute values may lead to misinterpretation of CBC data. Current Interpretive Data was last revised on 2017. Imm gran pct 0.5 % [facility] Comment: Interpretive Data Percent cell count reference ranges are not reported, since discordance with absolute values may lead to misinterpretation of CBC data. Current Interpretive Data was last revised on 2017. Lymphocyte pct 28.1 % [facility] Comment: Interpretive Data Percent cell count reference ranges are not reported, since discordance with absolute values may lead to misinterpretation of CBC data. Current Interpretive Data was last revised on 2017. Monocyte pct 5.3 % [facility] Comment: Interpretive Data Percent cell count reference ranges are not reported, since discordance with absolute values may lead to misinterpretation of CBC data. Current Interpretive Data was last revised on 2017. Eosinophil pct 1.4 % [facility] Comment: Interpretive Data Percent cell count reference ranges are not reported, since discordance with absolute values may lead to misinterpretation of CBC data. Current Interpretive Data was last revised on 2017. Basophil pct 0.6 % [facility] Comment: Interpretive Data Percent cell count reference ranges are not reported, since discordance with absolute values may lead to misinterpretation of CBC data. Current Interpretive Data was last revised on 2017. Blood 09/20/2024 8:12 PM CONDUCTOR SLEEPING CAR 09/20/2024 8:39 PM CONDUCTOR SLEEPING CAR us Rajiv Grimm MD PhD LAB BLOOD ORDE VANDA Final Result [facility] Department [place] [address] * (ABNORMAL) CBC with auto differential (09/20/2024 8:12 PM CONDUCTOR SLEEPING CAR) [facility] WBC 8.1 3.8 - 9.9 K/cumm Hgb 12.1 11.9 - 15.5 g/dL [facility] Hct 38.1 35.6 - 45.5 % [facility] Plt 411(H) 150 - 400 K/cumm [facility] MPV 8.5(L) 9.1 - 12.3 fL [facility] RBC 4.16 3.90 - 5.20 M/cumm [facility] MCV 91.6 81.3 - 96.4 fL [facility] MCH 29.1 27.1 - 33.3 pg [facility] MCHC 31.8(L) 32.3 - 35.7 g/dL [facility] RDW CV 14.4 11.1 - 14.9 % [facility] RDW SD 48.8(H) 35.7 - 48.1 fL [facility] NRBC abs 0.00 0.00 - 0.01 K/cumm [facility] Blood 09/20/2024 8:12 PM CONDUCTOR SLEEPING CAR 09/20/2024 8:39 PM CONDUCTOR SLEEPING CAR Rajiv Grimm MD PhD LAB BLOOD CANDICE DC Final Result [facility] Department [place] [address] * (ABNORMAL) Basic metabolic panel (09/20/2024 8:12 PM CONDUCTOR SLEEPING CAR) [facility] Sodium 140 135 - 145 mmol/L Potassium, pl 3.8 3.3 - 4.9 mmol/L [facility] Chloride 107 97 - 110 mmol/L [facility] CO2 26 22 - 32 mmol/L [facility] Anion gap 7 2 - 15 mmol/L [facility] BUN 13 6 - 25 mg/dL [facility] Creatinine 0.56(L) 0.60 - 1.10 mg/dL [facility] Glucose 128 70 - 199 mg/dL [facility] Comment: Interpretive Data Fasting glucose >/= 126 [...] 2022. Calcium 9.3 8.5 - 10.3 mg/dL [facility] Blood 09/20/2024 8:12 PM CONDUCTOR SLEEPING CAR 09/20/2024 8:35 PM CONDUCTOR SLEEPING CAR us Rajiv Grimm MD PhD LAB BLOOD ORDCinda DC Final Result Performing Organization Address City/[facility] Co de Phone Number [facility] Department [place] [address] * aPTT (09/20/2024 1:18 AM CONDUCTOR SLEEPING CAR) Pathologist [facility] aPTT 29 28 - 38 sec Comment: Interpretive Data Heparin therapeutic range: 66.0 - 100.0 seconds. Range based on correlation with therapeutic heparin activity range of 0.3 - 0.7 Units/mL. Current interpretive data was last revised on 2023. Blood 09/20/2024 1:18 AM CONDUCTOR SLEEPING CAR 09/20/2024 2:24 AM CONDUCTOR SLEEPING CAR us Sebastián Payne MD LAB BLOOD ORDERABLES Final Result Performing Organization Address [facility]/ZIP Co de Phone Number [facility] Department [place] [address] * Protime-INR (09/20/2024 1:18 AM CONDUCTOR SLEEPING CAR) Pathologist [facility] PT 10.1 9.7 - 13.0 sec INR 0.94 0.90 - 1.20 [facility] Comment: Interpretive data Oral anticoagulant therapeutic ranges: Venous thromboembolism prophylaxis or treatment: 2.0-3.0 CARDIOLOGY Standard range: 2.0-3.0 High-intensity range: 2.5-3.5 Refer to indication-specific guidelines for appropriate target ranges for prosthetic heart valve replacement. Current interpretive data was last revised on 2019. Blood 09/20/2024 1:18 AM CONDUCTOR SLEEPING CAR 09/20/2024 2:24 AM CONDUCTOR SLEEPING CAR Sebastián Payne MD LAB BLOOD ORDERABLES Final Result [facility] Department [place] [address] * Differential, auto (09/19/2024 11:23 PM CONDUCTOR SLEEPING CAR) Neutrophil abs 4.5 1.5 - 6.5 K/cumm Imm gran abs 0.0 0.0 - 0.1 K/cumm [facility] Lymphocyte abs 3.0 0.8 - 3.3 K/cumm [facility] Monocyte abs 0.4 0.2 - 0.8 K/cumm [facility] Eosinophil abs 0.1 0.0 - 0.5 K/cumm [facility] Basophil abs 0.0 0.0 - 0.1 K/cumm [facility] Neutrophil pct 55.3 % [facility] Comment: Interpretive Data Percent cell count reference ranges are not reported, since discordance with absolute values may lead to misinterpretation of CBC data. Current Interpretive Data was last revised on 2017. Imm gran pct 0.4 % [facility] Comment: Interpretive Data Percent cell count reference ranges are not reported, since discordance with absolute values may lead to misinterpretation of CBC data. Current Interpretive Data was last revised on 2017. Lymphocyte pct 37.3 % [facility] Comment: Interpretive Data Percent cell count reference ranges are not reported, since discordance with absolute values may lead to misinterpretation of CBC data. Current Interpretive Data was last revised on 2017. Monocyte pct 5.1 % [facility] Comment: Interpretive Data Percent cell count reference ranges are not reported, since discordance with absolute values may lead to misinterpretation of CBC data. Current Interpretive Data was last revised on 2017. Eosinophil pct 1.4 % [facility] Comment: Interpretive Data Percent cell count reference ranges are not reported, since discordance with absolute values may lead to misinterpretation of CBC data. Current Interpretive Data was last revised on 2017. Basophil pct 0.5 % [facility] Comment: Interpretive Data Percent cell count reference ranges are not reported, since discordance with absolute values may lead to misinterpretation of CBC data. Current Interpretive Data was last revised on 2017. Blood 09/19/2024 11:2 3 PM CONDUCTOR SLEEPING CAR 09/20/2024 12:07 AM CONDUCTOR SLEEPING CAR us Sebastián Payne MD LAB BLOOD ORDERABLES Final Result [facility] Department [place] [address] * (ABNORMAL) CBC with auto differential (09/19/2024 11:23 PM CONDUCTOR SLEEPING CAR) WBC 8.1 3.8 - 9.9 K/cumm Hgb 12.7 11.9 - 15.5 g/dL [facility] Hct 39.2 35.6 - 45.5 % [facility] Plt 219 150 - 400 K/cumm [facility] MPV 10.0 9.1 - 12.3 fL [facility] RBC 4.28 3.90 - 5.20 M/cumm [facility] MCV 91.6 81.3 - 96.4 fL [facility] MCH 29.7 27.1 - 33.3 pg [facility] MCHC 32.4 32.3 - 35.7 g/dL [facility] RDW CV 14.6 11.1 - 14.9 % [facility] RDW SD 49.1(H) 35.7 - 48.1 fL [facility] NRBC abs 0.00 0.00 - 0.01 K/cumm [facility] Blood 09/19/2024 11:2 3 PM CONDUCTOR SLEEPING CAR 09/20/2024 12:07 AM CONDUCTOR SLEEPING CAR us Sebastián Payne MD LAB BLOOD ORDERABLES Final Result Performing Organization Address City/[facility]/ZIP Co de Phone Number [facility] Department [place] [address] * (ABNORMAL) Immunoglobulin profile (09/19/2024 10:24 PM CONDUCTOR SLEEPING CAR) Pathologist [facility] Immunoglobulin G 676(L) 700 - 1,600 mg/dL Immunoglobulin A 195 70 - 400 mg/dL [facility] Immunoglobulin M 68 40 - 230 mg/dL [facility] Blood 09/19/2024 10:2 4 PM CONDUCTOR SLEEPING CAR 09/19/2024 10:56 PM CONDUCTOR SLEEPING CAR us eNetu Ron MD PhD LAB BLOOD ORDERABLES Final Result Performing Organization Address City/[facility] Co de Phone Number [facility] [place] [address] * eGFR (09/19/2024 10:24 PM CONDUCTOR SLEEPING CAR) Pathologist [facility] eGFR >90 >=60 mL/min/1. 73 m2 Comment: [...] reviewed 2021. Blood 09/19/2024 10:2 4 PM CONDUCTOR SLEEPING CAR 09/19/2024 10:55 PM CONDUCTOR SLEEPING CAR us Neetu Ron MD PhD LAB BLOOD ORDERABLES Final Result Performing Organization Address City/[facility] Co de Phone Number [facility] [address] * Hepatitis panel, acute Blood (09/19/2024 10:24 PM CONDUCTOR SLEEPING CAR) Pathologist [facility] Hep A IgM Nonreactive Nonreactive Hep B core IgM Nonreactive Nonreactive [facility] Hep C Ab Nonreactive Nonreactive [facility] Comment:Antibodies to HCV no t detected. Does NOT exclude the possibility of recent exposure to HCV. Current interpretive data was last revised on 22 HepBsAg Nonreactive Nonreactive [facility] Blood 09/19/2024 10:2 4 PM CONDUCTOR SLEEPING CAR 09/19/2024 10:56 PM CONDUCTOR SLEEPING CAR Result [facility] us Neetu Ron MD PhD LAB MICROBIOLOGY - GENERAL ORDERABLES Final Result Performing Organization Address [facility] de Phone Number [facility] [place] [address] * Hepatitis B core antibody, total Blood (09/19/2024 10:24 PM CONDUCTOR SLEEPING CAR) Pathologist [facility] Hep B core IgG/IgM Nonreactive Nonreactive Blood 09/19/2024 10:2 4 PM CONDUCTOR SLEEPING CAR 09/19/2024 10:56 PM CONDUCTOR SLEEPING CAR Neetu Ron MD PhD LAB MICROBIOLOGY - GENERAL ORDERABLES Final Result Performing Organization Address [facility] Co de Phone Number [facility] [place] [address] * (ABNORMAL) Basic metabolic panel (09/19/2024 10:24 PM CONDUCTOR SLEEPING CAR) Sodium 140 135 - 145 mmol/L Potassium, pl See Comment 3.3 - 4.9 mmol/L [facility] Comment:Credited; Hemolyzed Specimen Chloride 105 97 - 110 mmol/L [facility] CO2 26 22 - 32 mmol/L [facility] Anion gap 9 2 - 15 mmol/L [facility] BUN 14 6 - 25 mg/dL [facility] Creatinine 0.51(L) 0.60 - 1.10 mg/dL [facility] Glucose 116 70 - 199 mg/dL [facility] Comment: Interpretive Data Fasting glucose >/= 126 [...] 2022. Calcium 8.9 8.5 - 10.3 mg/dL [facility] Blood 09/19/2024 10:2 4 PM CONDUCTOR SLEEPING CAR 09/19/2024 10:55 PM CONDUCTOR SLEEPING CAR us Neetu Ron MD PhD LAB BLOOD ORDERABLES Final Result [facility] [place] [address] * PULMONARY - RESULT SCAN (08/27/2024 4:59 PM CONDUCTOR SLEEPING CAR) Anatomical Region Laterality Modality Other us Provider Scanning Final Result * Neuromuscular Specimen Tracking Outpatient Blood (08/24/2024 2:13 PM CONDUCTOR SLEEPING CAR) Blood Narrative [facility] - 08/24/2024 2:13 PM CONDUCTOR SLEEPING CAR Blood draw complete us Judie Pippa Hopfinger WELDING 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 73 m2 Comment: [...] last reviewed 2021. Blood 08/21/2024 9:08 AM CONDUCTOR SLEEPING CAR 08/21/2024 9:49 AM CONDUCTOR SLEEPING CAR Judie Pippadelia Enriquez NP LAB BLOOD ORDERABLES F inal Result Performing Organization Address [facility] Co de Phone Number [facility] [place] [address] * (ABNORMAL) Differential, auto (08/21/2024 9:08 AM CONDUCTOR SLEEPING CAR) Neutrophil abs 7.0(H) 1.5 - 6.5 K/cumm Imm gran abs 0.0 0.0 - 0.1 K/cumm [facility] Lymphocyte abs 2.7 0.8 - 3.3 K/cumm [facility] Monocyte abs 0.5 0.2 - 0.8 K/cumm [facility] Eosinophil abs 0.1 0.0 - 0.5 K/cumm [facility] Basophil abs 0.1 0.0 - 0.1 K/cumm [facility] Neutrophil pct 67.4 % [facility] Comment: Interpretive Data Percent cell count reference ranges are not reported, since discordance with absolute values may lead to misinterpretation of CBC data. Current Interpretive Data was last revised on 2017. Imm gran pct 0.4 % [facility] Comment: Interpretive Data Percent cell count reference ranges are not reported, since discordance with absolute values may lead to misinterpretation of CBC data. Current Interpretive Data was last revised on 2017. Lymphocyte pct 26.5 % [facility] Comment: Interpretive Data Percent cell count reference ranges are not reported, since discordance with absolute values may lead to misinterpretation of CBC data. Current Interpretive Data was last revised on 2017. Monocyte pct 4.6 % [facility] Comment: Interpretive Data Percent cell count reference ranges are not reported, since discordance with absolute values may lead to misinterpretation of CBC data. Current Interpretive Data was last revised on 2017. Eosinophil pct 0.6 % [facility] Comment: Interpretive Data Percent cell count reference ranges are not reported, since discordance with absolute values may lead to misinterpretation of CBC data. Current Interpretive Data was last revised on 2017. Basophil pct 0.5 % [facility] Comment: Interpretive Data Percent cell count reference ranges are not reported, since discordance with absolute values may lead to misinterpretation of CBC data. Current Interpretive Data was last revised on 2017. Blood 08/21/2024 9:08 AM CONDUCTOR SLEEPING CAR 08/21/2024 9:41 AM CONDUCTOR SLEEPING CAR us Judie Enriquez NP LAB BLOOD ORDERABLES F inal Result [facility] Department [place] [address] * (ABNORMAL) Immune competence (08/21/2024 9:08 AM CONDUCTOR SLEEPING CAR) CD3 pct 77 60 - 88 % CD3 Absolute 2,045(H) 661 - 1,963 cells/mcL [facility] CD4 pct 64 31 - 64 % [facility] CD4 Absolute 1,725(H) 365 - 1,294 cells/mcL [facility] CD8 pct 13 12 - 40 % [facility] CD8 Absolute 360 187 - 781 cells/mcL [facility] CD19 pct 10 6 - 25 % [facility] CD19 Absolute 263 86 - 488 cells/mcL [facility] [id number] pct 12 5 - 25 % [facility] [id number] Absolute 314 76 - 467 cells/mcL [facility] CD4/CD8 ratio 4.9(H) 0.9 - 4.4 [facility] Blood 08/21/2024 9:08 AM CONDUCTOR SLEEPING CAR 08/21/2024 9:41 AM CONDUCTOR SLEEPING CAR Judie Enriquez WELDING MACHINE OPERATOR [employer] LAB BLOOD ORDERABLES F inal Result [facility] Department [place] [address] * (ABNORMAL) CBC with auto differential (08/21/2024 9:08 AM CONDUCTOR SLEEPING CAR) [facility] WBC 10.3(H) 3.8 - 9.9 K/cumm Hgb 14.2 11.9 - 15.5 g/dL [facility] Hct 44.2 35.6 - 45.5 % [facility] Plt 441(H) 150 - 400 K/cumm [facility] MPV 8.8(L) 9.1 - 12.3 fL [facility] RBC 4.99 3.90 - 5.20 M/cumm [facility] MCV 88.6 81.3 - 96.4 fL [facility] MCH 28.5 27.1 - 33.3 pg [facility] MCHC 32.1(L) 32.3 - 35.7 g/dL [facility] RDW CV 15.4(H) 11.1 - 14.9 % [facility] RDW SD 50.1(H) 35.7 - 48.1 fL [facility] NRBC abs 0.00 0.00 - 0.01 K/cumm [facility] Blood 08/21/2024 9:08 AM CONDUCTOR SLEEPING CAR 08/21/2024 9:41 AM CONDUCTOR SLEEPING CAR Judie Castilloeyad WELDING MACHINE OPERATOR [employer] LAB BLOOD ORDERABLES F inal Result Performing Organization Address [facility]/ZIP Co de Phone Number [facility] Department [place] [address] * (ABNORMAL) Creatine kinase (CK), total (08/21/2024 9:08 AM CONDUCTOR SLEEPING CAR) [facility] CK 5,538(H) 30 - 200 Units/L Blood 08/21/2024 9:08 AM CONDUCTOR SLEEPING CAR 08/21/2024 9:41 AM CONDUCTOR SLEEPING CAR Judie Das Zoe WELDING MACHINE OPERATOR [employer] LAB BLOOD ORDERABLES F inal Result Performing Organization Address [facility] de Phone Number [facility] [place] [address] * (ABNORMAL) Comprehensive metabolic panel (08/21/2024 9:08 AM CONDUCTOR SLEEPING CAR) [facility] Sodium 140 135 - 145 mmol/L Potassium, pl 4.2 3.3 - 4.9 mmol/L [facility] Chloride 104 97 - 110 mmol/L [facility] CO2 24 22 - 32 mmol/L [facility] Anion gap 12 2 - 15 mmol/L [facility] BUN 17 6 - 25 mg/dL [facility] Creatinine 0.48(L) 0.60 - 1.10 mg/dL [facility] Glucose 116 70 - 199 mg/dL [facility] Comment: Interpretive Data Fasting glucose >/= 126 [...] 2022. Calcium 9.5 8.5 - 10.3 mg/dL [facility] Bilirubin, total 0.5 0.1 - 1.2 mg/dL [facility] Protein, pl 6.9 6.5 - 8.5 g/dL [facility] Albumin 3.9 3.5 - 5.0 g/dL [facility] Alk phos 64 40 - 130 Units/L [facility] ALT 290(H) 7 - 45 Units/L [facility] AST 157(H) 10 - 45 Units/L [facility] Blood 08/21/2024 9:08 AM CONDUCTOR SLEEPING CAR 08/21/2024 9:41 AM CONDUCTOR SLEEPING CAR Judie Enriquez NP LAB BLOOD ORDERABLES F inal Result [facility] [place] [address] from Last 3 Months Insurance * Guarantor: Edwige Byran Account Type Relation to Patient Date of Phone Billing Address Personal/Family Self 1970 [address] [facility] [place] [address] [place] [employer] [place] * Guarantor: Edwige Bryan Account Type Relation to Patient Date of Phone Billing Address Personal/Family Self 1970 [address] [facility] [place] [address] [employer] [facility] FEDERAL Advance Directives For more information, please contact: [phone] * Full Code (Latest Code Status on File) Date Activated Date Inactivated Comments 09/19/2024 9:06 PM 09/23/2024 1:46 AM Care Teams Insurance Case Manager Relationship Specialty Start Date End Date Loree Burns MD PCP - General Family Practice 12/28/20
--- OUTSIDE RECORDS SUMMARY | 2024-10-07 16:29 | XMS_ITS | Referral Summary ---
Author Organization [facility] [employer] Address [address] [place] [address] Care Team Providers Care Car Bracer Name Role Phone Unavailable Primary Care Provider Unavailabl e Source Comments [facility],non-owned Affiliates and Associated Physician Practices is amultiple site organization consisting of ambulatory clinics and hospital sitesin [place], [place], [place] and [place]. This disclosure is being madepursuant to the Care Everywhere program and may not contain all information available regarding this patient. Last updated 18.[facility] Immunizations Name Administration Dates Next Due INFLUENZA [...] Orientation Not on file Plan of Treatment Not on file Edwige Bryan Personal/Family Self 1970
== END 2024-10-07 14:14 | disposition home or self-care (01) ==
PROVIDERS: PCP Family Medicine; Visit Provider Obstetrics & Gynecology
DX: Z12.31 Encounter for screening mammogram for malignant neoplasm of breast (principal)
CPT/HCPCS: 77063; 77067

== ENCOUNTER 2024-11-13 11:00 | Outpatient (RCR) | payer BC, SELFPAY | END 2025-02-02 14:06 | disposition home or self-care (01) | LOC: ANHDMC 11:00 | PROVIDERS: Visit Provider Internal Medicine | DX: E11.9 Type 2 diabetes mellitus without complications (principal); Z71.89 Other specified counseling | CPT/HCPCS: G0108 ==

== ENCOUNTER 2025-04-28 10:20 | Outpatient (CLI) | payer BC, SELFPAY ==
--- NOTE | ~2025-04-28 | XR_ITS ---
X-rays right hand X-rays left hand Indication: Carpal tunnel syndrome, G56.03 Comparison: Left and right wrist x-rays 07/21/2022 Technique: 3 views right hand, 3 views left hand Findings/Impression: Right hand: 1. No fracture or dislocation. 2. Moderate degenerative changes basal joint of thumb. Left hand: 1. No fracture or dislocation. 2. Mild degenerative changes basal joint of thumb. 3. Distal radial plate and screw fixation volar surface as before. 4. Chronic ulnar styloid fracture. Reviewed, dictated and finalized at location R.
--- OUTSIDE RECORDS SUMMARY | 2025-04-28 12:04 | XMS_ITS | Clinical Summary ---
Author Organization [facility] [employer] Address [address] [place] [address] Care Team Providers Care Head Housekeeper Name Role Phone Unavailable Primary Care Provider Unavailabl e Source Comments [facility],non-owned Affiliates and Associated Physician Practices is amultiple site organization consisting of ambulatory clinics and hospital sitesin [place], [place], [place] and [place]. This disclosure is being madepursuant to the Care Everywhere program and may not contain all information available regarding this patient. Last updated 18.[facility] [employer] Immunizations Immunization Administration Dates Next Due INFLUENZA VACCINE, QUADR. (F LUZONE; FLULAVAL; FLUARIX; AFLURIA QUADRIVALENT; 6MO+), 0.5 ML (IIV4) 05/20/2020,05/25/2019,05/21/2017 Influenza Pf Intradermal (ADULT) 05/12/2016 Social History Tobacco Use Types Packs/Day Years Used Date Smoking Tobacco: Never Assessed Comments Unknown Sex and Gender Information Value Date Recorded Sex Assigned at Not on file Legal Sex Female 6:58 PM CDT Gender Identity Not on file Sexual [...] SCREENING 1970 LIPID TESTING 1970 MAMMOGRAM 1970 HIV SCREENING 1985 HEPATITIS C SCREENING 01/07/1988 DTAP/TDAP/TD VACCINES (1 - Tdap) 1989 HEPATITIS B VACCINE (1 of 3 - 19+ 3-dose series) 1989 PAP SMEAR 1991 PNEUMOCOCCAL VACCINE 50+ (1 of 1 - PCV) 01/12/2020 ZOSTER VACCINE (1 of 2) 01/12/2020 DEPRESSION SCREENING 08/13/2024 COVID-19 VACCINE (1 - season) 2025 INFLUENZA VACCINE (#1) 2025 0, 05/25/2019, 05/21/2017, Additional history exists HIB VACCINE Aged Out No longer eligi ble based on patient's age to complete this topic HPV VACCINE Aged Out No longer eligi ble based on patient's age to complete this topic MENINGOCOCCAL (Group B) VACCINE SHARED DECISION-MAKING Aged Out No longer eligible based on patient's age to complete this topic MENINGOCOCCAL GROUPS A/C/Y/W VACCINE Aged Out No longer eligible based on patient's age to complete this topic Insurance [facility] SELF PAY NO INSURANCE Member Subscriber Plan / Payer (Ef fective for All Dates) Name:Edwige Luis Member ID:Not on file Relation to Subscriber:Not on file Name:EDWIGE LUIS Subscriber ID:Not on file (Home) Address: [address] [place] [address] Payer ID:Not on file Group ID:Not on file Type:Self Pay Address: [place], [place]
--- OUTSIDE RECORDS SUMMARY | 2025-04-28 12:04 | XMS_ITS | Clinical Summary ---
Author Organization [facility] Medical Office Building B Address [address] [place] [address] Care Team Providers Care Non Destructive Testing Inspector Name Role Phone Loree Burns MD Primary Care Provider Allergies Active Allergy Reactions Criticality Noted Date Comments Yhuchdg-Xqg-Qos Reductase Inhibitors Other (See comments) Low 09/16/2021 myopathy Medications cholecalciferol (VITAMIN D-3) 25 mcg (1,000 unit) tablet Take 1 tablet (1,000 Units total) by mouth daily Active vitamin B complex capsule Take 1 capsule by mouth daily Active colestipoL (COLESTID) 1 gram tablet Take 1 tablet (1 g total) by mouth 2 (two) times a day 2 Active ezetimibe (ZETIA) 10 mg tablet Take 1 tablet (10 mg total) by mouth daily 3 Active iron bisgly,ps-FA-B- C#12-succ 65 mg-65 mg -1,000 mcg (24) tablet Take by mouth Active levothyroxine (SYNTHROID) 75 mcg tablet Take 1 tablet (75 mcg total) by mouth technical services assistant before breakfast 5 Active EPINEPHrine 0.3 mg/0.3 mL auto-injection syringe 5 Active acetaminophen-c odeine (TYLENOL with CODEINE #3) 300-30 mg per tablet Take 1-2 tablets by mouth 5 Active Active Problems Problem Noted Date Diagnosed Date 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 Encounters Date Type Department Care Team Description 03/16/2025 Telephone [facility] [address] [facility] [address] [place] [address] Ynes Nava RN 03/09/2025 Telephone [facility] Medicine Neuro Muscle [address] [facility] Advanced [facility] 6th [place] [address] Leidy Peace CMA 03/06/2025 Orders Only [facility] Medicine Neuro Muscle [address] [facility] 6th [place] [address] Matthew Whitehaed RN 03/05/2025 10:35 AM CDT Lab [facility] Advanced Medicine (CAM) [address] [place] [address] 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 03/05/2025 8:30 AM CDT Office Visit [facility] Medicine Neuro Muscle [address] [facility] 6th [place] [address] [place] [address] Judie Enriquez NP Autoimmune necrotizing myopathy (Primary Dx); 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 03/05/2025 Documentation [facility] Medicine Neuro Muscle [address] [place] [address] Dede Chen, PT from Last 3 Months Surgical History Surgery [...] Average Number of Drinks Not on file Q3: How often do you have si [...] on file Legal Sex Female 3:48 AM INSPECTOR SUBASSEMBLIES Gender Identity Female 07/26/2022 9:02 AM INSPECTOR SUBASSEMBLIES Sexual Orientation Straight 07/26/2022 9: 02 AM INSPECTOR SUBASSEMBLIES Obstetrics History Last Filed Vital Signs Vital Sign Reading Time Taken Comments Blood Pressure 157/79 03/05/2025 8:19 AM CDT Pulse 83 03/05/2025 8:19 AM CDT Temperature 36.8 C (98.2 F) 09/22/2024 7:58 PM INSPECTOR SUBASSEMBLIES Respiratory Rate 19 09/22/2024 7:58 PM INSPECTOR SUBASSEMBLIES Oxygen Saturation 96% 09/22/2024 7:58 PM INSPECTOR SUBASSEMBLIES Inhaled Oxygen Concentration - - Weight 69.4 kg (153 lb) 03/05/2025 8:19 AM CDT Height 162.6 cm (5' 4) 03/05/2025 8:19 AM CDT Body Mass Index 26.26 03/05/2025 8:19 AM CDT Plan of Treatment Health Maintenance Due Date Last Done Comments Breast Cancer Screening-Mammogram 1970 Cervical Cancer Screening 1970 Colon Cancer Screening-Colonoscopy 1970 Depression Screening 1970 Hepatitis B Screening 01/12/1988 Regular Well Visit/Exam 18-64 01/12/1988 Zoster Vaccine (1 of 2) 01/12/2020 DTaP/Tdap/Td Vaccine (2 - Td or Tdap) 01/22/2022 01/23/2012 Influenza Vaccine (#1) 2025 3, 05/20/2020, 05/25/2019, Additional history exists Hepatitis C Screening Completed 09/19/2024, 022 Pneumococcal vaccine <65 Aged Out No longer eligible based on patient's age to complete this topic Procedures Procedure Name Priority Date/Time Associated Diagnosis Comments NEUROMUSCULAR SPECIMEN TRACKING OUTPATIENT Routine 03/08/2025 2:03 PM CDT 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 EGFR Routine 03/05/2025 9:58 AM CDT 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 DIFFERENTIAL AUTO Routine 03/05/2025 9:5 8 AM CDT 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 CREATINE KINASE (CK), TOTAL Routine 03/05/2025 9:58 AM CDT 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 COMPREHENSIVE METABOLIC PANEL Routine 03/05/2025 9:58 AM CDT 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 CBC WITH AUTO DIFFERENTIAL Routine 03/05/2025 9:58 AM CDT 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 NEUROMUSCULAR TESTING Routine 03/05/2025 12:00 AM CDT 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 73 m2 Comment: [...] interpretive data was last reviewed 2021. Blood 03/05/2025 9:58 AM CDT 03/05/2025 10:25 AM CDT us Judie Das Zoe CASING IN LINE SETTER LAB BLOOD ORDERABLES F inal Result [facility] Department [place] [address] * Differential, auto (03/05/2025 9:58 AM CDT) Neutrophil abs 4.71 1.50 - 6.50 K/cumm Imm gran abs 0.01 0.00 - 0.10 K/cumm [facility] Lymphocyte abs 1.69 0.80 - 3.30 K/cumm [facility] Monocyte abs 0.42 0.20 - 0.80 K/cumm [facility] Eosinophil abs 0.05 0.00 - 0.50 K/cumm [facility] Basophil abs 0.06 0.00 - 0.10 K/cumm [facility] Neutrophil pct 67.8 % [facility] Comment: Interpretive Data Percent cell count reference ranges are not reported, since discordance with absolute values may lead to misinterpretation of CBC data. Current Interpretive Data was last revised on 2017. Imm gran pct 0.1 % [facility] Comment: Interpretive Data Percent cell count reference ranges are not reported, since discordance with absolute values may lead to misinterpretation of CBC data. Current Interpretive Data was last revised on 2017. Lymphocyte pct 24.4 % [facility] Comment: Interpretive Data Percent cell count reference ranges are not reported, since discordance with absolute values may lead to misinterpretation of CBC data. Current Interpretive Data was last revised on 2017. Monocyte pct 6.1 % [facility] Comment: Interpretive Data Percent cell count reference ranges are not reported, since discordance with absolute values may lead to misinterpretation of CBC data. Current Interpretive Data was last revised on 2017. Eosinophil pct 0.7 % [facility] Comment: Interpretive Data Percent cell count reference ranges are not reported, since discordance with absolute values may lead to misinterpretation of CBC data. Current Interpretive Data was last revised on 2017. Basophil pct 0.9 % [facility] Comment: Interpretive Data Percent cell count reference ranges are not reported, since discordance with absolute values may lead to misinterpretation of CBC data. Current Interpretive Data was last revised on 2017. Blood 03/05/2025 9:58 AM CDT 03/05/2025 10:25 AM CDT Judie Enriquez CASING IN LINE SETTER LAB BLOOD ORDERABLES F inal Result [facility] Department [place] [address] * (ABNORMAL) CBC with auto differential (03/05/2025 9:58 AM CDT) WBC 6.94 3.80 - 9.90 K/cumm Hgb 14.6 11.9 - 15.5 g/dL [facility] Hct 44.6 35.6 - 45.5 % [facility] Plt 330 150 - 400 K/cumm [facility] MPV 8.9(L) 9.1 - 12.3 fL [facility] RBC 5.00 3.90 - 5.20 M/cumm [facility] MCV 89.2 81.3 - 96.4 fL [facility] MCH 29.2 27.1 - 33.3 pg [facility] MCHC 32.7 32.3 - 35.7 g/dL [facility] RDW CV 12.5 11.1 - 14.9 % [facility] RDW SD 40.9 35.7 - 48.1 fL [facility] NRBC abs 0.00 0.00 - 0.01 K/cumm [facility] Blood 03/05/2025 9:58 AM CDT 03/05/2025 10:25 AM CDT Judie Castilloeyad BURCIAGA LAB BLOOD ORDERABLES F inal Result Performing Organization Address City/[facility]/ZIP Co de Phone Number [facility] Department [place] [address] * (ABNORMAL) Creatine kinase (CK), total (03/05/2025 9:58 AM CDT) Pathologist [facility] CK 3,873(H) 30 - 200 Units/L Blood 03/05/2025 9:58 AM CDT 03/05/2025 10:[address] [facility] Pippadelia Enriquez CASING IN LINE SETTER LAB BLOOD ORDERABLES F inal Result Performing Organization Address [facility] de Phone Number [facility] Department [place] [address] * (ABNORMAL) Comprehensive metabolic panel (03/05/2025 9:58 AM CDT) [facility] Sodium 138 135 - 145 mmol/L Potassium, pl 4.5 3.3 - 4.9 mmol/L [facility] Chloride 103 97 - 110 mmol/L [facility] CO2 24 22 - 32 mmol/L [facility] Anion gap 11 2 - 15 mmol/L [facility] BUN 16 6 - 25 mg/dL [facility] Creatinine 0.44(L) 0.60 - 1.10 mg/dL [facility] Glucose 107 70 - 199 mg/dL [facility] Comment: Interpretive Data Fasting glucose >/= 126 [...] interpretive data was last revised 2022. Calcium 10.1 8.5 - 10.3 mg/dL [facility] Bilirubin, total 0.6 0.1 - 1.2 mg/dL [facility] Protein, pl 9.4(H) 6.5 - 8.5 g/dL [facility] Albumin 3.9 3.5 - 5.0 g/dL [facility] Alk phos 72 40 - 130 Units/L [facility] ALT 144(H) 7 - 45 Units/L [facility] AST 95(H) 10 - 45 Units/L [facility] Blood 03/05/2025 9:58 AM CDT 03/05/2025 10:25 AM CDT Judie Enriquez NP LAB BLOOD ORDERABLES F inal Result Performing Organization Address City/[facility]/ZIP Co de Phone Number [facility] One [facility] Department [place] [address] * Neuromuscular Testing Blood (03/05/2025 12:00 AM CDT) Blood (Serum) 03/05/2025 03/06/2025 Narrative [facility] - 03/31/2025 4:23 PM CDT Please click on the PDF link to view the report containing this result us Judie Enriquez NP LAB PATHOLOGY ORDERABL ES Final Result [facility] Room [address] [place] [id number] * Hepatitis panel, acute Blood (09/19/2024 10:24 PM INSPECTOR SUBASSEMBLIES) Hep A IgM Nonreactive Nonreactive Hep B core IgM Nonreactive Nonreactive [facility] Hep C Ab Nonreactive Nonreactive [facility] Comment:Antibodies to HCV no t detected. Does NOT exclude the possibility of recent exposure to HCV. Current interpretive data was last revised on 22 HepBsAg Nonreactive Nonreactive [facility] Blood 09/19/2024 10:2 4 PM INSPECTOR SUBASSEMBLIES 09/19/2024 10:56 PM INSPECTOR SUBASSEMBLIES Neetu Ron MD PhD LAB MICROBIOLOGY - GENERAL ORDERABLES Final Result [facility] Department [place] [address] from Last 3 Months or Most Recently Relevant to Health Maintenance Insurance [facility] [employer] Advance Directives For more information, please contact: [phone] * Full Code (Latest Code Status on File) Date Activated Date Inactivated Comments 09/19/2024 9:06 PM 09/23/2024 1:46 AM Care Teams Non Destructive Testing Inspector Relationship Specialty Start Date End Date Loree Burns MD PCP - General Family Practice 12/28/20
--- OUTSIDE RECORDS SUMMARY | 2025-04-28 12:04 | XMS_ITS | Clinical Summary ---
Author Organization [facility] Address [facility] [place] [address] Care Team Providers Care Route Agent Name Role Phone Loree Burns MD Primary [...] 10/02/2017 IBS (irritable bowel syndrome) 10/02/2017 Immunizations Immunization Administration Dates Next Due Influenza Adult (Generic) [...] 2:32 PM CDT Height 162.6 cm (5' 4) 01/30/2019 2:32 PM CDT Body Mass Index [...] wi th HPV 01/12/2000 Mammogram Screening 2010 Pneumococcal Vaccine: 50+ Years (1 of 1 - PCV) 01/12/2020 Zoster Vaccines (1 of 2) 01/12/2020 COVID-19 Vaccine (1 - 2023-2 5 season) 2025 Colorectal Cancer Screening Colonoscopy (10 Years) 01/23/2028 [...] this topic Medical Devices Implanted Type Area Transformer Tester Device Identifier Shelf Expiration Date Model / Serial / Lot Left Wrist Procedures Procedure Name Priority Date/Time Associated Diagnosis Comments COLONOSCOPY/EGD GENERIC (SCA N ORDER) Routine 01/22/2018 from Last 3 Months or Most Recently Relevant to Health Maintenance Results * COLONOSCOPY/EGD (01/22/2018) us Documents Scanned SCANNING Final Result from Last 3 Months or Most Recently Relevant to Health Maintenance Insurance Care Teams Route Agent Relationship Specialty Start Date End Date Loree Burns MD PCP - General FAMILY PRACTICE 01/22/18
== END 2025-04-28 10:21 | disposition home or self-care (01) ==
PROVIDERS: PCP Family Medicine; Visit Provider Plastic Surgery
DX: G56.03 Carpal tunnel syndrome, bilateral upper limbs (principal); M19.041 Primary osteoarthritis, right hand; M19.042 Primary osteoarthritis, left hand
CPT/HCPCS: 73130

== ENCOUNTER 2025-06-17 09:12 | Outpatient (CLI) | payer BC, SELFPAY ==
--- NOTE | 2025-06-17 09:40 | NEURO_ITS ---
Impression: # Complains of upper extremities weakness. ? # History of medicine induced myopathy and under the care of specialist at [facility]. ? # No Carpal Tunnel Syndrome. ? # Right Ulnar Neuropathy across the elbow ? # Needle/ EMG exam reveals myopathic pattern proximally (deltoids) Biceps. Nerve Conduction Studies ?Stim Site NR Peak (ms) P-T Amp (?V) Site1 Site2 Delta-P (ms) Dist (cm) Librado (m/s) Left Median Anti Sensory (2-3nd Digit) Wrist ? 2.4 40.9 Wrist 2-3nd Digit 2.4 14.0 58 Wrist ? 2.5 40.4 Wrist 2-3nd Digit 2.4 14.0 58 Right Median Anti Sensory (2-3nd Digit) Wrist ? 2.8 41.4 Wrist 2-3nd Digit 2.8 14.0 50 Wrist ? 2.8 41.4 Wrist 2-3nd Digit 2.8 14.0 50 Left Radial Anti Sensory (Base 1st Digit) Wrist ? 2.1 11.7 Wrist Base 1st Digit 2.1 0.0 Right Radial Anti Sensory (Base 1st Digit) Wrist ? 2.3 5.4 Wrist Base 1st Digit 2.3 0.0 Left Ulnar Anti Sensory (5th Digit) Wrist ? 2.5 39.4 Wrist 5th Digit 2.5 14.0 56 Right Ulnar Anti Sensory (5th Digit) Wrist ? 2.0 37.5 Wrist 5th Digit 2.0 14.0 70 ?Stim Site NR Onset (ms) O-P Amp (mV) Site1 Site2 Delta-0 (ms) Dist (cm) Librado (m/s) Left Median Motor (Abd Poll Brev) Wrist ? 2.9 2.2 Elbow Wrist 4.4 29.0 66 Elbow ? 7.3 1.6 Right Median Motor (Abd Poll Brev) Wrist ? 3.4 1.1 Elbow Wrist 4.2 27.0 64 Elbow ? 7.6 1.1 Left Ulnar Motor (Abd Dig Minimi) Wrist ? 1.3 6.9 A Elbow Wrist 4.4 27.0 61 A Elbow ? 5.7 7.3 B Elbow Wrist 3.5 21.0 60 B Elbow ? 4.8 7.2 Right Ulnar Motor (Abd Dig Minimi) Wrist ? 1.7 7.3 A Elbow Wrist 5.4 30.0 56 A Elbow ? 7.1 5.3 B Elbow Wrist 3.6 19.0 53 B Elbow ? 5.3 4.2 F Wave Studies ?NR F-Lat (ms) L-R F-Lat (ms) Left Median (Mrkrs) (Abd Poll Brev) ? 25.18 0.46 Right Median (Mrkrs) (Abd Poll Brev) ? 24.72 0.46 Left Ulnar (Mrkrs) (Abd Dig Min) ? 24.69 0.08 Right Ulnar (Mrkrs) (Abd Dig Min) ? 24.77 0.08 Electromyography ?Side Muscle Nerve Root Ins Act Fibs Amp Dur Recrt Comment Right 1stDorInt Ulnar C8-T1 Nml Nml Nml Nml Nml Left 1stDorInt Ulnar C8-T1 Nml Nml Nml Nml Nml Right ABD Dig Min Ulnar C8-T1 Nml Nml Nml Nml Nml Left ABD Dig Min Ulnar C8-T1 Nml Nml Nml Nml Nml Left Abd Poll Brev Median C8-T1 Nml Nml Nml Nml Nml Right Abd Poll Brev Median C8-T1 Nml Nml Nml Nml Nml Right Abd Poll Long Radial (Post Int) C7-8 Nml Nml Nml Nml Nml Left Abd Poll Long Radial (Post Int) C7-8 Nml Nml Nml Nml Nml Left Biceps Musculocut C5-6 Nml Nml Decr >12ms +1 Right Biceps Musculocut C5-6 Nml Nml Decr >12ms +1 Left BrachioRad Radial C5-6 Nml Nml Nml Nml Nml Right BrachioRad Radial C5-6 Nml Nml Nml Nml Nml Left Deltoid Axillary C5-6 Nml Nml Decr >12ms +1 Right Deltoid Axillary C5-6 Nml Nml Decr >12ms +1 Right Ext Digitorum Radial (Post Int) C7-8 Nml Nml Nml Nml Nml Left Ext Digitorum Radial (Post Int) C7-8 Nml Nml Nml Nml Nml Right Ext Indicis Radial (Post Int) C7-8 Nml Nml Nml Nml Nml Left Ext Indicis Radial (Post Int) C7-8 Nml Nml Nml Nml Nml Right FlexPolLong Median (Ant Int) C7-8 Nml Nml Nml Nml Nml Left FlexPolLong Median (Ant Int) C7-8 Nml Nml Nml Nml Nml Left PronatorTeres Median C6-7 Nml Nml Nml Nml Nml Right PronatorTeres Median C6-7 Nml Nml Nml Nml Nml Left Triceps Radial C6-7-8 Nml Nml Decr >12ms +1 Right Triceps Radial C6-7-8 Nml Nml Decr >12ms +1
--- OUTSIDE RECORDS SUMMARY | 2025-06-17 09:50 | XMS_ITS | Clinical Summary ---
Author Organization [facility] [employer] Address [address] [place] [address] Care Team Providers Care Deskidding Machine Operator Name Role Phone Unavailable Primary Care Provider Unavailabl e Source Comments [facility] Affiliates and Associated Physician Practices is amultiple site organization consisting of ambulatory clinics and hospital sitesin [place], [place], [place] and [place]. This disclosure is being madepursuant to the Care Everywhere program and may not contain all information available regarding this patient. Last updated 18.[facility] [employer] Immunizations Immunization Administration Dates Next Due INFLUENZA [...] patient's age to complete this topic Insurance [facility] SELF PAY NO INSURANCE Member Subscriber Plan / Payer (Ef fective for All Dates) Name:Edwige Luis Member ID:Not on file Relation to Subscriber:Not on file Name:EDWIGE LUIS Subscriber ID:Not on file (Home) Address: [facility] [place] [address] Payer ID:Not on file Group ID:Not on file Type:Self Pay Address: [place], [place]
--- OUTSIDE RECORDS SUMMARY | 2025-06-17 09:50 | XMS_ITS | Clinical Summary ---
Author Organization [facility] Medical Office Building B Address [address] [place] [address] Care Team Providers Care Industrial Maintenance Instructor Name Role Phone Loree Burns MD Primary Care Provider Allergies Active Allergy Reactions Criticality Noted Date Comments Wvsdeic-Mmd-Hrq Reductase Inhibitors Other (See comments) Low 09/16/2021 [...] 1 tablet (75 mcg total) by mouth bioinformatician before breakfast 5 Active EPINEPHrine 0.3 mg/0.3 mL auto-injection syringe 5 Active acetaminophen-c odeine (TYLENOL with CODEINE #3) 300-30 mg per tablet Take 1-2 tablets by mouth 5 Active Active Problems Problem Noted Date Diagnosed Date 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 Encounters Date Type Department Care Team Description 05/21/2025 10:20 AM CDT Office Visit [facility] Neuro Muscle [address] [facility] 6th [place] [address] [place] [address] Toshia La MD 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); Autoimmune necrotizing myopathy from Last 3 Months Surgical History Surgery [...] Date Smoking Tobacco: Never Smokeless Tobacco: Never AUDIT-C Answer Date Recorded Q1: How often [...] on file Legal Sex Female 3:48 AM SHOP CLERK Gender Identity Female 07/26/2022 9:02 AM SHOP CLERK Sexual Orientation Straight 07/26/2022 9: 02 AM SHOP CLERK Last Filed Vital Signs Vital Sign Reading Time Taken Comments Blood Pressure 134/79 05/21/2025 9:49 AM CDT Pulse 84 05/21/2025 9:49 AM CDT Temperature 36.8 C (98.2 F) 09/22/2024 7:58 PM SHOP CLERK Respiratory Rate 19 09/22/2024 7:58 PM SHOP CLERK Oxygen Saturation 96% 09/22/2024 7:58 PM SHOP CLERK Inhaled Oxygen Concentration - - Weight 72.5 kg (159 lb 12.8 oz) 05/21/2025 9:49 AM CDT Height 162.6 cm (5' 4.02) 05/21/2025 9:49 AM CD T Body Mass Index 27.42 05/21/2025 9:49 AM CDT Plan of Treatment Health Maintenance Due Date Last Done Comments Breast Cancer Screening-Mammogram 1970 Cervical Cancer Screening 1970 Colon Cancer Screening-Colonoscopy 1970 Depression Screening 1970 Hepatitis B Screening 01/12/1988 Regular Well Visit/Exam 18-64 01/12/1988 Zoster Vaccine (1 of 2) 01/12/2020 DTaP/Tdap/Td Vaccine (2 - Td or Tdap) 01/22/2022 01/23/2012 Influenza Vaccine (#1) 2025 4, 05/18/2023, 05/14/2023, Additional history exists Hepatitis C Screening Completed 09/19/2024, 022 Pneumococcal vaccine <65 Aged Out No longer eligible based on patient's age to complete this topic Procedures Procedure Name Priority Date/Time Associated Diagnosis Comments HEPATITIS PANEL, ACUTE Timed 09/19/2024 10:24 PM SHOP CLERK from Last 3 Months or Most Recently Relevant to Health Maintenance Results * Hepatitis panel, acute Blood (09/19/2024 10:24 PM SHOP CLERK) Hep A IgM Nonreactive Nonreactive Hep B core IgM Nonreactive Nonreactive [facility] Hep C Ab Nonreactive Nonreactive [facility] Comment:Antibodies to HCV no t detected. Does NOT exclude the possibility of recent exposure to HCV. Current interpretive data was last revised on 22 HepBsAg Nonreactive Nonreactive [facility] Blood 09/19/2024 10:2 4 PM SHOP CLERK 09/19/2024 10:56 PM SHOP CLERK us Neetu Ron MD PhD LAB MICROBIOLOGY - GENERAL ORDERABLES Final Result [facility] One [facility] [place] [address] from Last 3 Months or Most Recently Relevant to Health Maintenance Insurance [employer] [place] [facility] Advance Directives For more information, please contact: [phone] * Full Code (Latest Code Status on File) Date Activated Date Inactivated Comments 09/19/2024 9:06 PM 09/23/2024 1:46 AM Care Teams Industrial Maintenance Instructor Relationship Specialty Start Date End Date Loree Burns MD PCP - General Family Practice 12/28/20
== END 2025-06-17 09:13 | disposition home or self-care (01) ==
LOC: ANHNEURO 09:14
PROVIDERS: PCP Family Medicine; Visit Provider Plastic Surgery
DX: G56.03 Carpal tunnel syndrome, bilateral upper limbs (principal); G72.9 Myopathy, unspecified; G56.21 Lesion of ulnar nerve, right upper limb
CPT/HCPCS: 95886; 95911

== ENCOUNTER 2025-08-10 08:43 | Outpatient (CLI) | payer BC, SELFPAY ==
--- NOTE | ~2025-08-10 | US_ITS ---
US thyroid INDICATION: Thyroid nodule TECHNIQUE: Real-time sonographic images of the thyroid gland were obtained. COMPARISON: 10/19/2023 FINDINGS: The right thyroid lobe measures 3.9 x 1.4 x 1 cm. The left thyroid lobe measures 4 x 1.1 x 1.2 cm. There is normal echotexture and echogenicity throughout the thyroid gland. In the left lobe there is a small solid hypoechoic wider than tall smoothly marginated mass without echogenic foci measuring 7 mm, TR 4. No additional masses are identified in either lobe. Normal vascular flow is present. IMPRESSION: 1. Benign-appearing left thyroid mass measuring 7 mm, TR 4. No masses meet sonographic criteria for biopsy. Reviewed, dictated and finalized at location O. NG HAND IMPRESSION: 1. Benign-appearing left thyroid mass measuring 7 mm, TR 4. No masses meet son ographic criteria for biopsy.
== END 2025-08-10 08:44 | disposition home or self-care (01) ==
LOC: GOSHIMG 08:44
PROVIDERS: PCP Family Medicine; Visit Provider Internal Medicine
DX: E78.5 Hyperlipidemia, unspecified (principal); E55.9 Vitamin D deficiency, unspecified; E03.9 Hypothyroidism, unspecified; E04.9 Nontoxic goiter, unspecified; E11.9 Type 2 diabetes mellitus without complications
CPT/HCPCS: 76536